=== PATIENT | male | born 1940 | race Caucasian/White ===

== ENCOUNTER 2020-08-17 20:36 | Inpatient (IN) | payer MEDICARE, SELFPAY ==
[2020-08-17] VITALS (13 sets, daily range): BP systolic 54–150; BP diastolic 45–107; PULSE 113–163; RESP 22–36; TEMP 35.7–36.9; O2SAT 98–100
--- NOTE | ~2020-08-17 | XR_ITS ---
EXAMINATION: XR chest 1V portable INDICATION: Shortness of breath TECHNIQUE: Portable AP chest at 2120 hours COMPARISON: 12/12/2014 FINDINGS: There are patchy opacities of the mid and lower lung zones. There is no pleural effusion or pneumothorax. The cardiomediastinal silhouette is normal. Linear subpleural opacities are seen in th e lower lung zones. IMPRESSION: 1. Patchy opacities of the mid and lower lung zones, consistent with pulmonary edema, pneumonia, or a telectasis. Reviewed, dictated and finalized at location A. DDED SOFTWARE DEVELOPER IMPRESSION: 1. Patchy opacities of the mid and lower lung zones, consistent with pulmonary edema, pneumonia, or atelectasis.
[2020-08-17] MEDS: LEVALBUTEROL NEB 1.25 MG/3 ML INHALATION ×2 (20:45→21:10)
--- NOTE | 2020-08-17 20:45 | ECG_ITS ---
Measurements Intervals [place] Rate: 160 P: [place]: 0 QRS: 251 QRSD: 125 T: 69 QT: 297 QTc: 484 Interpretive Statements ATRIAL FLUTTER/TACHYCARDIA WITH RAPID VENTRICULAR RESPONSE VENTRICULAR PREMATURE COMPLEXES RIGHT AXIS DEVIATION RIGHT BUNDLE BRANCH BLOCK ST ELEVATION IN INFERIOR LEADS- CONSIDER ACUTE INFARCT BASELINE ARTIFACT- I, II, III, AVR, AVL, AVF, V1-V3, V6 ABNORMAL ECG Electronically Signed On 08-18-2020 8:01:02 MIDDLE SCHOOL COACH by Otis Tejada D.O.
[2020-08-17] MEDS: SODIUM CHLORIDE 0.9% IV 1,000 ML 999 ML (21:01)
[2020-08-17] MEDS: dilTIAZem HCl INJ 25 MG/5 ML VIAL 20 MG IV PUSH (21:03)
[2020-08-17 21:08] LABS: Base Excess ABG -4.7 mmol/L (0-2); Oxygen Content ABG 20.7 %vol (16.0-22.0); Oxygen Saturation ABG 98.6 % (95-97); Oxyhemoglobin 98.1 % (94-100); PO2 ABG 160.9 mmHg (75-85); Total Hemoglobin 14.8 g/dL; pH ABG 7.08 (7.35-7.45)
[2020-08-17 21:13] LABS: Hematocrit 48.5 % (37.0-46.0); Hemoglobin 14.7 g/dL (12.4-15.3); Mean Corpuscular HGB Conc 30.3 g/dL (32.0-36.0); Mean Corpuscular Hemoglobin 30.6 pg (27.0-31.0); Mean Corpuscular Volume 100.8 fL (78.0-102.0); Mean Platelet Volume 11.6 fl (8.7-11.0); Platelet Count Result 262 K/mm3 (150-420); Red Blood Count 4.81 M/mm3 (4.70-6.10); Red Cell Distribution Width 12.6 % (11.6-14.4)
[2020-08-17 21:15] LABS: Device OTHER DEVICE; Modified Allen's Test Pass; Site Drawn RIGHT RADIAL
[2020-08-17] MEDS: MAGNESIUM SULF 2 GM/WATER 50ML 2 GM/50 ML BAG IVPB (21:17)
[2020-08-17] MEDS: IPRATROPIUM 0.5 MG/ALBUTEROL SULFATE 2.5 MG AMPUL.NEB 3 ML INHALATION (21:27)
[2020-08-17 21:28] LABS: Alanine Aminotransferase 107 U/L (16-63); Albumin Level 3.7 g/dL (3.4-5.0); Alkaline Phosphatase 128 U/L (46-116); Anion Gap 9 mmol/L (8-16); Aspartate Amino Transferase 96 U/L (15-37); Bilirubin,Total 0.4 mg/dL (0.00-1.00); Blood Urea Nitrogen 15 mg/dL (7-18); Carbon Dioxide 35 mmol/L (21-32); Chloride 103 mmol/L (98-108); Estimated Glomerular Filt Rate 53; Glucose 236 mg/dL (70-99); Magnesium 2.7 mg/dL (1.8-2.4); Osmolality Calculated 312 mOsm/kg (285-295); Potassium 4.1 mmol/L (3.5-5.1); Sodium 147 mmol/L (136-145); Total Protein 7.7 g/dL (6.4-8.2)
[2020-08-17 21:29] LABS: Prothrombin Time 10.9 Seconds (9.50-12.10)
[2020-08-17 21:31] LABS: White Blood Count 20.9 K/mm3 (4.8-10.8)
[2020-08-17 21:31] LABS: Lactic Acid Reflex 6.4 mmol/L (0.4-2.0)
[2020-08-17 21:34] LABS: Troponin I 77.5 ng/L (0.00-60.4)
[2020-08-17 21:41] LABS: SARS-CoV-2 Ag Negative (Negative)
[2020-08-17 21:49] LABS: BNP 130 pg/mL (0-100)
[2020-08-17 21:50] LABS: Band Neutrophils Percent 3 % (0-6); Basophils Percent Manual 1 % (0-1); Eosinophils Absolute Manual 1.25 K/mm3 (0.02-0.5); Eosinophils Percent Manual 6 % (1-6); Lymphocytes Absolute Manual 10.24 K/mm3 (1.1-4.5); Lymphocytes Percent Manual 49 % (18-44); Monocytes Absolute Manual 0.62 K/mm3 (0.1-0.90); Monocytes Percent Manual 3 % (3-9); Neutrophils Absolute Manual 8.56 K/mm3 (1.3-6.7); Neutrophils Percent Manual 38 % (46-73); Platelet Estimate Adequate (Adequate); Total Cells Counted 100
[2020-08-17 21:51] LABS: Atypical Lymphocytes Present; Platelet Clumps Present
[2020-08-17 21:53] LABS: D Dimer 0.64 mg/L (0.19-0.50)
--- NOTE | 2020-08-17 22:15 | ED.SOB ---
HPI - SOB/Dyspnea General Chief Complaint: Shortness of Breath/Dyspnea Stated Complaint: copd attack Source: patient, family and EMS Mode of arrival: EMS Limitations: no limitations and altered mental status History of Present Illness HPI Narrative: this is a 79-year-old male that presents via EMS with some shortness of breath has been going on for last 2 to 3 days was being treated for a pneumonia or bronchitis by his primary care physician and finished his course of antibiotics about a week ago, patient has been on home O2 at5L with some nebulizers and has used his albuterol nebulizer at home but was having difficulty breathing and called EMS. EN route EMS some put him on a non-rebreather and gave him a dose of Solu-Medrol. The patient was alert oriented and denied chest pain, with no fever or chills no chest pain was short of breath and was complaining of difficulty breathing with no nausea vomiting no abdominal pain no audible wheezing, the patient was not moving much air. Patient was alert and his is present discussed DNR status and the patient and his had discussed in the past that they did not want intubation are CPR performed. MD elicited complaint: shortness of breath Pertinent past history: COPD and pneumonia Onset (ago): day(s) Context: recent illness Timing: constant and progressively worsening Severity: severe Exacerbating factors: nothing Relieving factors: nothing Known history of: COPD Associated symptoms: cough Treatment prior to arrival: oxygen Related Data Home oxygen amount: other ( 5L) Home Medications Medication Instructions Recorded Confirmed Adults Multivitamin 1 tablet PO DAILY 08/17/20 08/17/20 albuterol sulfate 2.5 mg CONTINUOUS NEBULIZATION PRN 08/17/20 08/17/20 PRN albuterol sulfate [Ventolin HFA] 2 puff INHALATION BID 08/17/20 08/17/20 budesonide 0.5 mg INHALATION DAILY 08/17/20 08/17/20 budesonide-formoterol [Symbicort] 2 puff INHALATION BID 08/17/20 08/17/20 formoterol fumarate [Perforomist] 20 mcg INHALATION BID 08/17/20 08/17/20 lisinopril 10 mg PO DAILY 08/17/20 08/17/20 montelukast 10 mg PO DAILY 08/17/20 08/17/20 Allergies Allergy/AdvReac Type Severity Reaction Status Date / Time No Known Allergies Allergy Verified 08/17/20 21:04 Review of Systems Review of Systems: All systems reviewed & are unremarkable except as noted in HPI and below PMFSH Past Medical History Medical History COPD (chronic obstructive pulmonary disease) Exam Const: General: no acute distress and alert Orientation/consciousness: patient oriented x3 HENMT: Head: normal to inspection Eyes: Conjunctivae: conjunctivae normal Pupils: Equal, round and reactive pupils present EOM: EOMs intact bilaterally Direct Ophthalmoscopy: no photophobia Neck: Neck: normal visual inspection, no lymphadenopathy and no meningeal signs Chest: Chest palpation & inspection: normal inspection of the chest Resp: Effort & Inspection: labored, retractions, tachypneic and uses accessory muscles Auscultation: diminished lung sounds Cardio: Rate: tachycardic Rhythm: abnormal rhythm GI: GI Palp: Yes Soft to palpation Skin: General skin exam: normal color Rashes: no rashes Neuro: General: patient oriented x3, moves all extremities, no meningeal signs and no focal motor deficits Extrem: General: normal to inspection Psych: Mental Status: mental status grossly normal Affect: normal affect Thought content: Yes Normal thought content present Course Course Emergency Course: patient having difficulty moving air and after reassessment with some BiPAP the patient currently has altered mental status and currently on BiPAP had received Xopenex and albuterol along with some IV magnesium. The patient also had AFib which is not in his previous past medical history patient was started on Cardizem bolus and currently on a Cardizem drip. Patient currently is not res
[2020-08-17 22:43] LABS: Base Excess ABG -5.1 mmol/L (0-2); HCO3 ABG 25.7 mmol/L (23-29); Oxygen Content ABG 20.6 %vol (16.0-22.0); Oxygen Saturation ABG 99.5 % (95-97); Oxyhemoglobin 98.9 % (94-100); PCO2 ABG 76.9 mmHg (35-45); PO2 ABG 285.8 mmHg (75-85); Total Hemoglobin 14.3 g/dL; pH ABG 7.14 (7.35-7.45)
[2020-08-17 22:44] LABS: Device BIPAP; Modified Allen's Test Pass; Site Drawn RIGHT RADIAL
[2020-08-17 22:49] LABS: Expiratory Pressure 5 cmH2O; Inspiratory Pressure 12 cmH2O
--- NOTE | 2020-08-17 23:15 | PC.NURSE ---
Patient arrived to floor from ER at 2300. RT in room and assisted patient on Bipap at 14-05-70% Fi02. Color pale. Patient responding to commercial insurance underwriter via touch and name. Patient stating i cant breathe . Breathing techniques and relaxation techniques assisted with patient. Telemetry was added with continuous pulse ox. HR sinus tach 126 and Sp02 at 98% Bipap. BP at 54/45 checked x2. windows migration technician notified. aware. at bedside with patient.
--- NOTE | 2020-08-17 23:45 | PC.NURSE ---
New order received from MD to decrease Cardizem drip to 5mg/hr. Medication was titrated from 10mg to 5mg.
[2020-08-17] MEDS: APIXABAN 2.5 MG TABLET 5 MG PO (23:48)
[2020-08-17] MEDS: methylPREDNISolone SOD SUCC 125 MG VIAL 60 MG IV PUSH (23:48)
[2020-08-17] MEDS: LACTATED RINGERS 1,000 ML 100 ML IV CONT (23:48)
[2020-08-18] VITALS (24 sets, daily range): BP systolic 77–111; BP diastolic 56–69; PULSE 97–131; RESP 22–24; TEMP 36.5–37.3; O2SAT 97–100; BMI 20.9
[2020-08-18 00:10] LABS: Reflex Lactic Acid Yes or No Add Lactic
[2020-08-18] MEDS: IPRATROPIUM 0.5 MG/ALBUTEROL SULFATE 2.5 MG AMPUL.NEB 3 ML INHALATION ×4 (00:26→17:41)
[2020-08-18 00:29] LABS: Base Excess ABG -5.4 mmol/L (0-2); HCO3 ABG 23.7 mmol/L (23-29); Oxygen Content ABG 19.9 %vol (16.0-22.0); Oxygen Saturation ABG 98.6 % (95-97); Oxyhemoglobin 98.1 % (94-100); PCO2 ABG 62.5 mmHg (35-45); PO2 ABG 140.3 mmHg (75-85); Total Hemoglobin 14.3 g/dL
[2020-08-18 00:31] LABS: Device BIPAP; Modified Allen's Test Pass; Site Drawn RIGHT RADIAL
[2020-08-18 00:33] LABS: Expiratory Pressure 5 cmH2O; Inspiratory Pressure 14 cmH2O
--- NOTE | 2020-08-18 00:50 | PC.NURSE ---
new order received to NASIR coombs
[2020-08-18 00:51] LABS: Lactic Acid 2.9 mmol/L (0.4-2.0)
[2020-08-18] MEDS: SODIUM CHLORIDE 0.9% IV 500 ML IV CONT (01:01)
--- NOTE | 2020-08-18 01:11 | PC.NURSE ---
Doctor notified of lab results
--- NOTE | 2020-08-18 01:24 | PC.NURSE ---
Genetics Teacher rechecked BP at 0030 and was 77/61 HR 122. on phone with charge entry clerk and new orders stop cardizem drip and give 1x 500 NS bolus.
--- NOTE | 2020-08-18 01:25 | PC.NURSE ---
Cardizem drip was stopped at 0045.
--- NOTE | 2020-08-18 02:11 | PC.NURSE ---
Bolus completed at 0205, NS was stopped. Emblem Fuser Tender rechecked BP 90/63 HR 105. golf cart assembler notified.
[2020-08-18] MEDS: methylPREDNISolone SOD SUCC 125 MG VIAL 60 MG IV PUSH ×3 (05:45→17:41)
[2020-08-18 06:02] LABS: Base Excess ABG 1.7 mmol/L (0-2); HCO3 ABG 30.1 mmol/L (23-29); Oxygen Content ABG 19.5 %vol (16.0-22.0); Oxygen Saturation ABG 99.4 % (95-97); Oxyhemoglobin 98.7 % (94-100); PCO2 ABG 65.6 mmHg (35-45); PO2 ABG 277.5 mmHg (75-85); Total Hemoglobin 13.6 g/dL; pH ABG 7.28 (7.35-7.45)
[2020-08-18 06:07] LABS: Device BIPAP; Modified Allen's Test Pass; Site Drawn RIGHT RADIAL
[2020-08-18 06:08] LABS: Expiratory Pressure 5 cmH2O; Inspiratory Pressure 14 cmH2O
[2020-08-18 06:11] LABS: Basophils Absolute Auto 0.02 K/mm3 (0.00-0.10); Basophils Percent Auto 0.1 % (0.0-1.0); Eosinophils Absolute Auto 0.01 K/mm3 (0.02-0.50); Eosinophils Percent Auto 0.1 % (1.0-6.0); Hematocrit 42.3 % (37.0-46.0); Immature Granulocyte Absolute 0.07 K/mm3 (0.00-0.00); Immature Granulocyte Percent A 0.5 % (0.0-0.0); Lymphocytes Absolute Auto 0.49 K/mm3 (1.10-4.50); Lymphocytes Percent Auto 3.5 % (18.0-42.0); Mean Corpuscular HGB Conc 30.7 g/dL (32.0-36.0); Mean Corpuscular Hemoglobin 30.9 pg (27.0-31.0); Mean Corpuscular Volume 100.5 fL (78.0-102.0); Mean Platelet Volume 11.3 fl (8.7-11.0); Monocytes Absolute Auto 0.66 K/mm3 (0.10-0.90); Monocytes Percent Auto 4.7 % (2.0-11.0); Neutrophils Absolute Auto 12.8 K/mm3 (1.7-7.2); Neutrophils Percent Auto 91.1 % (50.0-70.0); Platelet Count Result 185 K/mm3 (150-420); Red Blood Count 4.21 M/mm3 (4.70-6.10); Red Cell Distribution Width 12.9 % (11.6-14.4); White Blood Count 14.1 K/mm3 (4.8-10.8)
[2020-08-18 06:36] LABS: Lactic Acid Reflex 3.5 mmol/L (0.4-2.0)
[2020-08-18 06:39] LABS: Alanine Aminotransferase 186 U/L (16-63); Alkaline Phosphatase 119 U/L (46-116); Anion Gap 5 mmol/L (8-16); Aspartate Amino Transferase 111 U/L (15-37); Bilirubin,Total 0.3 mg/dL (0.00-1.00); Blood Urea Nitrogen 23 mg/dL (7-18); Calcium 8.6 mg/dL (8.5-10.1); Carbon Dioxide 32 mmol/L (21-32); Chloride 107 mmol/L (98-108); Estimated CRCL calculation 28 ml/min; Estimated Glomerular Filt Rate 37; Glucose 150 mg/dL (70-99); Magnesium 2.9 mg/dL (1.8-2.4); Osmolality Calculated 304 mOsm/kg (285-295); Potassium 5.3 mmol/L (3.5-5.1); Sodium 144 mmol/L (136-145); Total Protein 6.5 g/dL (6.4-8.2)
--- NOTE | 2020-08-18 07:56 | PC.NURSE ---
CHRISTOPHER Trevizo decreased bipap fio2 from 70% to 50%
[2020-08-18 08:07] LABS: BNP 423 pg/mL (0-100)
--- NOTE | 2020-08-18 08:11 | PM.IMHP ---
H&P: HPI History of Present Illness Date/Time: 08/18/20 08:11 Chief Complaint: COPD Exacerbation Narrative: Camden Herrera is a 79 year old male who came to the ER last night with COPD exacerbation, respiratory failure. Pt was unresponsive. He started on BiPAP and began to show improvement with his ABGs, initial reading pH 7.08, pCO2 96, pO2 160.9, HCO3 28, and SpO2 98.6. At 1615 hours ABG results: 7.36, 56.5, 159.5, 31.2, 99.1 respectively. Pt had A fib and was started on a Cardizem drip and became hypotensive and then the Cardizem drip was discontinued and the BP increased to the 90s-100s systolic. Today Pt is in SR to ST. Pt was alert and oriented x 3 this AM. Pt has been making a good recovery today. Denies CP, N/V, Abdominal pain, numbness, tingling, fevers, chills. He is COVID Negative PMHx includes COPD, HTN, Allergies Review of Systems Constitutional: Constitutional: Reports no additional constitutional complaints, Denies body ache(s), Denies chills, Denies fever(s) and Denies headache(s) Cardiovascular: Cardiovascular: Reports no additional cardiovascular complaints, Denies chest pain and Denies chest pain at rest Respiratory: Respiratory: Reports no additional respiratory complaints, Denies chest congestion and Reports dyspnea (when off of the BiPAP with NC @ 6L/min eating) Gastrointestinal: Gastrointestinal: Reports no additional gastrointestinal complaints Genitourinary: Genitourinary: Reports no additional male genitourinary complaints Comments: nursing staffing coordinator informed me Pt has only had 40 mls of urine output. (Pt does have LR at 100 ml/h.) Musculoskeletal: Musculoskeletal: Reports no additional musculoskeletal complaints Neurologic: Reports system reviewed and no additional complaints, except as documented Comments: admits to improvement from when he was first taken to the ER which he admits he has no recollection Psychiatric: Psychiatric: Reports no additional psychiatric complaints [facility] Past Medical History Medical History (Updated 08/18/20 @ 17:39 by PAULY Chacon) COPD (chronic obstructive pulmonary disease) Hypertension Surgical History Surgical History (Updated 08/18/20 @ 16:45 by PAULY Chacon) History of cataract surgery Hx of surgical amputation of finger Family History Family History (Updated 08/18/20 @ 16:46 by PAULY Chacon) Mother Acute myocardial infarction Father Emphysema lung Sibling Myocardial infarct Sibling Myocardial infarct Sibling Myocardial infarct Social History Social History (Updated 08/18/20 @ 16:48 by PAULY Chacon) Social History: 30-35 years smoker of 2 PPD, Quit at age 50 Smoking status: Former smoker Tobacco type: cigarettes Alcohol intake: current Drinks per week: 1 Substance use: former Substance use type: does not use Gender identity (if verbalized by the patient): Male Spiritual care concerns: No Meds Home Medications and Allergies Home Medications Medication Instructions Recorded Confirmed Type Adults Multivitamin 1 tablet PO DAILY 08/17/20 08/17/20 History albuterol sulfate 2.5 mg CONTINUOUS NEBULIZATION PRN 08/17/20 08/17/20 History PRN albuterol sulfate [Ventolin HFA] 2 puff INHALATION BID 08/17/20 08/17/20 History budesonide 0.5 mg INHALATION DAILY 08/17/20 08/17/20 History budesonide-formoterol [Symbicort] 2 puff INHALATION BID 08/17/20 08/17/20 History formoterol fumarate [Perforomist] 20 mcg INHALATION BID 08/17/20 08/17/20 History lisinopril 10 mg PO DAILY 08/17/20 08/17/20 History montelukast 10 mg PO DAILY 08/17/20 08/17/20 History Allergies Allergy/AdvReac Type Severity Reaction Status Date / Time No Known Allergies Allergy Verified 08/17/20 21:04 Vital Signs Vital Signs - 24 hr 08/17/20 20:36 08/17/20 20:45 08/17/20 21:10 Temperature 98.4 F Pulse Rate 159 H 163 H 125 H Respiratory Rate 36 H 36 H 36 H Blood Pressure 150/107 H Pulse Oximetry 100 100 100
--- NOTE | 2020-08-18 08:30 | PC.NURSE ---
Bipap removed 3 liters o2 per nasal cannula applied for patient to eat breakfast. 0835 nasal cannula increased from 3 liters to 6 liters. 0845 Bipap reapplied. Patient could not tolerate nasal cannula
[2020-08-18] MEDS: APIXABAN 2.5 MG TABLET 5 MG PO ×2 (09:00→20:36)
[2020-08-18 10:46] LABS: Phosphorus 4.7 mg/dL (2.6-4.7)
--- NOTE | 2020-08-18 12:30 | PC.NURSE ---
CHRISTOPHER Trevizo decreased FIo2 to 40%
[2020-08-18] MEDS: LACTATED RINGERS 1,000 ML 100 ML IV CONT ×2 (13:33→18:21)
--- NOTE | 2020-08-18 13:33 | PC.NURSE ---
Patient has not urinated so far today. LR@100ml/hr restarted
[2020-08-18 15:14] LABS: Base Excess ABG 4.4 mmol/L (0-2); HCO3 ABG 31.2 mmol/L (23-29); Oxygen Content ABG 18.4 %vol (16.0-22.0); Oxygen Saturation ABG 99.1 % (95-97); Oxyhemoglobin 98.3 % (94-100); PCO2 ABG 56.5 mmHg (35-45); PO2 ABG 159.5 mmHg (75-85); Total Hemoglobin 13.1 g/dL; pH ABG 7.36 (7.35-7.45)
[2020-08-18 15:16] LABS: Device BIPAP; Modified Allen's Test Pass; Site Drawn RIGHT RADIAL
[2020-08-18 15:20] LABS: Expiratory Pressure 5 cmH2O; Inspiratory Pressure 14 cmH2O
--- NOTE | 2020-08-18 16:00 | PC.NURSE ---
Bipap decreased IPAP from14 to 12. FIO2 from 40% to 30%. ABG ordered for 1999
[2020-08-18] MEDS: guaiFENesin/DEXTROMETHORPHAN 5 ML UDC 10 ML PO (17:40)
[2020-08-18] MEDS: LACTATED RINGERS 500 ML 999 ML IV CONT (18:02)
[2020-08-18 20:22] LABS: Base Excess ABG 2.7 mmol/L (0-2); HCO3 ABG 28.5 mmol/L (23-29); Oxygen Content ABG 16.8 %vol (16.0-22.0); Oxygen Saturation ABG 97.1 % (95-97); Oxyhemoglobin 96.7 % (94-100); PCO2 ABG 48.9 mmHg (35-45); Total Hemoglobin 12.3 g/dL; pH ABG 7.38 (7.35-7.45)
[2020-08-18 20:23] LABS: Device BIPAP; Modified Allen's Test Pass; Site Drawn RIGHT RADIAL
[2020-08-18 20:24] LABS: Expiratory Pressure 5 cmH2O; Inspiratory Pressure 14 cmH2O
[2020-08-18] MEDS: TAMSULOSIN HCL 0.4 MG CAPSULE PO (20:36)
[2020-08-18 20:41] LABS: Lactic Acid Reflex 1.3 mmol/L (0.4-2.0)
--- NOTE | 2020-08-18 21:18 | PC.NURSE ---
Audograph Operator removed 18g LAC unable to flush. Catheter was bent and partially removed from patients arm. Audograph Operator removed rest of catheter, intact. Patient denies any c/o pain.
--- NOTE | 2020-08-18 22:11 | PC.NURSE ---
UA was obtained and sent to lab for testing. Awaiting for results.
[2020-08-18 22:25] LABS: Add Urine Microscopic? YES; Appearance Urine Clear (Clear); Bilirubin Urine Negative (Negative); Blood Urine Negative (Negative); Color Urine Yellow (Yellow); Glucose Urine UA Negative (Negative); Ketones Urine Negative (Negative); Leukocyte Esterase Ur Negative (Negative); Nitrate Urine Negative (Negative); Protein Urine Trace (Negative); Specific Grav Ur >= 1.030 (1.010-1.020); Urobilinogen Urine 0.2 mg/dL (0.2-1.0); pH Urine 5.5 (5.0-8.0)
[2020-08-18 22:31] LABS: Squamous Epithelial Cell Urine Rare /hpf (Few)
[2020-08-18 23:17] LABS: Troponin I 716.3 ng/L (0.00-60.4)
--- NOTE | 2020-08-18 23:18 | PC.NURSE ---
Addendum entered by Anahi Nagy RN 08/19/20 00:30: Correction: troponin level 716.3 Original Note: Pool Hall Inspector spoke with MD in regards to troponin level of 753. No new orders at this time. floor worker transfer bay notified.
[2020-08-19] VITALS (14 sets, daily range): BP systolic 104–157; BP diastolic 57–93; PULSE 93–127; RESP 20–24; TEMP 36.6–37.3; O2SAT 94–99
--- NOTE | 2020-08-19 00:18 | PC.NURSE ---
troponin level had to repeated. Doctor aware of results
[2020-08-19] MEDS: guaiFENesin/DEXTROMETHORPHAN 5 ML UDC 10 ML PO ×3 (00:33→12:25)
[2020-08-19] MEDS: IPRATROPIUM 0.5 MG/ALBUTEROL SULFATE 2.5 MG AMPUL.NEB 3 ML INHALATION ×3 (00:33→12:47)
[2020-08-19] MEDS: methylPREDNISolone SOD SUCC 125 MG VIAL 60 MG IV PUSH ×3 (00:33→12:25)
[2020-08-19 05:28] LABS: Base Excess ABG 4.8 mmol/L (0-2); Basophils Absolute Auto 0.02 K/mm3 (0.00-0.10); Basophils Percent Auto 0.1 % (0.0-1.0); Carboxyhemoglobin 0.3 % (0-1.5); HCO3 ABG 30.3 mmol/L (23-29); Hematocrit 35.2 % (37.0-46.0); Hemoglobin 10.8 g/dL (12.4-15.3); Immature Granulocyte Absolute 0.06 K/mm3 (0.00-0.00); Immature Granulocyte Percent A 0.4 % (0.0-0.0); Lymphocytes Absolute Auto 0.98 K/mm3 (1.10-4.50); Mean Corpuscular HGB Conc 30.7 g/dL (32.0-36.0); Mean Corpuscular Hemoglobin 30.1 pg (27.0-31.0); Mean Corpuscular Volume 98.1 fL (78.0-102.0); Mean Platelet Volume 11.1 fl (8.7-11.0); Methemoglobin ABG 0.3 % (0-1.5); Modified Allen's Test Pass; Monocytes Absolute Auto 0.74 K/mm3 (0.10-0.90); Monocytes Percent Auto 5.3 % (2.0-11.0); Neutrophils Absolute Auto 12.2 K/mm3 (1.7-7.2); Neutrophils Percent Auto 87.2 % (50.0-70.0); Oxygen Content ABG 15.6 %vol (16.0-22.0); Oxygen Saturation ABG 97.7 % (95-97); Oxyhemoglobin 97.1 % (94-100); PCO2 ABG 48.9 mmHg (35-45); PO2 ABG 109.4 mmHg (75-85); Platelet Count Result 161 K/mm3 (150-420); Red Blood Count 3.59 M/mm3 (4.70-6.10); Red Cell Distribution Width 13.1 % (11.6-14.4); Reduced Hemoglobin 2.3 % (0-1.5); Site Drawn RIGHT RADIAL; Total Hemoglobin 11.3 g/dL; pH ABG 7.41 (7.35-7.45)
[2020-08-19 05:29] LABS: Device BIPAP; Expiratory Pressure 5 cmH2O; Inspiratory Pressure 14 cmH2O
[2020-08-19] MEDS: LACTATED RINGERS 1,000 ML 100 ML IV CONT (05:38)
[2020-08-19 05:48] LABS: Alanine Aminotransferase 116 U/L (16-63); Albumin Level 2.8 g/dL (3.4-5.0); Alkaline Phosphatase 86 U/L (46-116); Anion Gap 3 mmol/L (8-16); Aspartate Amino Transferase 53 U/L (15-37); Bilirubin,Total 0.3 mg/dL (0.00-1.00); Blood Urea Nitrogen 30 mg/dL (7-18); Calcium 8.7 mg/dL (8.5-10.1); Carbon Dioxide 34 mmol/L (21-32); Chloride 104 mmol/L (98-108); Estimated CRCL calculation 40 ml/min; Estimated Glomerular Filt Rate 55; Glucose 133 mg/dL (70-99); Osmolality Calculated 300 mOsm/kg (285-295); Potassium 4.4 mmol/L (3.5-5.1); Sodium 141 mmol/L (136-145); Total Protein 5.9 g/dL (6.4-8.2)
[2020-08-19 05:49] LABS: Lactic Acid Reflex 1.7 mmol/L (0.4-2.0)
--- NOTE | 2020-08-19 08:21 | ECG_ITS ---
Measurements Intervals [place] Rate: 112 P: 90 [place]: 120 QRS: 113 QRSD: 133 T: -60 QT: 313 QTc: 428 Interpretive Statements SINUS TACHYCARDIA RIGHT BUNDLE BRANCH BLOCK LEFT POSTERIOR FASCICULAR BLOCK BASELINE ARTIFACT- I, III, AVL, AVF ABNORMAL ECG Electronically Signed On 08-19-2020 8:37:06 CO FOUNDER AND CHIEF STRATEGY OFFICER by Otis Tejada D.O.
[2020-08-19 09:17] LABS: Magnesium 2.5 mg/dL (1.8-2.4)
[2020-08-19] MEDS: APIXABAN 2.5 MG TABLET 5 MG PO (09:28)
[2020-08-19] MEDS: ALBUTEROL SULFATE NEB 2.5 MG/3 ML INH INHALATION (11:00)
[2020-08-19] MEDS: SALINE 0.65% NAS SOLN 44 ML BTL 1 SPRAY NASAL (11:35)
[2020-08-19 12:55] LABS: Troponin I 530.7 ng/L (0.00-60.4)
--- NOTE | 2020-08-19 13:27 | PM.DS ---
DS: Admitting Diagnosis Admitting Diagnosis Admitting Diagnosis: Pneumonia, COPD Exacerbation, Sepsis, new onset A fib DS: Discharge Diagnosis Discharge Diagnosis (1) Sepsis: Qualifiers: Acute respiratory failure type: with hypercapnia Sepsis acute organ dysfunction status: with acute organ dysfunction Severe sepsis acute organ dysfunction type: acute respiratory failure Code(s): A41.9 - Sepsis, unspecified organism Status: Acute Assessment and Plan: 08/18/2020 WBC 20.9 upon arrival now 14.1, LA 6.4 then 2.9 now 3.5, Hypotensive, Respiratory failure, Pneumonia, RR 24, Blood Cx Pending, Monitor VS, Cardiac Monitoring 08/19/2020 Improved, WBC 14, LA 1.7, Improved BP average 102/60 last 5 readings, RR 24, ST 100s-110, afebrile, Blood Cx still pending (2) Community acquired pneumonia: Qualifiers: Laterality: unspecified laterality Qualified Code(s): J18.9 - Pneumonia, unspecified organism Code(s): J18.9 - Pneumonia, unspecified organism Status: Acute Assessment and Plan: 08/18/2020 Started on Rocephin and Azithromycin, on BiPAP for respiratory failure d/t COPD Exacerbation and Pneumonia, Monitor VS, SpO2, respiratory status 08/19/2020 Continue with Ab as noted above, no on NC 3L/min, SpO2 92%, ST, no CP, given IS and Flutter Valve to assist with opening lungs and helping with coughing, Pt has off and on sweats which has been ongoing per the for months (3) COPD (chronic obstructive pulmonary disease): Qualifiers: COPD type: COPD with acute exacerbation Qualified Code(s): J44.1 - Chronic obstructive pulmonary disease with (acute) exacerbation Code(s): J44.9 - Chronic obstructive pulmonary disease, unspecified Status: Acute Assessment and Plan: 08/18/2020 DuoNeb Q6H, Methylprednisolone 60 mg Q6H, Robitussin DM 10 ml Q6H, BiPAP, VS, Residential Real Estate Agent 08/19/2020 Continue as noted above, adding IS and Flutter Valve, Pt was anxious about transfer to another facility and 0.5mg Ativan given SL. ABG at 0520 hours pH 7.41, CO2 48.9, O2109.4, HCO3 30.3, SpO2 97.7% nicely improved since initial results, Lung sound slightly improved since yesterday (4) Atrial fibrillation: Qualifiers: Atrial fibrillation type: unspecified Qualified Code(s): I48.91 - Unspecified atrial fibrillation Code(s): I48.91 - Unspecified atrial fibrillation Status: Acute Assessment and Plan: 08/18/2020 Cardizem started then stopped d/t Hypotension, Eliquis started, Currently SR to ST without chest pain, Troponin was 77.5 then 819, Pt denies CP, likely elevated d/t hypoxia, A fib likely d/t COPD exacerbation -> Hypoxia/Hypercapnia, Pt was unresponsive for some time in ER and as noted above A&O X 3 now, currently not on cardiac mediation, BNP 130 then 423 likely d/t cardiac strain r/t hypoxemia, will continue to monitor and will address any issues if and when they present 08/19/2020 Continue Eliquis, SR-ST 90s-120s, Troponin 716.3 and 530.7 (based on newer lab testing criteria), No CP, transferring Pt to [facility] for further evaluation, Dr. Laureen solitario, spoke with Practitioner [facility]ist (5) Hypotension: Code(s): I95.9 - Hypotension, unspecified Status: Acute Assessment and Plan: 08/18/2020 NS bolus given last night, LR now at 100 ml/hr, Pt has not made but about 40 mls of urine and BP remains soft in the 90-100s systolic, gave another 500 ml bolus, continue to monitor 08/19/2020 Pt currently a little soft at 102/60 (average BP over last 5 readings), gave Ativan for Pt's anxiety r/t transfer, nurse just informed me last BP reading 157/93 at 1350 hours DS: Summary Hospital Course Hospital Course: Pt has improved remarkable with respect to his COPD from being on BiPAP to now NC, A fib has resolved for the most part, Troponin has been on downward trend, Pneumonia being treated, Pt will benefit from being transferred to a higher level of care for Cardiolo
[2020-08-19] MEDS: LORazepam (*CRX) 0.5 MG TABLET PO (13:47)
--- NOTE | 2020-08-19 14:00 | PC.NURSE ---
Report called to [facility].
--- NOTE | 2020-08-19 15:05 | PC.NURSE ---
Ambulance here to transfer patient to IMU at [facility]. All belongings sent with . Patient aware of discharge. Able to pivot transfer from bed to stretcher with 1 ast. Pt. very SOB. Recovered in 3-5 minutes. All discharge and transfer paperwork given to EMS, report given to EMS. Patient left floor via stretcher accompanied
== END 2020-08-19 15:05 | disposition short-term general hospital (02) | DRG 871 ==
LOC: CHSED 20:51 → CHS2ND 22:23
PROVIDERS: Emergency Medicine; Nurse Practitioner Family; Admitting Provider Emergency Medicine; Emergency Provider Emergency Medicine; PCP Family Medicine; Visit Provider Emergency Medicine
DX: A41.9 Sepsis, unspecified organism (principal); J18.9 Pneumonia, unspecified organism; J96.02 Acute respiratory failure with hypercapnia; J44.0 Chronic obstructive pulmonary disease with (acute) lower respiratory infection; Z20.822 Contact with and (suspected) exposure to COVID-19; Z99.81 Dependence on supplemental oxygen; Z87.01 Personal history of pneumonia (recurrent); I48.91 Unspecified atrial fibrillation; R65.20 Severe sepsis without septic shock; I10 Essential (primary) hypertension; I95.9 Hypotension, unspecified; Z87.891 Personal history of nicotine dependence
CPT/HCPCS: 36415; 36600; 71045; 80053; 81001; 82375; 82805; 83050; 83605; 83735; 83880; 84100; 84484; 85025; 85380; 85610; 85730; 87040; 87426; 93005; 94003; 94640; 94660; 94667; 96365; 96367; 96375; 99285; A9270; C9803; J0456; J0696; J2930; J3475; J7030; J7040; J7120

== ENCOUNTER 2020-08-19 17:07 | Inpatient (IN) | payer MEDICARE, SELFPAY ==
[2020-08-19] VITALS (10 sets, daily range): BP systolic 115–125; BP diastolic 60–65; PULSE 70–121; RESP 18–26; TEMP 36.2; O2SAT 94–99; BMI 22.6
--- NOTE | ~2020-08-19 | XR_ITS ---
EXAMINATION: XR chest 2V EXAM DATE: 08/22/2020 13:21 INDICATION: Edema, weakness. TECHNIQUE: Frontal and lateral projections of the chest obtained and reviewed. Comparison is made to prior examination from 08/17/2020. FINDINGS: Moderate chronic hyperinflation. Cardiomediastinal silhouette is normal. There is no pneumo thorax suspected. Diffuse basilar prominent reticulonodular opacities again noted. Could be edema, in fection and/or chronic interstitial lung disease. No sizable pleural effusion. No pneumothorax. No co nfluent consolidation. There are mild bony degenerative changes. IMPRESSION: 1. Basilar reticulonodular pattern, could be persistent edema, infection and/or chronic interstitial lung disease. 2. Hyperinflation. Reviewed, dictated and finalized at location B. CTURAL METAL WORKER IMPRESSION: 1. Basilar reticulonodular pattern, could be persistent edema, infection and/o r chronic interstitial lung disease. 2. Hyperinflation.
--- NOTE | ~2020-08-19 | US_ITS ---
EXAMINATION: US abdomen limited EXAM DATE: 08/21/2020 09:17 INDICATION: Elevated liver function tests. TECHNIQUE: Multiple grayscale and Doppler images of the abdomen right upper quadrant were obtained (jose y a technologist who performed the scan) and subsequently reviewed. There is no prior study for bekah gould. FINDINGS: The pancreatic head and body are normal in appearance. The pancreatic tail is not visualized. The l iver has normal echogenicity and contour. There are no focal liver lesions identified. There is no evidence of intrahepatic biliary duct dilation. Portal venous flow was seen in the hepatopedal, nor mal direction and has normal Doppler waveform. No right-sided hydronephrosis. Common bile duct measures 4 mm, which is normal. The gallbladder wall is normal in thickness, with ex pected amount of distention. No sonographic evidence of pericholecystic fluid. There is no cholelit hiases. Technologist performing exam reports patient did not demonstrate sonographic Arciniega's sign. Please note that this sign is less reliable in patients who have received pain medication. IMPRESSION: 1. Unremarkable abdominal ultrasound exam. Reviewed, dictated and finalized at location B. WELTER
--- NOTE | 2020-08-19 16:45 | PM.IMHP ---
H&P: HPI History of Present Illness Date/Time: 08/19/20 16:45 Chief Complaint: Elevated troponin, reported new onset atrial fibrillation. Narrative: This is a very pleasant 79-year-old male, a former heavy smoker, with COPD and chronic respiratory failure on home oxygen who is being directly admitted to the IMU from the medical floor at the [facility] for further evaluation of elevated troponins and reported new onset of atrial fibrillation. The patient has pretty significant COPD and over the last couple of months it is to the point where he can barely walk 10 feet without getting short of breath although tells me he was walking up to half a mile a day just last summer. He has been treated with several rounds of antibiotics and steroids which tend to help for a period of time however his symptoms worsen shortly after finishing those prescriptions. More recently he notes an increase in cough and sputum production, describing thick yellow phlegm, as well as dyspnea on lesser and lesser exertion. He feels a bit better for maybe 2 hours after his nebulizers before becoming extremely short of breath again. He presented to the emergency department in [place] on the evening of 08/17/2020 in what sounds like respiratory extremis. At that time he was given a nebulizer, magnesium, and was started on IV steroids. While in the emergency department he became less and less responsive and a subsequent ABG demonstrated pH of 7.08, pCO2 of 96, PO2 of 160.9, and bicarb of 28.0. He was placed on a BiPAP and admitted to the floor with a working diagnosis of pneumonia and COPD exacerbation. There he reportedly developed atrial fibrillation/flutter with rapid ventricular response and his rate did improve somewhat with Cardizem drip however that was discontinued due to hypotension. He has had no chest discomfort but troponins were drawn and were markedly elevated, prompting transfer to this facility for cardiology evaluation. At the time my evaluation he is sitting up in bed in his much more comfortable than he has been the past couple of days. He reports that his breathing seems to be at baseline. The patient has no history of coronary disease and has not had exertional chest pain, however he is not able to exert himself due to his shortness of breath. He has been tachycardic and is only mildly aware of such. No pleuritic pain or palpitations. He denies lower extremity edema, calf pain and tenderness. He has frequent hot flashes and sweats with increased work of breathing, but has not had an overt fever. No nausea or vomiting. He has no history of sleep apnea or concerns for such. He has frequent sinus issues in postnasal drip which are unchanged. No exposure to those positive for COVID-19 in fact he had a negative rapid COVID test at the outside facility. Review of Systems Review of Systems: Narrative: Twelve systems were reviewed with pertinent positives and negatives as per HPI. He has lost about 40 pounds unintentionally over the years and tells me that he just does not have a good appetite and that food does not taste good. It sounds like he may get short of breath with eating as well. He has chronic sinus issues and postnasal drip which is unchanged. No sore throat. He denies dysphagia and concerns for aspiration. He sleeps poorly due to shortness of breath and cough and has had mild orthopnea. No PND. Neither the patient nor his have notice any apneic episodes or heavy snoring. Occasional slow stream when starting to urinate. He denies urinary retention. No dysuria. No lower extremity edema. He denies history of venous thromboembolism. Except as documented, all other systems were reviewed and are negative. [facility] Past Medical History Medical History (Updated 08/19/20 @ 19:25 by Carmita Jenkins PA-C) Chronic obstructive pulmonary disease Chronic respiratory failure with hypoxia, on home oxygen therapy On 3.5 liters nasal cannula.
[2020-08-19 17:39] LABS: Hemoglobin A1C 5.1 % (<5.7)
[2020-08-19 17:49] LABS: Anion Gap 2 mmol/L (8-16); Blood Urea Nitrogen 32 mg/dL (9-20); Calcium 8.9 mg/dL (8.4-10.2); Carbon Dioxide 34 mmol/L (22-30); Chloride 104 mmol/L (98-107); Estimated Glomerular Filt Rate > 60; Glucose 117 mg/dL (75-110); Magnesium 2.4 mg/dL (1.6-2.3); Potassium 5.1 mmol/L (3.4-5.0); Sodium 140 mmol/L (137-145)
[2020-08-19 18:08] LABS: NT Pro B Type Natriuretic Pept 8540 PG/ML (5-100); Troponin I 0.781 ng/mL (0.000-0.034)
[2020-08-19] MEDS: FUROSEMIDE INJ 40 MG/4 ML VIAL 20 MG IV PUSH (19:45)
[2020-08-19 19:55] LABS: Alveolar/Arterial O2 Gradient 87.1 mmHg; Base Excess ABG 3.2 mEq/l (+/-2.0); Carboxyhemoglobin 0.3 % THb (0-2.0); Device NASAL CANNULA; Fractional Inspired Oxygen 32 %; HCO3 ABG 30.2 mEq/l (22.0-26.0); Methemoglobin ABG 0.4 %THb (0-1.5); Modified Allen's Test Pass; Oxygen Content ABG 16.3 %vol (16.0-22.0); Oxygen Saturation ABG 93.9 % (95.0-100.0); Oxyhemoglobin 92.7 % THb (90.0-100.0); PCO2 ABG 56.8 mmHg (35.0-45.0); PO2 ABG 74.6 mmHg (80.0-100.0); PO2 FiO2 Ratio Arterial Blood 2.33 %; Reduced Hemoglobin 6.6 %THb (0-5.0); Site Drawn RIGHT RADIAL; Total Hemoglobin 12.5 g/dL (12.0-18.0); pH ABG 7.343 (7.350-7.450)
[2020-08-19] MEDS: DORNASE ALFA INH SOLN 1 MG/ML 2.5 ML AMP 2.5 MG INHALATION (20:06)
[2020-08-19] MEDS: LEVALBUTEROL NEB 1.25 MG/3 ML 0.63 MG INHALATION (20:06)
[2020-08-19] MEDS: IPRATROPIUM BR 0.02% INH SOLN 0.5 MG/2.5 ML VIAL INHALATION (20:06)
[2020-08-19] MEDS: guaiFENesin 12 HR 600 MG TABCR PO (20:59)
[2020-08-19] MEDS: methylPREDNISolone SOD SUCC 40 MG VIAL IV PUSH (20:59)
[2020-08-20] VITALS (25 sets, daily range): BP systolic 117–153; BP diastolic 59–90; PULSE 83–143; RESP 16–30; TEMP 36.1–36.7; O2SAT 94–100
--- NOTE | 2020-08-20 | ECHO_ITS ---
Patient Info Name: Camden Herrera Age: 79 years : 1940 Gender: Male Ht: 70 in Wt: 153 lbs BSA: 1.85 m2 HR: 89 bpm BP: 122 / 62 mmHg Heart Rhythm: Sinus Rhythm Technical Quality: Good Exam Date: 08/20/2020 11:01 AM Exam Location: [facility] Patient Status: Inpatient Admit Date: 08/19/2020 Staff Ordering Physician: Carmita Jenkins PA-C Powerhouse Engineer: Padma Bansal RDCS Attending Provider: Willie Kidd MD Referring Physician: Gregory GRAVES; Exam Type: CA echo doppler color flow Study Info Indications - ELEVATED TROPONIN Complete two-dimensional, color flow and Doppler transthoracic echocardiogram is performed. Summary 1. Complete two-dimensional, color flow and Doppler transthoracic echocardiogram is performed. 2. Left ventricular chamber dimension is mildly enlarged. 3. Left ventricular systolic function is moderately reduced, estimated at 40-45%. 4. There is no increased left ventricular wall thickness. 5. The left ventricular diastolic function is grade II diastolic dysfunction. 6. The apical septum is akinetic. 7. The anterior wall, apical lateral wall, apical cap, basal inferoseptal, mid inferoseptal, mid anteroseptal, and mid inferolateral wall are hypokinetic. 8. Left atrial chamber dimension is mildly enlarged. 9. There is mild mitral valve regurgitation. 10. There is mild tricuspid valve regurgitation. 11. Moderate pulmonary hypertension, estimated pulmonary arterial systolic pressure is 54 mmHg. Left Ventricle Left ventricular chamber dimension is mildly enlarged. Left ventricular systolic function is moderately reduced, estimated at 40-45%. There is no increased left ventricular wall thickness. The left ventricular diastolic function is grade II diastolic dysfunction. The apical septum is akinetic. The anterior wall, apical lateral wall, apical cap, basal inferoseptal, mid inferoseptal, mid anteroseptal, and mid inferolateral wall are hypokinetic. All other elizondo appear normal. Right Ventricle Right ventricular chamber dimension is normal. Right ventricular systolic function is normal. Left Atria Left atrial chamber dimension is mildly enlarged. Right Atria Right atrial chamber dimension is normal. Atrial Septum Intact interatrial septum visualized by color flow imaging. Aortic Valve The aortic valve is trileaflet. There is mild aortic valve sclerosis. There is no aortic valve stenosis. There is trace aortic valve regurgitation. Pulmonic Valve The pulmonic valve is normal. There is no pulmonic valve stenosis. There is trace pulmonic regurgitation. Mitral Valve The mitral valve has normal leaflets. There is no mitral valve stenosis. There is mild mitral valve regurgitation. Tricuspid Valve The tricuspid valve leaflets are normal. There is no significant tricuspid valve stenosis. There is mild tricuspid valve regurgitation. Moderate pulmonary hypertension, estimated pulmonary arterial systolic pressure is 54 mmHg. Pericardium/Pleural The pericardium appears normal. There is trivial pericardial effusion. Inferior Vena Cava Dilated inferior vena cava with <50% collapse upon inspiration consistent with elevated right atrial pressure, 15 mmHg. Aorta The aortic root size at the sinus of Valsalva is normal. Left Ventricular Outflow Tract Name Value Normal ---
[2020-08-20 01:59] LABS: Alveolar/Arterial O2 Gradient 68.1 mmHg; Base Excess ABG 6.3 mEq/l (+/-2.0); Carboxyhemoglobin 0.3 % THb (0-2.0); Device NON-INVASIVE VENT; Fractional Inspired Oxygen 35 %; HCO3 ABG 33.7 mEq/l (22.0-26.0); Methemoglobin ABG 0.3 %THb (0-1.5); Modified Allen's Test Pass; Oxygen Saturation ABG 97.7 % (95.0-100.0); Oxyhemoglobin 96.8 % THb (90.0-100.0); PCO2 ABG 61.9 mmHg (35.0-45.0); PO2 ABG 109.5 mmHg (80.0-100.0); PO2 FiO2 Ratio Arterial Blood 3.13 %; Reduced Hemoglobin 2.6 %THb (0-5.0); Site Drawn RIGHT RADIAL; Total Hemoglobin 13.1 g/dL (12.0-18.0); pH ABG 7.354 (7.350-7.450)
[2020-08-20 02:00] LABS: Non-Invasive Expiratory Pressure 5 CMH2O; Non-Invasive Inspiratory Pressure 12 CMH2O; Non-Invasive Vent Rate 4 /MIN
[2020-08-20 02:38] LABS: Troponin I 0.898 ng/mL (0.000-0.034)
[2020-08-20 04:56] LABS: Hematocrit 37.6 % (42.0-52.0); Hemoglobin 11.9 g/dL (14.0-18.0); Mean Corpuscular HGB Conc 31.6 g/dl (32-36); Mean Corpuscular Hemoglobin 30.7 pg (26-34); Mean Corpuscular Volume 97.2 fl (80-100); Platelet Count Result 182 k/mm3 (150-375); Red Blood Count 3.87 M/mm3 (4.6-6.20); Red Cell Distribution Width 13.6 % (11.5-14.5)
[2020-08-20 05:13] LABS: Alanine Aminotransferase 158 U/L (4-50); Albumin Level 3.3 g/dL (3.5-5.1); Alkaline Phosphatase 77 U/L (38-126); Anion Gap 0 mmol/L (8-16); Aspartate Amino Transferase 107 U/L (17-59); Bilirubin,Total 0.3 mg/dL (0.2-1.3); Blood Urea Nitrogen 31 mg/dL (9-20); Calcium 8.7 mg/dL (8.4-10.2); Carbon Dioxide 38 mmol/L (22-30); Chloride 103 mmol/L (98-107); Estimated CRCL calculation 64 ml/min; Estimated Glomerular Filt Rate > 60; Glucose 117 mg/dL (75-110); Magnesium 2.2 mg/dL (1.6-2.3); Sodium 141 mmol/L (137-145)
[2020-08-20] MEDS: methylPREDNISolone SOD SUCC 40 MG VIAL IV PUSH ×3 (06:06→20:38)
[2020-08-20] MEDS: guaiFENesin 12 HR 600 MG TABCR PO ×2 (08:39→20:38)
--- NOTE | 2020-08-20 08:47 | ECG_ITS ---
Measurements Intervals [place] Rate: 141 P: 95 CO: 119 QRS: 211 QRSD: 131 T: 67 QT: 285 QTc: 437 Interpretive Statements SINUS TACHYCARDIA WITH SHORT CO INTERVAL, POSSIBLE ATRIAL FLUTTER RIGHT BUNDLE BRANCH BLOCK LEFT POSTERIOR FASCICULAR BLOCK BASELINE WANDER- I, II, III, AVL, V4-V5 ABNORMAL ECG Electronically Signed On 08-20-2020 8:54:27 [employer] by Otis Tejada D.O.
--- NOTE | 2020-08-20 08:58 | ECG_ITS ---
Measurements Intervals [place] Rate: 124 P: NE: 0 QRS: 171 QRSD: 132 T: 62 QT: 318 QTc: 458 Interpretive Statements SINUS OR ECTOPIC ATRIAL TACHYCARDIA RIGHT BUNDLE BRANCH BLOCK LEFT POSTERIOR FASCICULAR BLOCK BASELINE WANDER- I, II, III, AVR, AVL, AVF, V4-V6 ABNORMAL ECG Electronically Signed On 08-20-2020 9:09:25 [employer] by Otis Tejada D.O.
[2020-08-20] MEDS: METOPROLOL TARTRATE INJ 5 MG/5 ML VIAL IV PUSH ×2 (09:00→20:38)
[2020-08-20] MEDS: LEVALBUTEROL NEB 1.25 MG/3 ML 0.63 MG INHALATION ×4 (09:30→20:08)
[2020-08-20] MEDS: DORNASE ALFA INH SOLN 1 MG/ML 2.5 ML AMP 2.5 MG INHALATION ×2 (09:30→20:08)
[2020-08-20] MEDS: IPRATROPIUM BR 0.02% INH SOLN 0.5 MG/2.5 ML VIAL INHALATION ×4 (09:30→20:08)
[2020-08-20] MEDS: dilTIAZem HCL 30 MG TABLET PO ×2 (10:13→16:45)
--- NOTE | 2020-08-20 12:32 | PM.CNCAR ---
Assessment and Plan Assessment and plan (1) Elevated troponin: Code(s): R77.8 - Other specified abnormalities of plasma proteins Status: Acute Assessment and Plan: It is concerning that he had acute onset of shortness of breath. It is possible that he had a non ST elevation myocardial infarction from acute plaque rupture causing his acute decompensation although I cannot exclude this being a type 2 infarction either secondary to severe underlying lung disease. A 2D echocardiogram Doppler will be ordered and reviewed and he may need a CT scan of chest to rule out PE. Will initiate aspirin 81 mg p.o. daily. Check a lipid panel and will start atorvastatin 20 mg daily. (2) Tachycardia: Code(s): R00.0 - Tachycardia, unspecified Status: Acute Assessment and Plan: Generally what is seen is sinus tachycardia. I agree with low-dose diltiazem 30 mg p.o. Q [address] scan chest. Echocardiogram pending. Would DC full dose Eliquis at this point. Recommend DVT prophylaxis. He very well may have a cardiomyopathy also. Echocardiogram will help determine this. (3) Chronic respiratory failure with hypoxia, on home oxygen therapy: Code(s): J96.11 - Chronic respiratory failure with hypoxia; Z99.81 - Dependence on supplemental oxygen Status: Acute Assessment and Plan: Pulmonology consultation (4) Community acquired pneumonia: Qualifiers: Laterality: unspecified laterality Qualified Code(s): J18.9 - Pneumonia, unspecified organism Code(s): J18.9 - Pneumonia, unspecified organism Status: Acute Assessment and Plan: On antibiotics (5) Hypertension: Qualifiers: Hypertension type: unspecified Qualified Code(s): I10 - Essential (primary) hypertension Code(s): I10 - Essential (primary) hypertension Status: Acute Assessment and Plan: Generally above goal History of Present Illness History of Present Illness Consult date/time: 08/20/20 12:32 Requesting physician: Carmita Jenkins PA-C Consult reason: atrial fibrillation Reason For Visit: Elevated troponin/new onset Afib Narrative: Date of service 08/20/2020 History patient is a 79-year-old male who was transferred for [place] because of elevated troponins and atrial flutter. Patient has underlying severe COPD. Is a former heavy smoker and is on chronic oxygen 3.5 L at home. He has been progressively more short of breath over the past several months. He can barely walk 5 ft without having dyspnea. On Wednesday which was 3 days ago he developed severe shortness of breath. He does have some shortness of breath like this at other times but usually his symptoms will improve with inhalers and nebulizers. However on Wednesday his symptoms did not improve and he was more lethargic. He went to the ER further workup and evaluation after his called EMS. He also has been diagnosed with pneumonia. While in [place] he was given nebulizers, magnesium as well as IV steroids. His CO2 level is 96 and he was placed on BiPAP. He was admitted to the floor up in [place] with a diagnosis of pneumonia and COPD exacerbation. Yesterday it was felt like the patient went into atrial flutter fibrillation and he was later transferred to this facility for further workup and evaluation. He was started on diltiazem drip. Troponins were drawn which were elevated. He denies any chest pain. Denies any paroxysmal nocturnal dyspnea, orthopnea, edema or palpitations. He has had intermittent episodes of tachycardia since admission to this hospital which all show sinus tachycardia with PACs. Review of Systems Review of Systems: All systems reviewed & are unremarkable except as noted in HPI and below Constitutional: Constitutional: Reports fatigue and Reports weakness Eyes: Eyes: Denies blurry vision ENT: Reports Normal hearing present Cardiovascular: Cardiovascular: Denies chest pa
--- NOTE | 2020-08-20 13:14 | PM.IMPN ---
Progress Note: A&P Assessment and Plan (1) Tachycardia: Code(s): R00.0 - Tachycardia, unspecified Status: Acute Assessment and Plan: Patient has abrupt onset of increased heart rate. Patient was evaluated bedside. He was tachypneic and anxious with concerns for worsening respiratory failure. He was given a dose of metoprolol 5 mg IV once. His heart rate improved. Started on low-dose oral Cardizem. Discussed with Cardiology felt that there was no evidence of atrial flutter. Patient probably has MAT. no indication for therapeutic anticoagulation at this time. Appreciate cardiology input. Echo result noted. On review, pateint still having episodes of tachycarida. Will continue the cardizem and monitor. 42 minutes spent on critical care time. (2) Acute and chronic respiratory failure: Code(s): J96.20 - Acute and chronic respiratory failure, unspecified whether with hypoxia or hypercapnia Status: Acute Assessment and Plan: Patient with chronic respiratory failure on 3.5 L of oxygen. ABG earlier this morning shows normal pH pCO2 that is worsened to 62. His BiPAP settings had been decrease probably explains this. Re-adjust BiPAP. If does well, then will give trial off and transtion to sleep time use. He was taken off the BiPAP by nursing but back on this now with new settings. ABG showing 7.36/62/74. pH almost normal. Will continue BiPAP and recheck ABG in the morning. (3) LV dysfunction: Code(s): I51.9 - Heart disease, unspecified Status: Acute Assessment and Plan: Echo showing EF 40-45%, diastolic dysfunction II, multiple elizondo are hypokinetic and moderate pulmonary HTN. Started on Diltiazen but consider changing to metoprolol if his respiratory status can tolerate. Resume lisinopril when able. May need ischemic evaluation at some time. (4) Elevated troponin: Code(s): R77.8 - Other specified abnormalities of plasma proteins Status: Acute Assessment and Plan: Troponins elevated at the outside hospital. Probably related to the respiratory failure and the tachycardia than from acute plaque rupture. Echo showing akinetic apical septum and multiple areas of hypokinesis. Cardiology has been consulted. Continue aspirin. Check lipid panel. Lipitor has been added - monitor LFTs closely. (5) COPD exacerbation: Code(s): J44.1 - Chronic obstructive pulmonary disease with (acute) exacerbation Status: Acute Assessment and Plan: No wheezing currently. Continue Solu-Medrol. Continue nebulizer treatments. He is also on Pulmozyme. (6) Community acquired pneumonia: Qualifiers: Laterality: unspecified laterality Qualified Code(s): J18.9 - Pneumonia, unspecified organism Code(s): J18.9 - Pneumonia, unspecified organism Status: Acute Assessment and Plan: CXR 08/17/20 reviewed and showing patchy opacities of the mid and lower lung zones. White count was 21K on admission. With IV antibiotics, white count has trended downward. White count worse today but possibly related to the steroids. Blood cultures are no growth. Continue Rocephin and azithromycin for now. (7) Hypertension: Qualifiers: Hypertension type: unspecified Qualified Code(s): I10 - Essential (primary) hypertension Code(s): I10 - Essential (primary) hypertension Status: Acute Assessment and Plan: Patient's blood pressure was reviewed on 08/20 Blood pressure very low to 54/45 in the evening of 08/17. On lisinopril at home but started here. Will start Diltiazem and monitor BP closely. (8) Elevated LFTs: Code(s): R79.89 - Other specified abnormal findings of blood chemistry Status: Acute Assessment and Plan: AST/ALT have been elevated off and on since admission. Could be hepatic congestion from the intermittent tachycardia or from the HoTN. Will proceed with workup.
[2020-08-20 13:40] LABS: Cholesterol 165 mg/dL (0-200); HDL Direct 60 mg/dL; Triglycerides 87 mg/dL (<150)
[2020-08-20 13:51] LABS: LDL Cholesterol Direct 80 mg/dL
[2020-08-20] MEDS: ENOXAPARIN 40 MG/0.4 ML SYRINGE SUB-Q (16:12)
[2020-08-20 16:26] LABS: Alveolar/Arterial O2 Gradient 103.6 mmHg; Base Excess ABG 6.8 mEq/l (+/-2.0); Carboxyhemoglobin 0.3 % THb (0-2.0); Fractional Inspired Oxygen 35 %; HCO3 ABG 34.3 mEq/l (22.0-26.0); Methemoglobin ABG 0.5 %THb (0-1.5); Oxygen Content ABG 18.9 %vol (16.0-22.0); Oxyhemoglobin 93.2 % THb (90.0-100.0); PO2 ABG 74.2 mmHg (80.0-100.0); PO2 FiO2 Ratio Arterial Blood 2.12 %; Total Hemoglobin 14.4 g/dL (12.0-18.0); pH ABG 7.363 (7.350-7.450)
[2020-08-20 16:27] LABS: Device NON-INVASIVE VENT; PCO2 ABG 61.7 mmHg (35.0-45.0); Site Drawn RIGHT BRACHIAL
[2020-08-20 16:28] LABS: Non-Invasive Expiratory Pressure 5 CMH2O; Non-Invasive Inspiratory Pressure 14 CMH2O; Non-Invasive Vent Rate 4 /MIN
[2020-08-20] MEDS: BUDESONIDE RESPULE NEB 0.5 MG/2 ML AMP INHALATION (20:08)
--- NOTE | 2020-08-20 23:28 | PC.NURSE ---
When I gave midnight medication patient chocked on medication and could not tolerate sips
[2020-08-21] VITALS (26 sets, daily range): BP systolic 110–133; BP diastolic 58–92; PULSE 80–103; RESP 13–30; TEMP 35.8–36.4; O2SAT 24–100
[2020-08-21] MEDS: LEVALBUTEROL NEB 1.25 MG/3 ML 0.63 MG INHALATION ×4 (01:45→20:40)
[2020-08-21] MEDS: IPRATROPIUM BR 0.02% INH SOLN 0.5 MG/2.5 ML VIAL INHALATION ×4 (01:45→20:33)
[2020-08-21 04:41] LABS: Basophils Percent Auto 0.1 % (0.2-1.2); Hematocrit 42.3 % (42.0-52.0); Hemoglobin 12.8 g/dL (14.0-18.0); Immature Granulocyte Absolute 0.07 K/mm3 (0.00-0.031); Immature Granulocyte Percent A 0.4 % (0-0.5); Lymphocytes Absolute Auto 0.96 K/mm3 (0.9-3.2); Mean Corpuscular HGB Conc 30.3 g/dl (32-36); Mean Corpuscular Hemoglobin 30.3 pg (26-34); Mean Platelet Volume 11.3 fl (7.4-10.4); Monocytes Absolute Auto 1.6 K/mm3 (0.1-0.6); Neutrophils Absolute Auto 13.4 K/mm3 (1.3-6.7); Neutrophils Percent Auto 83.5 % (45.5-73.1); Platelet Count Result 189 k/mm3 (150-375); Red Blood Count 4.23 M/mm3 (4.6-6.20); Red Cell Distribution Width 13.4 % (11.5-14.5); White Blood Count 16.1 K/mm3 (4.5-10.0)
[2020-08-21 05:00] LABS: Alveolar/Arterial O2 Gradient 114.1 mmHg; Base Excess ABG 6.4 mEq/l (+/-2.0); Fractional Inspired Oxygen 40 %; HCO3 ABG 34.6 mEq/l (22.0-26.0); Oxygen Content ABG 18.3 %vol (16.0-22.0); Oxygen Saturation ABG 96.5 % (95.0-100.0); Oxyhemoglobin 95.7 % THb (90.0-100.0); PO2 ABG 94.1 mmHg (80.0-100.0); PO2 FiO2 Ratio Arterial Blood 2.35 %; Total Hemoglobin 13.5 g/dL (12.0-18.0); pH ABG 7.331 (7.350-7.450)
[2020-08-21 05:04] LABS: Device NON-INVASIVE VENT; Modified Allen's Test Pass; Site Drawn RIGHT RADIAL
[2020-08-21 05:05] LABS: Non-Invasive Expiratory Pressure 5 CMH2O; Non-Invasive Inspiratory Pressure 14 CMH2O; Non-Invasive Vent Rate 4 /MIN
[2020-08-21 05:13] LABS: Alanine Aminotransferase 243 U/L (4-50); Albumin Level 3.6 g/dL (3.5-5.1); Alkaline Phosphatase 90 U/L (38-126); Aspartate Amino Transferase 133 U/L (17-59); Bilirubin,Total 0.6 mg/dL (0.2-1.3); Blood Urea Nitrogen 39 mg/dL (9-20); Calcium 9.2 mg/dL (8.4-10.2); Carbon Dioxide > 40 mmol/L (22-30); Chloride 101 mmol/L (98-107); Estimated CRCL calculation 52 ml/min; Estimated Glomerular Filt Rate > 60; Glucose 102 mg/dL (75-110); Magnesium 2.4 mg/dL (1.6-2.3); Potassium 5.7 mmol/L (3.4-5.0); Sodium 143 mmol/L (137-145)
[2020-08-21 05:38] LABS: Hepatitis B Surface Antigen Negative (Negative)
[2020-08-21 05:44] LABS: HAV RESULT Negative (Negative); Hepatitis B Core IgM Result Negative (Negative)
[2020-08-21] MEDS: methylPREDNISolone SOD SUCC 40 MG VIAL IV PUSH ×3 (05:51→20:23)
[2020-08-21 05:55] LABS: Hepatitis C Virus Antibody Negative (Negative)
[2020-08-21 06:07] LABS: Folic Acid 12.5 ng/mL (2.76->20)
[2020-08-21 06:10] LABS: Iron 60 ug/dL (49-181)
[2020-08-21 06:20] LABS: Percent Iron Saturation 25 % (20-50)
[2020-08-21] MEDS: DORNASE ALFA INH SOLN 1 MG/ML 2.5 ML AMP 2.5 MG INHALATION ×2 (08:57→20:34)
--- NOTE | 2020-08-21 11:24 | PM.PNCARD ---
Progress Note: A&P Assessment and Plan (1) Elevated troponin: Code(s): R77.8 - Other specified abnormalities of plasma proteins Status: Acute Assessment and Plan: It is concerning that he had acute onset of shortness of breath. It is possible that he had a non ST elevation myocardial infarction from acute plaque rupture causing his acute decompensation although I cannot exclude this being a type 2 infarction either secondary to severe underlying lung disease or even a stress-induced cardiomyopathy.. Echo with wall motion abnormalities or concerning for underlying ischemic disease. Offered cardiac catheterization versus stress testing versus medical management. At this point will pursue medical management. He wishes to think it over. Continue aspirin, statin (2) Tachycardia: Code(s): R00.0 - Tachycardia, unspecified Status: Acute Assessment and Plan: Generally what is seen is sinus tachycardia. DC diltiazem. Start him on metoprolol tartrate 25 mg p.o. q.12 hours (3) Chronic respiratory failure with hypoxia, on home oxygen therapy: Code(s): J96.11 - Chronic respiratory failure with hypoxia; Z99.81 - Dependence on supplemental oxygen Status: Acute Assessment and Plan: Pulmonology consultation (4) Community acquired pneumonia: Qualifiers: Laterality: unspecified laterality Qualified Code(s): J18.9 - Pneumonia, unspecified organism Code(s): J18.9 - Pneumonia, unspecified organism Status: Acute Assessment and Plan: On antibiotics (5) Hypertension: Qualifiers: Hypertension type: unspecified Qualified Code(s): I10 - Essential (primary) hypertension Code(s): I10 - Essential (primary) hypertension Status: Acute Assessment and Plan: Generally above goal (6) Cardiomyopathy: Code(s): I42.9 - Cardiomyopathy, unspecified Status: Acute Assessment and Plan: Will initiate metoprolol therapy 25 mg p.o. b.i.d. Was on lisinopril as an outpatient but he is hyperkalemic at this point. Will hold off on lisinopril for now (7) Pulmonary hypertension: Code(s): I27.20 - Pulmonary hypertension, unspecified Status: Acute Assessment and Plan: Moderate likely secondary to underlying lung disease Subjective Date/time seen: 08/21/20 11:24 Interval history: 79yo male with chronic respiratory failure and COPD here for acute respiratory failure and tachycardia. Date of service 08/21/2020: He feels much better today than he did yesterday. Less short of breath. No chest pain. Review of Systems Review of Systems: All systems reviewed & are unremarkable except as noted in HPI and below Constitutional: Constitutional: Reports fatigue, Denies headache(s) and Reports weakness Eyes: Eyes: Denies blurry vision ENT: Reports Normal hearing present, Denies headache(s), Denies lip swelling and Denies neck pain Cardiovascular: Cardiovascular: Denies chest pain, Denies leg edema and Reports dyspnea Respiratory: Respiratory: Reports cough and Reports dyspnea Gastrointestinal: Gastrointestinal: Denies abdominal pain Genitourinary: Genitourinary: Denies dysuria Musculoskeletal: Musculoskeletal: Denies back pain, Denies neck pain and Denies numbness Integumentary/Breasts: Skin/Breast: Denies dry skin and Denies unusual bruising Neurologic: Reports Normal hearing present, Reports confusion, Denies headache(s), Denies numbness and Reports weakness Psychiatric: Psychiatric: Reports confusion Endocrine: Endocrine: Reports fatigue Hematologic/Lymphatic: Hematologic/Lymphatic: Denies easy bleeding Allergic/Immunologic: Allergic/Immunologic: Denies GI upset with certain foods and Denies lip swelling Exam Narrative: Exam Narrative: Alert. Appears to be in mild distress Const: General: in distress, confusion and uncomfortable HENMT: General nose exam: Normal nares present Eyes:
[2020-08-21] MEDS: METOPROLOL TARTRATE 25 MG TABLET PO ×2 (12:12→20:24)
[2020-08-21] MEDS: MONTELUKAST SODIUM 10 MG TABLET PO (12:13)
[2020-08-21] MEDS: ASPIRIN 81 MG ENTERIC TABLET PO (12:14)
[2020-08-21] MEDS: LORATADINE 10 MG TABLET PO (12:17)
[2020-08-21] MEDS: ATORVASTATIN 20 MG TABLET PO (12:18)
--- NOTE | 2020-08-21 14:53 | PCSTNOTE ---
Please refer to the Bedside Swallow Evaluation in the EMR. Please note, silent aspiration cannot be ruled out at bedside.
--- NOTE | 2020-08-21 16:08 | PM.IMPN ---
Progress Note: A&P Assessment and Plan (1) Tachycardia: Code(s): R00.0 - Tachycardia, unspecified Status: Acute Assessment and Plan: Patient has abrupt onset of increased heart rate 08/20.. metoprolol 5 mg iv given with control of his tachycarida. carddiolgy following. (2) Acute and chronic respiratory failure: Code(s): J96.20 - Acute and chronic respiratory failure, unspecified whether with hypoxia or hypercapnia Status: Acute Assessment and Plan: Patient with chronic respiratory failure on 3.5 L of oxygen. ABG with hypercapnia, remained on BIPAP. contineu at night and prn during daytime. (3) LV dysfunction: Code(s): I51.9 - Heart disease, unspecified Status: Acute Assessment and Plan: Echo showing EF 40-45%, diastolic dysfunction II, multiple elziondo are hypokinetic and moderate pulmonary HTN. Started on Diltiazen but consider changing to metoprolol if his respiratory status can tolerate. Resume lisinopril when able. May need ischemic evaluation at some time. planned for medical management. (4) Elevated troponin: Code(s): R77.8 - Other specified abnormalities of plasma proteins Status: Acute Assessment and Plan: Troponins elevated at the outside hospital. Probably related to the respiratory failure and the tachycardia than from acute plaque rupture. Echo showing akinetic apical septum and multiple areas of hypokinesis. Cardiology has been consulted. Continue aspirin. Check lipid panel. Lipitor has been added - monitor LFTs closely. (5) COPD exacerbation: Code(s): J44.1 - Chronic obstructive pulmonary disease with (acute) exacerbation Status: Acute Assessment and Plan: No wheezing currently. Continue Solu-Medrol. Continue nebulizer treatments. He is also on Pulmozyme. pulmonary consulted and await his evaluation. (6) Community acquired pneumonia: Qualifiers: Laterality: unspecified laterality Qualified Code(s): J18.9 - Pneumonia, unspecified organism Code(s): J18.9 - Pneumonia, unspecified organism Status: Acute Assessment and Plan: CXR 08/17/20 reviewed and showing patchy opacities of the mid and lower lung zones. White count was 21K on admission. With IV antibiotics, white count has trended downward. White count worsened but possibly related to the steroids. Blood cultures are no growth. Continue Rocephin and azithromycin for now. wbc stable today. (7) Hypertension: Qualifiers: Hypertension type: unspecified Qualified Code(s): I10 - Essential (primary) hypertension Code(s): I10 - Essential (primary) hypertension Status: Acute Assessment and Plan: montior. stable. (8) Elevated LFTs: Code(s): R79.89 - Other specified abnormal findings of blood chemistry Status: Acute Assessment and Plan: AST/ALT have been elevated off and on since admission. Could be hepatic congestion from the intermittent tachycardia or from the HoTN. Will proceed with workup. LFTs remains elevated. abdomen us unremarkable. (9) DVT prophylaxis: Code(s): Z29.9 - Encounter for prophylactic measures, unspecified Status: Acute Assessment and Plan: Lovenox Additional Plan mild hyperkalemia: will give a dose of kayelxate to keep it down. Subjective Date/time seen: 08/21/20 16:08 Interval history: 79yo male with chronic respiratory failure and COPD here for acute respiratory failure and tachycardia. he is off bipap this am, feels better today. he denies any chest pain. remained on bipap whole day yesterday. he uses oxygen 3-4l at home all the time. for his underlying COPD. Review of Systems Constitutional: Constitutional: Reports fatigue and Reports weakness Eyes: Eyes: Denies blurry vision and Denies photophobia ENT: Denies epistaxis and Denies nasal discharge Cardiovascular: Cardiovascular: Denies chest p
[2020-08-21] MEDS: SODIUM POLYSTYRENE SULFONONATE 15 GM/60 ML BTL PO (17:33)
[2020-08-21] MEDS: guaiFENesin 12 HR 600 MG TABCR PO (20:24)
[2020-08-22] VITALS (25 sets, daily range): BP systolic 116–151; BP diastolic 61–77; PULSE 70–110; RESP 18–26; TEMP 35.7–36.9; O2SAT 93–100
[2020-08-22] MEDS: IPRATROPIUM BR 0.02% INH SOLN 0.5 MG/2.5 ML VIAL INHALATION ×4 (02:45→21:01)
[2020-08-22] MEDS: LEVALBUTEROL NEB 1.25 MG/3 ML 0.63 MG INHALATION ×4 (02:47→21:00)
[2020-08-22 04:36] LABS: Hematocrit 37.3 % (42.0-52.0); Hemoglobin 11.7 g/dL (14.0-18.0); Immature Granulocyte Absolute 0.04 K/mm3 (0.00-0.031); Immature Granulocyte Percent A 0.4 % (0-0.5); Lymphocytes Absolute Auto 1.03 K/mm3 (0.9-3.2); Lymphocytes Percent Auto 9.6 % (18.3-44.2); Mean Corpuscular HGB Conc 31.4 g/dl (32-36); Mean Corpuscular Hemoglobin 30.7 pg (26-34); Mean Corpuscular Volume 97.9 fl (80-100); Mean Platelet Volume 11.2 fl (7.4-10.4); Monocytes Absolute Auto 1.1 K/mm3 (0.1-0.6); Monocytes Percent Auto 9.9 % (2.6-8.5); Neutrophils Absolute Auto 8.6 K/mm3 (1.3-6.7); Neutrophils Percent Auto 80.1 % (45.5-73.1); Platelet Count Result 155 k/mm3 (150-375); Red Blood Count 3.81 M/mm3 (4.6-6.20); Red Cell Distribution Width 13.1 % (11.5-14.5); White Blood Count 10.8 K/mm3 (4.5-10.0)
[2020-08-22 05:27] LABS: Alanine Aminotransferase 390 U/L (4-50); Albumin Level 3.2 g/dL (3.5-5.1); Alkaline Phosphatase 78 U/L (38-126); Aspartate Amino Transferase 177 U/L (17-59); Bilirubin,Total 0.7 mg/dL (0.2-1.3); Blood Urea Nitrogen 38 mg/dL (9-20); Calcium 8.4 mg/dL (8.4-10.2); Carbon Dioxide > 40 mmol/L (22-30); Chloride 98 mmol/L (98-107); Estimated CRCL calculation 57 ml/min; Estimated Glomerular Filt Rate > 60; Glucose 106 mg/dL (75-110); Potassium 4.5 mmol/L (3.4-5.0); Sodium 142 mmol/L (137-145)
[2020-08-22] MEDS: methylPREDNISolone SOD SUCC 40 MG VIAL IV PUSH ×3 (05:35→21:14)
[2020-08-22] MEDS: DORNASE ALFA INH SOLN 1 MG/ML 2.5 ML AMP 2.5 MG INHALATION ×2 (07:32→21:00)
[2020-08-22] MEDS: ASPIRIN 81 MG ENTERIC TABLET PO (09:02)
[2020-08-22] MEDS: METOPROLOL TARTRATE 25 MG TABLET PO ×2 (09:02→21:13)
[2020-08-22] MEDS: guaiFENesin 12 HR 600 MG TABCR PO ×2 (09:02→21:13)
[2020-08-22] MEDS: ATORVASTATIN 20 MG TABLET PO (09:03)
[2020-08-22] MEDS: LORATADINE 10 MG TABLET PO (09:03)
[2020-08-22] MEDS: MONTELUKAST SODIUM 10 MG TABLET PO (09:03)
--- NOTE | 2020-08-22 11:53 | PM.PNCARD ---
Progress Note: A&P Assessment and Plan (1) Elevated troponin: Code(s): R77.8 - Other specified abnormalities of plasma proteins Status: Acute Assessment and Plan: It is concerning that he had acute onset of shortness of breath. It is possible that he had a non ST elevation myocardial infarction from acute plaque rupture causing his acute decompensation although I cannot exclude this being a type 2 infarction either secondary to severe underlying lung disease or even a stress-induced cardiomyopathy.. Echo with wall motion abnormalities or concerning for underlying ischemic disease. He wishes to have a catheterization at this point. (2) Tachycardia: Code(s): R00.0 - Tachycardia, unspecified Status: Acute Assessment and Plan: Generally what is seen is sinus tachycardia. DC diltiazem. Will increase metoprolol to 37.5 mg p.o. b.i.d. with further up titration as able (3) Chronic respiratory failure with hypoxia, on home oxygen therapy: Code(s): J96.11 - Chronic respiratory failure with hypoxia; Z99.81 - Dependence on supplemental oxygen Status: Acute Assessment and Plan: Pulmonology consultation Will repeat a PA and lateral chest x-ray today (4) Community acquired pneumonia: Qualifiers: Laterality: unspecified laterality Qualified Code(s): J18.9 - Pneumonia, unspecified organism Code(s): J18.9 - Pneumonia, unspecified organism Status: Acute Assessment and Plan: On antibiotics (5) Hypertension: Qualifiers: Hypertension type: unspecified Qualified Code(s): I10 - Essential (primary) hypertension Code(s): I10 - Essential (primary) hypertension Status: Acute Assessment and Plan: Generally above goal (6) Cardiomyopathy: Code(s): I42.9 - Cardiomyopathy, unspecified Status: Acute Assessment and Plan: Continue metoprolol. Restart low-dose lisinopril at 5 mg daily (7) Pulmonary hypertension: Code(s): I27.20 - Pulmonary hypertension, unspecified Status: Acute Assessment and Plan: Moderate likely secondary to underlying lung disease Subjective Date/time seen: 08/22/20 11:53 Interval history: 79yo male with chronic respiratory failure and COPD here for acute respiratory failure and tachycardia. Date of service 08/22/2020: Continues to feel less short of breath than he did at admission. No chest pain. Review of Systems Review of Systems: All systems reviewed & are unremarkable except as noted in HPI and below Constitutional: Constitutional: Reports fatigue, Denies headache(s) and Reports weakness Eyes: Eyes: Denies blurry vision ENT: Reports Normal hearing present, Denies headache(s), Denies lip swelling and Denies neck pain Cardiovascular: Cardiovascular: Denies chest pain, Denies leg edema and Reports dyspnea Respiratory: Respiratory: Reports cough and Reports dyspnea Gastrointestinal: Gastrointestinal: Denies abdominal pain Genitourinary: Genitourinary: Denies dysuria Musculoskeletal: Musculoskeletal: Denies back pain, Denies neck pain and Denies numbness Integumentary/Breasts: Skin/Breast: Denies dry skin and Denies unusual bruising Neurologic: Reports Normal hearing present, Reports confusion, Denies headache(s), Denies numbness and Reports weakness Psychiatric: Psychiatric: Reports confusion Endocrine: Endocrine: Reports fatigue Hematologic/Lymphatic: Hematologic/Lymphatic: Denies easy bleeding Allergic/Immunologic: Allergic/Immunologic: Denies GI upset with certain foods and Denies lip swelling Exam Narrative: Exam Narrative: Alert. Appears to be in mild distress Const: General: in distress, confusion and uncomfortable Orientation/consciousness: confusion HENMT: General nose exam: Normal nares present Eyes: Sclera: sclerae normal Neck: Neck: supple and no JVD Chest: Other: No reproducible chest wall pain to palpation Resp: Ef
--- NOTE | 2020-08-22 13:48 | PM.IMPN ---
Progress Note: A&P Assessment and Plan (1) Tachycardia: Code(s): R00.0 - Tachycardia, unspecified Status: Acute Assessment and Plan: Patient has abrupt onset of increased heart rate 08/20.. metoprolol 5 mg iv given with control of his tachycarida. carddiolgy following. Heart rate stable at present. (2) Acute and chronic respiratory failure: Code(s): J96.20 - Acute and chronic respiratory failure, unspecified whether with hypoxia or hypercapnia Status: Acute Assessment and Plan: Patient with chronic respiratory failure on 3.5 L of oxygen. ABG with hypercapnia, remained on BIPAP. contineu at night and prn during daytime. Will continue current treatment and stays okay possible discharge in the morning. (3) LV dysfunction: Code(s): I51.9 - Heart disease, unspecified Status: Acute Assessment and Plan: Echo showing EF 40-45%, diastolic dysfunction II, multiple elizondo are hypokinetic and moderate pulmonary HTN. Started on Diltiazen but consider changing to metoprolol if his respiratory status can tolerate. Resume lisinopril when able. May need ischemic evaluation at some time. planned for medical management. (4) Elevated troponin: Code(s): R77.8 - Other specified abnormalities of plasma proteins Status: Acute Assessment and Plan: Troponins elevated at the outside hospital. Probably related to the respiratory failure and the tachycardia than from acute plaque rupture. Echo showing akinetic apical septum and multiple areas of hypokinesis. Cardiology has been consulted. Continue aspirin. Check lipid panel. Lipitor has been added - monitor LFTs closely. (5) COPD exacerbation: Code(s): J44.1 - Chronic obstructive pulmonary disease with (acute) exacerbation Status: Acute Assessment and Plan: No wheezing currently. Continue Solu-Medrol. Continue nebulizer treatments. He is also on Pulmozyme. pulmonary consulted and await his evaluation. (6) Community acquired pneumonia: Qualifiers: Laterality: unspecified laterality Qualified Code(s): J18.9 - Pneumonia, unspecified organism Code(s): J18.9 - Pneumonia, unspecified organism Status: Acute Assessment and Plan: CXR 08/17/20 reviewed and showing patchy opacities of the mid and lower lung zones. White count was 21K on admission. With IV antibiotics, white count has trended downward. White count worsened but possibly related to the steroids. Blood cultures are no growth. Continue Rocephin and azithromycin for now. wbc stable today. (7) Hypertension: Qualifiers: Hypertension type: unspecified Qualified Code(s): I10 - Essential (primary) hypertension Code(s): I10 - Essential (primary) hypertension Status: Acute Assessment and Plan: montior. stable. (8) Elevated LFTs: Code(s): R79.89 - Other specified abnormal findings of blood chemistry Status: Acute Assessment and Plan: AST/ALT have been elevated off and on since admission. Could be hepatic congestion from the intermittent tachycardia or from the HoTN. Will proceed with workup. LFTs remains elevated. abdomen us unremarkable. (9) DVT prophylaxis: Code(s): Z29.9 - Encounter for prophylactic measures, unspecified Status: Acute Assessment and Plan: Lovenox Additional Plan Will start physical therapy and continue to monitor oxygen. A patient stays okay possible discharge in the morning. Subjective Date/time seen: 08/22/20 13:48 Interval history: 79yo male with chronic respiratory failure and COPD here for acute respiratory failure and tachycardia. he is off bipap now,, feels better today, he uses oxygen 3-4l at home all the time. for his underlying COPD. Patient was seen during the morning the on today. Patient is requiring less BiPAP use. Patient denies any chest pain. Mild shortness of breath. Mood stable.
[2020-08-22] MEDS: polyethylene glycoL 3350 17 GM POWD.PACK PO (16:31)
[2020-08-22] MEDS: BUDESONIDE RESPULE NEB 0.5 MG/2 ML AMP INHALATION (21:00)
[2020-08-22] MEDS: METOPROLOL TARTRATE 12.5 MG TABLET PO (21:13)
[2020-08-23] VITALS (38 sets, daily range): BP systolic 105–153; BP diastolic 55–77; PULSE 61–105; RESP 12–24; TEMP 36–36.8; O2SAT 92–100
[2020-08-23] MEDS: LEVALBUTEROL NEB 1.25 MG/3 ML 0.63 MG INHALATION ×3 (02:44→19:55)
[2020-08-23] MEDS: IPRATROPIUM BR 0.02% INH SOLN 0.5 MG/2.5 ML VIAL INHALATION ×3 (02:44→19:54)
[2020-08-23] MEDS: BUDESONIDE RESPULE NEB 0.5 MG/2 ML AMP INHALATION ×2 (07:44→19:55)
[2020-08-23] MEDS: DORNASE ALFA INH SOLN 1 MG/ML 2.5 ML AMP 2.5 MG INHALATION ×2 (07:44→19:55)
[2020-08-23] MEDS: ASPIRIN 81 MG ENTERIC TABLET PO (08:14)
[2020-08-23] MEDS: METOPROLOL TARTRATE 12.5 MG TABLET PO ×2 (08:14→21:04)
[2020-08-23] MEDS: ATORVASTATIN 20 MG TABLET PO (08:14)
[2020-08-23] MEDS: METOPROLOL TARTRATE 25 MG TABLET PO ×2 (08:14→21:04)
[2020-08-23] MEDS: MONTELUKAST SODIUM 10 MG TABLET PO (08:15)
[2020-08-23] MEDS: methylPREDNISolone SOD SUCC 40 MG VIAL IV PUSH ×3 (08:15→21:05)
[2020-08-23] MEDS: LORATADINE 10 MG TABLET PO (08:15)
[2020-08-23] MEDS: lisinopriL 5 MG TABLET PO (08:15)
[2020-08-23] MEDS: guaiFENesin 12 HR 600 MG TABCR PO ×2 (08:15→21:05)
--- NOTE | 2020-08-23 11:02 | WPDMODSED ---
Moderate Sedation Note-Pt Data Patient Data Diagnosis: troponin elevation left ventricular segmental dysfunction COPD Present Complaint: this is a 79-year-old man presenting with the CC shortness of breath and has established diagnosis of significant chronic lung disease. His troponin level was elevated and echocardiogram apparently demonstrates segmental left ventricular dysfunction and in this setting a angiogram has been recommended. Procedure to be performed/Plan: Left heart catheterization Allergies Allergy/AdvReac Type Severity Reaction Status Date / Time No Known Allergies Allergy Verified 08/19/20 18:23 Home Medications Medication Instructions Recorded Confirmed Type Perforomist 20 mcg INHALATION BID 08/17/20 08/19/20 History albuterol sulfate 2.5 mg CONTINUOUS NEBULIZATION PRN 08/17/20 08/19/20 History PRN albuterol sulfate [Ventolin HFA] 2 puff INHALATION BID 08/17/20 08/19/20 History budesonide 0.5 mg INHALATION DAILY 08/17/20 08/19/20 History lisinopril 10 mg PO DAILY 08/17/20 08/19/20 History montelukast 10 mg PO DAILY 08/17/20 08/19/20 History dextromethorphan-guaifenesin 10 ml PO Q6H PRN #10 ml 08/19/20 08/19/20 Rx [Robafen DM Cough] loratadine 10 mg PO DAILY 08/19/20 08/19/20 History Current Medications: Active Medications Acetaminophen (Acetaminophen 325 Mg Tablet) 650 mg PO Q4H PRN PRN Reason: Mild Pain (1-3) or Fever Aspirin (Aspirin 81 Mg Enteric Tablet) 81 mg PO QAM [facility] Last Admin: 08/23/20 08:14 Dose: 81 mg Documented by: Atorvastatin Calcium (Atorvastatin 20 Mg Tablet) 20 mg PO DAILY [facility] Last Admin: 08/23/20 08:14 Dose: 20 mg Documented by: Budesonide (Budesonide Respule Neb 0.5 Mg/2 Ml Amp) 0.5 mg INHALATION Q12HRT [facility] Last Admin: 08/23/20 07:44 Dose: 0.5 mg Documented by: Dornase Elver (Dornase Elver Inh Soln 1 Mg/Ml 2.5 Ml Amp) 2.5 mg INHALATION Q12HRT [facility] Last Admin: 08/23/20 07:44 Dose: 2.5 mg Documented by: Guaifenesin (Guaifenesin 12 Hr 600 Mg Tabcr) 600 mg PO Q12HR [facility] Last Admin: 08/23/20 08:15 Dose: 600 mg Documented by: Guaifenesin/Dextromethorphan (Guaifenesin/Dextromethorphan 10 Ml Udc) 10 ml PO Q6H PRN PRN Reason: Cough Ceftriaxone Sodium/Dextrose (Rocephin 1 Gm/D5w 50 Ml) 1 gm in 50 mls @ 100 mls/hr IVPB Q24H [facility] Last Infusion: 08/22/20 20:27 Dose: Infused Documented by: Azithromycin (Zithromax) 500 mg in 250 mls @ 250 mls/hr IVPB Q24H [facility] Last Infusion: 08/22/20 19:21 Dose: Infused Documented by: Ipratropium [place] (Ipratropium Br 0.02% Inh Soln 0.5 Mg/2.5 Ml Vial) 0.5 mg INHALATION Q6HRT [facility] Last Admin: 08/23/20 07:44 Dose: 0.5 mg Documented by: Levalbuterol HCl (Levalbuterol Neb 1.25 Mg/3 Ml) 0.63 mg INHALATION Q6HRT [facility] Last Admin: 08/23/20 07:45 Dose: 0.63 mg Documented by: Lisinopril (Lisinopril 5 Mg Tablet) 5 mg PO QAM [facility] Last Admin: 08/23/20 08:15 Dose: 5 mg Documented by: Loratadine (Loratadine 10 Mg Tablet) 10 mg PO DAILY [facility] Last Admin: 08/23/20 08:15 Dose: 10 mg Documented by: Methylprednisolone Sodium Succinate (Methylprednisolone Sod Succ 40 Mg Vial) 40 mg IV PUSH Q8HR [facility] Last Admin: 08/23/20 08:15 Dose: 40 mg Documented by: Metoprolol Tartrate (Metoprolol Tartrate Inj 5 Mg/5 Ml Vial) 5 mg IV PUSH Q4H PRN PRN Reason: Heart Rate- High Last Admin: 08/20/20 20:38 Dose: 5 mg Documented by: Metoprolol Tartrate (Metoprolol Tartrate 12.5 Mg Tablet) 12.5 mg PO Q12HR [facility] Last Admin: 08/23/20 08:14 Dose: 12.5 mg Documented by: Metoprolol Tartrate (Metoprolol Tartrate 25 Mg Tablet) 25 mg PO Q12HR [facility] Last Admin: 08/23/20 08:14 Dose: 25 mg Documented by: Montelukast Sodium (Montelukast Sodium 10 Mg Tablet) 10 mg PO DAILY [facility] Last Admin: 08/23/20 08:15 Dose: 10 mg Documented by: Polyethylene Glycol (Polyethylene Glycol 3350 17 Gm Powd.Pack) 17 gm PO QAM [facility] Last Admin: 08/22/20 16:31 Dose: 17 gm Documented by: Sedation/Anesthesia: No previous sedation/anesthesia problems (includi
--- NOTE | 2020-08-23 11:25 | PC.NURSE ---
Patient to [facility] via stretcher. Report given to REGINA Beverly.
--- NOTE | 2020-08-23 11:42 | PM.IMPN ---
Progress Note: A&P Assessment and Plan (1) Tachycardia: Code(s): R00.0 - Tachycardia, unspecified Status: Acute Assessment and Plan: Patient has abrupt onset of increased heart rate 08/20.. metoprolol 5 mg iv given with control of his tachycarida. carddiolgy following. Heart rate stable at present. (2) Acute and chronic respiratory failure: Code(s): J96.20 - Acute and chronic respiratory failure, unspecified whether with hypoxia or hypercapnia Status: Acute Assessment and Plan: Patient with chronic respiratory failure on 3.5 L of oxygen. ABG with hypercapnia, remained on BIPAP. contineu at night and prn during daytime. Will continue current treatment and stays okay possible discharge in the morning. (3) LV dysfunction: Code(s): I51.9 - Heart disease, unspecified Status: Acute Assessment and Plan: Echo showing EF 40-45%, diastolic dysfunction II, multiple elizondo are hypokinetic and moderate pulmonary HTN. Started on Diltiazen but consider changing to metoprolol if his respiratory status can tolerate. Resume lisinopril when able. May need ischemic evaluation at some time. planned for medical management. (4) Elevated troponin: Code(s): R77.8 - Other specified abnormalities of plasma proteins Status: Acute Assessment and Plan: Troponins elevated at the outside hospital. Probably related to the respiratory failure and the tachycardia than from acute plaque rupture. Echo showing akinetic apical septum and multiple areas of hypokinesis. Cardiology has been consulted. Continue aspirin. Check lipid panel. Lipitor has been added - monitor LFTs closely. (5) COPD exacerbation: Code(s): J44.1 - Chronic obstructive pulmonary disease with (acute) exacerbation Status: Acute Assessment and Plan: No wheezing currently. Continue Solu-Medrol. Continue nebulizer treatments. He is also on Pulmozyme. pulmonary consulted and await his evaluation. (6) Community acquired pneumonia: Qualifiers: Laterality: unspecified laterality Qualified Code(s): J18.9 - Pneumonia, unspecified organism Code(s): J18.9 - Pneumonia, unspecified organism Status: Acute Assessment and Plan: CXR 08/17/20 reviewed and showing patchy opacities of the mid and lower lung zones. White count was 21K on admission. With IV antibiotics, white count has trended downward. White count worsened but possibly related to the steroids. Blood cultures are no growth. Continue Rocephin and azithromycin for now. wbc stable today. (7) Hypertension: Qualifiers: Hypertension type: unspecified Qualified Code(s): I10 - Essential (primary) hypertension Code(s): I10 - Essential (primary) hypertension Status: Acute Assessment and Plan: montior. stable. (8) Elevated LFTs: Code(s): R79.89 - Other specified abnormal findings of blood chemistry Status: Acute Assessment and Plan: AST/ALT have been elevated off and on since admission. Could be hepatic congestion from the intermittent tachycardia or from the HoTN. Will proceed with workup. LFTs remains elevated. abdomen us unremarkable. (9) DVT prophylaxis: Code(s): Z29.9 - Encounter for prophylactic measures, unspecified Status: Acute Assessment and Plan: Lovenox Additional Plan Will start physical therapy and continue to monitor oxygen. Patient is scheduled for cardiac catheterization today, cardiac consult noted. Subjective Date/time seen: 08/23/20 11:42 Interval history: 79yo male with chronic respiratory failure and COPD here for acute respiratory failure and tachycardia. he is off bipap now,, feels better today, he uses oxygen 3-4l at home all the time. for his underlying COPD. Patient was seen during the morning the on today. Patient is requiring less BiPAP use. Patient denies any chest pain. Mild shortness of
--- NOTE | 2020-08-23 11:57 | P.PCNCC_ITS ---
Cardiac Cath Procedure Note Date of procedure:: 08/23/20 Performing physician:: Simon Barrios MD Indication:: left ventricular systolic dysfunction, troponin elevation, significant chronic lung disease Brief clinical history:: this is a 79-year-old patient who presented to another hospital several days ago with respiratory distress was very tachycardic and in that setting had a moderate troponin rise. Echocardiogram was felt to show regional wall motion abnormalities and as such an angiogram was recommended. Procedure Procedure performed:: Left ventriculography coronary angiography Sedation/Medication given:: Versed 2 mg case start time 11:40 a.m. case end time 11:53 a.m. sedation provided by Pinky Modi RN, trained observer Access site:: right femoral artery Estimated blood loss:: 15-20 cc Procedure note:: patient was brought to the cardiac catheterization lab postabsorptive state the right femoral triangle was prepared and draped in the usual fashion. Anesthesia was provided with 1% lidocaine infiltrated locally. Using the modified Seldinger technique 5 Iranian sheath was placed into the femoral artery. After this I used a 5 Iranian angled pigtail catheter to demonstrate left-sided hemodynamics and to injected LV g in the are AO projection. After this the pigtail catheter was withdrawn. A 5 Iranian FL4 catheter was used to engage and inject the left coronary artery multiple projections and a 5 Iranian JR4 catheter was used to engage inject the right coronary artery. The cine angiograms were then reviewed and the case was terminated. I was going to consider a Angio-Seal device but the patient following sedation was not entirely coherent and contaminated the puncture site by violating sterile field and touching the sheath area with his right hand. For this reason an Angio-Seal device would be improved. He will be taken to the holding area for manual sheath Removal. Findings:: Hemodynamics: Central aortic pressure is 112/50 left ventricle 112 over to end-diastolic pressure of 10 there is no systolic gradient across the aortic valve. Left ventricle: The LV is slightly dilated there is moderate global systolic hypocontractility with an ejection fraction I would visually estimate to be 35%. I did not see any regional wall motion abnormalities. The left main coronary artery is fairly small but widely patent the left anterior descending is a small to medium caliber vessel extending down to around the apex the LAD has very mild 20% stenosis in the midportion of the vessel there is otherwise no significant lesion identified again it is relatively small the circumflex is a small caliber vessel giving rise to the marginal branch is it is smooth and angiographically normal right coronary artery is a medium caliber vessel dominant to the posterior circulation and is smooth and angiographically non disease. Conclusion:: 1. Angiographically modest non occlusive coronary disease with minimal plaquing in the mid LAD otherwise small caliber but non diseased sharifa nary arteries with right coronary dominant circulation 2. mild LV enlargement with moderate global systolic hypokinesia. Simon Barrios [facility]
--- NOTE | 2020-08-23 13:01 | PCRCNOTE ---
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
--- NOTE | 2020-08-23 13:07 | PCOTNOTE ---
Attempted OT treatment, but unable to complete. RN reported that patient is currently in a cardiac cath and will be on bed rest until 16:30. Will attempt again tomorrow.
--- NOTE | 2020-08-23 13:46 | PC.NURSE ---
Patient returned to room following cardiac cath. Report received from RGEINA Perez.
[2020-08-23] MEDS: polyethylene glycoL 3350 17 GM POWD.PACK PO (14:18)
[2020-08-23] MEDS: SODIUM CHLORIDE 0.9% IV 1,000 ML 125 ML IV CONT (14:18)
[2020-08-23] MEDS: guaiFENesin/DEXTROMETHORPHAN 10 ML UDC PO (21:07)
[2020-08-24] VITALS (24 sets, daily range): BP systolic 128–143; BP diastolic 56–62; PULSE 67–102; RESP 12–20; TEMP 36.1–36.5; O2SAT 93–100
[2020-08-24] MEDS: IPRATROPIUM BR 0.02% INH SOLN 0.5 MG/2.5 ML VIAL INHALATION ×4 (02:13→20:29)
[2020-08-24] MEDS: LEVALBUTEROL NEB 1.25 MG/3 ML 0.63 MG INHALATION ×4 (02:13→20:29)
[2020-08-24] MEDS: BUDESONIDE RESPULE NEB 0.5 MG/2 ML AMP INHALATION ×2 (08:03→20:33)
[2020-08-24] MEDS: methylPREDNISolone SOD SUCC 40 MG VIAL IV PUSH (09:28)
[2020-08-24] MEDS: LORATADINE 10 MG TABLET PO (09:29)
[2020-08-24] MEDS: guaiFENesin/DEXTROMETHORPHAN 10 ML UDC PO ×2 (09:29→21:00)
[2020-08-24] MEDS: ATORVASTATIN 20 MG TABLET PO (09:29)
[2020-08-24] MEDS: METOPROLOL TARTRATE 12.5 MG TABLET PO ×2 (09:30→21:00)
[2020-08-24] MEDS: METOPROLOL TARTRATE 25 MG TABLET PO (09:30)
[2020-08-24] MEDS: lisinopriL 5 MG TABLET PO (09:31)
[2020-08-24] MEDS: MONTELUKAST SODIUM 10 MG TABLET PO (09:31)
[2020-08-24] MEDS: guaiFENesin 12 HR 600 MG TABCR PO ×2 (09:31→21:01)
[2020-08-24] MEDS: ASPIRIN 81 MG ENTERIC TABLET PO (09:31)
--- NOTE | 2020-08-24 10:09 | PM.IMPN ---
Progress Note: A&P Assessment and Plan (1) Tachycardia: Code(s): R00.0 - Tachycardia, unspecified Status: Acute Assessment and Plan: Patient has abrupt onset of increased heart rate 08/20.. metoprolol 5 mg iv given with control of his tachycarida. carddiolgy following. Heart rate stable at present. (2) Acute and chronic respiratory failure: Code(s): J96.20 - Acute and chronic respiratory failure, unspecified whether with hypoxia or hypercapnia Status: Acute Assessment and Plan: Patient with chronic respiratory failure on 3.5 L of oxygen. ABG with hypercapnia, remained on BIPAP. contineu at night and prn during daytime. Will continue current treatment. Increase activity as tolerated. (3) LV dysfunction: Code(s): I51.9 - Heart disease, unspecified Status: Acute Assessment and Plan: Echo showing EF 40-45%, diastolic dysfunction II, multiple elizondo are hypokinetic and moderate pulmonary HTN. Started on Diltiazen but consider changing to metoprolol if his respiratory status can tolerate. Resume lisinopril when able. May need ischemic evaluation at some time. planned for medical management. (4) Elevated troponin: Code(s): R77.8 - Other specified abnormalities of plasma proteins Status: Acute Assessment and Plan: Troponins elevated at the outside hospital. Probably related to the respiratory failure and the tachycardia than from acute plaque rupture. Echo showing akinetic apical septum and multiple areas of hypokinesis. Cardiology has been consulted. Continue aspirin. Check lipid panel. Lipitor has been added - monitor LFTs closely. (5) COPD exacerbation: Code(s): J44.1 - Chronic obstructive pulmonary disease with (acute) exacerbation Status: Acute Assessment and Plan: No wheezing currently. Continue Solu-Medrol. Continue nebulizer treatments. He is also on Pulmozyme. pulmonary consulted and await his evaluation. (6) Community acquired pneumonia: Qualifiers: Laterality: unspecified laterality Qualified Code(s): J18.9 - Pneumonia, unspecified organism Code(s): J18.9 - Pneumonia, unspecified organism Status: Acute Assessment and Plan: CXR 08/17/20 reviewed and showing patchy opacities of the mid and lower lung zones. White count was 21K on admission. With IV antibiotics, white count has trended downward. White count worsened but possibly related to the steroids. Blood cultures are no growth. Continue Rocephin and azithromycin for now. wbc stable today. (7) Hypertension: Qualifiers: Hypertension type: unspecified Qualified Code(s): I10 - Essential (primary) hypertension Code(s): I10 - Essential (primary) hypertension Status: Acute Assessment and Plan: montior. stable. (8) Elevated LFTs: Code(s): R79.89 - Other specified abnormal findings of blood chemistry Status: Acute Assessment and Plan: AST/ALT have been elevated off and on since admission. Could be hepatic congestion from the intermittent tachycardia or from the HoTN. Will proceed with workup. LFTs remains elevated. abdomen us unremarkable. (9) DVT prophylaxis: Code(s): Z29.9 - Encounter for prophylactic measures, unspecified Status: Acute Assessment and Plan: Lovenox Additional Plan Will start physical therapy and continue to monitor oxygen. Will discuss with Cardiology about the discharge plan. Subjective Date/time seen: 08/24/20 10:09 Interval history: 79yo male with chronic respiratory failure and COPD here for acute respiratory failure and tachycardia. he is off bipap now,, feels better today, he uses oxygen 3-4l at home all the time. for his underlying COPD. Had cardiac catheterization yesterday. Patient was seen during the morning the on today. Patient is requiring less BiPAP use. Patient denies any chest pain. Mild shortness o
--- NOTE | 2020-08-24 13:37 | PM.CNPUL ---
Assessment and Plan Assessment and plan (1) Acute and chronic respiratory failure: Code(s): J96.20 - Acute and chronic respiratory failure, unspecified whether with hypoxia or hypercapnia Status: Acute Assessment and Plan: This is what happened; increased respiratory distress -> rapid atrial fib-> increased shortness of breath. Bad lungs pushed his heart over the edge. 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 pO2 was 160, so using O2 at 3-4 L/min at home was part of his problem. I spoke with him and his about goals of O2 therapy including using O2 to keep saturation 89-94% while on supplemental O2. Higher amounts can worsen CO2 retention. He says that he bought his own portable O2 concentrator a month or two ago, as he needed O2 in the day, but was not able to leave the house to be tested as his O2 level dropped. He decided to buy a concentrator so he could go get his COVID vaccines. His 2nd one is scheduled for this Aug 28. Over the last 6 days, serum CO2 is higher, today on chemistry it is > 40, so a small amt of acetazolamide may be helpful. PLAN: *O2 testing prior to discharge, with use of the lowest amount of O2 that gets his saturation to 88% or above. *This will be what he uses until he gets retested when he is closer to his baseline. * PFTs in 6-8 weeks f he has never had these. * cardiopulmonary rehab to increase quality of life; cannot walk any distance at all now. * I am not convinced that he had pneumonia. He had increased WBC 20.9, but no change in sputum. His CXR could have been pulmonary edema. He has had 6 days of ceftriaxone and azithromycin; this is enough for pneumonia, if he had pneumonia. He was on antibiotics at [facility] before admission here, and 2 rounds in Jun/Jul; ok to stop these IV and go to oral. * He has enlarged LV w LV hypokinesis, EF 40-45%, RVSP 54 mm Hg, TR, No obstructing lesions. On management for low EF per cardiology. * ApneaLink tonight on 3 L/min to assure that this is sufficient. * change from IV solumedrol 40 mg Q 8 hours to oral prednisone tomorrow 50 mg at 8:00 am with food * review his home COPD meds; may need some adjustments prior to discharge, and often these decisions are based on how much the patient pays for the prescriptions. Daliresp 250 mcg a day may be helpful, increasing to 500 mcg/day in a month. This has to have prior authorization from his insurance company prior to starting. He is a candidate with recent admission, multiple episodes of exacerbations in the last few months. * continue Acapella valve; I lowered the setting to the lowest from the middle setting, as he could not exhale a full breath without turning red in the face and straining. (2) COPD exacerbation: Code(s): J44.1 - Chronic obstructive pulmonary disease with (acute) exacerbation Status: Acute Assessment and Plan: probably had COPD exacerbation; may be a good candidate for Daliresp (roflumilast) for COPD (3) Pulmonary hypertension: Code(s): I27.20 - Pulmonary hypertension, unspecified Status: Acute Assessment and Plan: Moderate pulmonary hypertension, RVSP 54 mm Hg; has COPD, hypoxemia, may have component of sleep issues and will need to have ApneaLink while here to make sure that his current 3 L/min with sleep is sufficient. He says that he does not snore, keeps same hours as he did while h
--- NOTE | 2020-08-24 15:39 | PM.PNCARD ---
Progress Note: A&P Assessment and Plan (1) Elevated troponin: Code(s): R77.8 - Other specified abnormalities of plasma proteins Status: Acute Assessment and Plan: Nonobstructive CAD., nonischemic cardiomyopathy on left heart catheterization yesterday. No complications post procedure. Post catheterization precautions. -ASA 81mg daily, statin for CAD. (2) Tachycardia: Code(s): R00.0 - Tachycardia, unspecified Status: Acute Assessment and Plan: Stable, resolved. (3) Chronic respiratory failure with hypoxia, on home oxygen therapy: Code(s): J96.11 - Chronic respiratory failure with hypoxia; Z99.81 - Dependence on supplemental oxygen Status: Acute Assessment and Plan: Pulmonology consultation appreciated (4) Community acquired pneumonia: Qualifiers: Laterality: unspecified laterality Qualified Code(s): J18.9 - Pneumonia, unspecified organism Code(s): J18.9 - Pneumonia, unspecified organism Status: Acute Assessment and Plan: On antibiotics (5) Hypertension: Qualifiers: Hypertension type: unspecified Qualified Code(s): I10 - Essential (primary) hypertension Code(s): I10 - Essential (primary) hypertension Status: Acute Assessment and Plan: Generally above goal (6) Cardiomyopathy: Code(s): I42.9 - Cardiomyopathy, unspecified Status: Acute Assessment and Plan: Continue metoprolol. Continue lisinopril 5 mg daily, EF 35%. Change metoprolol tartrate to Toprol XL 50 mg in a.m.. Not in decompensated heart failure. (7) Pulmonary hypertension: Code(s): I27.20 - Pulmonary hypertension, unspecified Status: Acute Assessment and Plan: Moderate likely secondary to underlying lung disease appreciate pulmonology involvement. Subjective Date/time seen: Date of service: 08/24/20 15:39 Interval history: 79yo male with chronic respiratory failure and COPD here for acute respiratory failure and tachycardia nonischemic cardiomyopathy, nonobstructive CAD and left heart catheterization.. Left heart catheterization yesterday with nonobstructive CAD, EF 35%. Feels fairly well today. Shortness of breath has improved. No chest pain. No new issues overnight. Brief SVT episodes asymptomatic early this morning. No edema. Review of Systems Review of Systems: All systems reviewed & are unremarkable except as noted in HPI and below Constitutional: Constitutional: Reports fatigue, Denies headache(s) and Reports weakness Eyes: Eyes: Denies blurry vision ENT: Reports Normal hearing present, Denies headache(s), Denies lip swelling and Denies neck pain Cardiovascular: Cardiovascular: Denies chest pain, Denies leg edema and Reports dyspnea Respiratory: Respiratory: Reports cough and Reports dyspnea Gastrointestinal: Gastrointestinal: Denies abdominal pain Genitourinary: Genitourinary: Denies dysuria Musculoskeletal: Musculoskeletal: Denies back pain, Denies neck pain and Denies numbness Integumentary/Breasts: Skin/Breast: Denies dry skin and Denies unusual bruising Neurologic: Reports Normal hearing present, Reports confusion, Denies headache(s), Denies numbness and Reports weakness Psychiatric: Psychiatric: Reports confusion Endocrine: Endocrine: Reports fatigue Hematologic/Lymphatic: Hematologic/Lymphatic: Denies easy bleeding Allergic/Immunologic: Allergic/Immunologic: Denies GI upset with certain foods and Denies lip swelling Exam Narrative: Exam Narrative: Alert. Const: General: cooperative, comfortable, well developed, in distress, confusion and uncomfortable Orientation/consciousness: confusion HENMT: General nose exam: Normal nares present Eyes: Sclera: sclerae normal Neck: Neck: supple and no JVD Chest: Other: No reproducible chest wall pain to palpation Resp: Effort & Inspection: normal respiratory effort Auscultation: diminished lung sounds Car
[2020-08-24] MEDS: acetaZOLAMIDE SODIUM FOR INJ 500 MG VIAL IV PUSH (19:03)
[2020-08-24] MEDS: DORNASE ALFA INH SOLN 1 MG/ML 2.5 ML AMP 2.5 MG INHALATION (20:30)
[2020-08-25] VITALS (22 sets, daily range): BP systolic 110–143; BP diastolic 54–73; PULSE 67–100; RESP 16–24; TEMP 35.9–36.6; O2SAT 89–100
--- NOTE | 2020-08-25 03:11 | PC.NURSE ---
Daylight Savings Time For Daylight Savings Time Ending in the Fall - Clocks are moved back. For Daylight Savings Time Beginning in the Spring - Clocks are moved ahead. For [facility], the time of change occurs at 0200 hrs. Time is taken from the seismograph observer. This entry on the patient's chart recognizes the change in time reflected during documentation. Example: 2 entries for vital signs may be charted for 0200 hrs.
[2020-08-25 06:51] LABS: Alanine Aminotransferase 196 U/L (4-50); Albumin Level 3.1 g/dL (3.5-5.1); Alkaline Phosphatase 83 U/L (38-126); Anion Gap -4 mmol/L (8-16); Aspartate Amino Transferase 48 U/L (17-59); Bilirubin,Total 0.5 mg/dL (0.2-1.3); Blood Urea Nitrogen 28 mg/dL (9-20); Calcium 8.3 mg/dL (8.4-10.2); Carbon Dioxide 38 mmol/L (22-30); Chloride 104 mmol/L (98-107); Estimated CRCL calculation 58 ml/min; Estimated Glomerular Filt Rate > 60; Glucose 88 mg/dL (75-110); Potassium 4.4 mmol/L (3.4-5.0); Sodium 138 mmol/L (137-145)
[2020-08-25 06:52] LABS: Hematocrit 42.1 % (42.0-52.0); Hemoglobin 13.1 g/dL (14.0-18.0); Mean Corpuscular HGB Conc 31.1 g/dl (32-36); Mean Corpuscular Hemoglobin 30.8 pg (26-34); Mean Corpuscular Volume 98.8 fl (80-100); Mean Platelet Volume 11.6 fl (7.4-10.4); Platelet Count Result 180 k/mm3 (150-375); Red Blood Count 4.26 M/mm3 (4.6-6.20); Red Cell Distribution Width 12.7 % (11.5-14.5); White Blood Count 14.8 K/mm3 (4.5-10.0)
[2020-08-25] MEDS: predniSONE 40 MG, predniSONE 10 MG 50 MG PO (08:34)
[2020-08-25] MEDS: ATORVASTATIN 20 MG TABLET PO (08:35)
[2020-08-25] MEDS: ASPIRIN 81 MG ENTERIC TABLET PO (08:35)
[2020-08-25] MEDS: METOPROLOL SUCCINATE EXT REL 50 MG TABCR PO (08:36)
[2020-08-25] MEDS: LORATADINE 10 MG TABLET PO (08:36)
[2020-08-25] MEDS: guaiFENesin 12 HR 600 MG TABCR PO ×2 (08:36→20:17)
[2020-08-25] MEDS: lisinopriL 5 MG TABLET PO (08:36)
[2020-08-25] MEDS: MONTELUKAST SODIUM 10 MG TABLET PO (08:37)
[2020-08-25] MEDS: acetaZOLAMIDE SODIUM FOR INJ 500 MG VIAL IV PUSH (08:38)
[2020-08-25] MEDS: WATER, STERILE FOR INJECTION 10 ML VIAL XX (08:50)
[2020-08-25] MEDS: LEVALBUTEROL NEB 1.25 MG/3 ML 0.63 MG INHALATION ×3 (09:03→20:27)
[2020-08-25] MEDS: IPRATROPIUM BR 0.02% INH SOLN 0.5 MG/2.5 ML VIAL INHALATION ×3 (09:04→20:27)
[2020-08-25] MEDS: BUDESONIDE RESPULE NEB 0.5 MG/2 ML AMP INHALATION ×2 (09:04→20:28)
[2020-08-25] MEDS: DORNASE ALFA INH SOLN 1 MG/ML 2.5 ML AMP 2.5 MG INHALATION ×2 (09:07→20:28)
--- NOTE | 2020-08-25 10:45 | PM.IMPN ---
Progress Note: A&P Assessment and Plan (1) Tachycardia: Code(s): R00.0 - Tachycardia, unspecified Status: Acute Assessment and Plan: Patient has abrupt onset of increased heart rate 08/20.. metoprolol 5 mg iv given with control of his tachycarida. carddiolgy following. Heart rate stable at present. (2) Acute and chronic respiratory failure: Code(s): J96.20 - Acute and chronic respiratory failure, unspecified whether with hypoxia or hypercapnia Status: Acute Assessment and Plan: Patient with chronic respiratory failure on 3.5 L of oxygen. ABG with hypercapnia, remained on BIPAP. contineu at night and prn during daytime. Will continue current treatment. Increase activity as tolerated. (3) LV dysfunction: Code(s): I51.9 - Heart disease, unspecified Status: Acute Assessment and Plan: Echo showing EF 40-45%, diastolic dysfunction II, multiple elizondo are hypokinetic and moderate pulmonary HTN. Started on Diltiazen but consider changing to metoprolol if his respiratory status can tolerate. Resume lisinopril when able. May need ischemic evaluation at some time. planned for medical management. (4) Elevated troponin: Code(s): R77.8 - Other specified abnormalities of plasma proteins Status: Acute Assessment and Plan: Troponins elevated at the outside hospital. Probably related to the respiratory failure and the tachycardia than from acute plaque rupture. Echo showing akinetic apical septum and multiple areas of hypokinesis. Cardiology has been consulted. Continue aspirin. Check lipid panel. Lipitor has been added - monitor LFTs closely. (5) COPD exacerbation: Code(s): J44.1 - Chronic obstructive pulmonary disease with (acute) exacerbation Status: Acute Assessment and Plan: No wheezing currently. Continue Solu-Medrol. Continue nebulizer treatments. He is also on Pulmozyme. pulmonary consulted and await his evaluation. (6) Community acquired pneumonia: Qualifiers: Laterality: unspecified laterality Qualified Code(s): J18.9 - Pneumonia, unspecified organism Code(s): J18.9 - Pneumonia, unspecified organism Status: Acute Assessment and Plan: CXR 08/17/20 reviewed and showing patchy opacities of the mid and lower lung zones. White count was 21K on admission. With IV antibiotics, white count has trended downward. White count worsened but possibly related to the steroids. Blood cultures are no growth. Continue Rocephin and azithromycin for now. wbc stable today. (7) Hypertension: Qualifiers: Hypertension type: unspecified Qualified Code(s): I10 - Essential (primary) hypertension Code(s): I10 - Essential (primary) hypertension Status: Acute Assessment and Plan: montior. stable. (8) Elevated LFTs: Code(s): R79.89 - Other specified abnormal findings of blood chemistry Status: Acute Assessment and Plan: AST/ALT have been elevated off and on since admission. Could be hepatic congestion from the intermittent tachycardia or from the HoTN. Will proceed with workup. LFTs remains elevated. abdomen us unremarkable. (9) DVT prophylaxis: Code(s): Z29.9 - Encounter for prophylactic measures, unspecified Status: Acute Assessment and Plan: Lovenox Additional Plan Will start physical therapy and continue to monitor oxygen. Will discuss with Cardiology about the discharge plan. black ash worker evaluation for placement. Subjective Date/time seen: 08/25/20 10:45 Interval history: 79yo male with chronic respiratory failure and COPD here for acute respiratory failure and tachycardia. Had cardiac catheterization 2 days ago. 08/25/2020 Patient was seen during the morning the on today. Patient is doing slightly better today. Patient is requiring less BiPAP use. Patient denies any chest pain. Still has mild shortness of br
--- NOTE | 2020-08-25 18:24 | PM.PNPUL ---
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 His saturation is 95% on 3 L/min. I decreased this to 2 L/min with saturation maintained at 95%, so I discontinued O2. I waited at the bedside for 20 minutes, and O2 saturation is 90-91% at rest. The patient is worried, anxious, is not sure that he can breathe off O2. He says that he was told to go to the ER if his saturation is 94% or below. I am not sure if this is what his doctor said, or if he may not remember what he was told. His saturation needs to be maintained between 90-94% while using supplemental O2. He needs a Home O2 evaluation the day of discharge. For now, he can be on room air at rest, 2 L/min with exertion, and 2 L/min with sleep. His ApneaLink last night showed lowest saturation 97% on 3.5 L/min. Pror to admission, he had 2 courses of antibiotics in the 2 months prior to this admission; he presented with altered mental status, ABG pH 7.08/ pCO2 96/ pO2 160.9/ HCO3 28/ SpO2 98.6 which is acute hypercapnic and chronic hypoxemic respiratory failure; pCO2 95 with normal HCO3 28. pO2 was 160, so using O2 at 3-4 L/min at home was part of his problem. Higher amounts can worsen CO2 retention. He bought his own portable O2 concentrator a month or two ago, as he needed O2 in the day, but was not able to leave the house to be tested as his O2 level dropped. He decided to buy a concentrator so he could go get his COVID vaccines. His 2nd one is scheduled for this Aug 28. Over the first 6 days after admission, serum CO2 increased, on chemistry it was > 40, acetazolamide 500 mg IV given Aug 24 evening, and August 25, serum CO2 is 38, better. PLAN: * Decrease O2 to Room Air in , and 2 L/min with exertion and sleep. His ApneaLink 08/24 overnight = lowest saturation 97% on 3.5 L/min, so this is too high with sleep. *O2 testing prior to discharge, with use of the lowest amount of O2 that gets his saturation to 89% or above. * PFTs in 6-8 weeks f he has never had these. * cardiopulmonary rehab to increase quality of life; cannot walk any distance at all now. * I am not convinced that he had pneumonia. He had increased WBC 20.9, but no change in sputum. His CXR is consistent with pulmonary edema. He completed 6 days of ceftriaxone and azithromycin, stopped August 24yeer. He was on antibiotics at [facility] before admission here, and 2 rounds in Jun/Jul; ok to stop these IV and go to oral. * He has enlarged LV w LV hypokinesis, EF 40-45%, RVSP 54 mm Hg, TR, no obstructing lesions. On management for low EF per cardiology. * continue oral prednisone 50 mg at 8:00 am with food * review his home COPD meds; He was on Perforomist daily, budesonide daily, and both of these are twice a day meds; ipratropium and albuterol 3 times a day in his nebulizer. He says that ipratropium is the medication that helps the most. He was not using Perforomist and budesonide twice a day, so he is undertreated. The Perforomist is expensive. *Daliresp 250 mcg a day may be helpful, increasing to 500 mcg/day in a month. This has to have prior authorization from his insurance company prior to starting. He is a candidate with recent admission, multiple episodes of exacerbations in the last few months and increased daily sputum production. * continue Acapella valve; he is using this at the lowest setting which is more comfortable for him. (2) COPD exacerbation: Code(s): J44.1 - Chronic obstructive pulmonary disease with (acute) exacerbat
[2020-08-26] VITALS (17 sets, daily range): BP systolic 114–137; BP diastolic 52–70; PULSE 68–98; RESP 16–24; TEMP 36.1–36.3; O2SAT 86–98
[2020-08-26] MEDS: IPRATROPIUM BR 0.02% INH SOLN 0.5 MG/2.5 ML VIAL INHALATION ×3 (02:19→14:41)
[2020-08-26] MEDS: LEVALBUTEROL NEB 1.25 MG/3 ML 0.63 MG INHALATION ×3 (02:20→14:41)
[2020-08-26 06:02] LABS: Hematocrit 37.8 % (42.0-52.0); Hemoglobin 12.2 g/dL (14.0-18.0); Mean Corpuscular HGB Conc 32.3 g/dl (32-36); Mean Corpuscular Volume 95.9 fl (80-100); Mean Platelet Volume 11.5 fl (7.4-10.4); Platelet Count Result 168 k/mm3 (150-375); Red Blood Count 3.94 M/mm3 (4.6-6.20); Red Cell Distribution Width 12.5 % (11.5-14.5); White Blood Count 12.6 K/mm3 (4.5-10.0)
--- NOTE | 2020-08-26 07:56 | PC.NURSE ---
Dr. Hilliard notified of duplicate order of Diamox, one ordered as IVP and one ordered as a tablet. New order to d/c IVP Diamox
[2020-08-26] MEDS: BUDESONIDE RESPULE NEB 0.5 MG/2 ML AMP INHALATION (08:23)
[2020-08-26] MEDS: DORNASE ALFA INH SOLN 1 MG/ML 2.5 ML AMP 2.5 MG INHALATION (08:23)
[2020-08-26] MEDS: guaiFENesin 12 HR 600 MG TABCR PO (09:09)
[2020-08-26] MEDS: acetaZOLAMIDE TAB 250 MG TABLET PO (09:09)
[2020-08-26] MEDS: AMOXICILLIN/CLAVULANATE K 500-125 MG TAB 1 TABLET PO ×3 (09:09→16:18)
[2020-08-26] MEDS: lisinopriL 5 MG TABLET PO (09:09)
[2020-08-26] MEDS: ASPIRIN 81 MG ENTERIC TABLET PO (09:09)
[2020-08-26] MEDS: ATORVASTATIN 20 MG TABLET PO (09:10)
[2020-08-26] MEDS: LORATADINE 10 MG TABLET PO (09:11)
[2020-08-26] MEDS: predniSONE 40 MG, predniSONE 10 MG 50 MG PO (09:11)
[2020-08-26] MEDS: MONTELUKAST SODIUM 10 MG TABLET PO (09:11)
[2020-08-26] MEDS: polyethylene glycoL 3350 17 GM POWD.PACK PO (09:11)
[2020-08-26] MEDS: METOPROLOL SUCCINATE EXT REL 50 MG TABCR PO (09:11)
--- NOTE | 2020-08-26 10:42 | PCNWS ---
Weekly nutritional screen. Patient is tolerating current diet with adequate intake. He is taking Ensure Enlive providing him with an additional 350 calories and 20 grams of protein. No weight loss reported. No nutritional needs at this time.
--- NOTE | 2020-08-26 10:44 | HOMEO2EVAL ---
Home Oxygen Evaluation RC: Home Oxygen (O2) Evaluation Start: 08/25/20 19:30 Freq: ONCE Status: Active Protocol: RPE Activity Type Activity Date Activity User E-Sign Co-Sign Detail Recorded Client Recorded Date Recorded By Document 08/26/20 10:02 KRM [email or web address] 08/26/20 10:44 KRM Document 08/26/20 10:04 KRM [email or web address] 08/26/20 10:44 KRM Document 08/26/20 10:06 KRM [email or web address] 08/26/20 10:44 KRM Document 08/26/20 10:06 KRM [email or web address] 08/26/20 10:44 KRM 08/26/20 08/26/20 08/26/20 10:02 10:04 10:06 Home O2 Evaluation Test Phase Resting Exercise Exercise Oxygen Delivery Room Air Room Air Nasal Cannula Oxygen Flow Rate (L/min) 1 Pulse Oximetry (90-100 %) 92 86 L 89 L Pulse Rate (60-100 beats/min) 90 89 90 Activity Tolerance Fair Fair Ambulation Distance (feet) Home Oxygen Evaluation Comments Treatment Charges O2 Evaluation - Inpatient 08/26/20 10:06 Home O2 Evaluation Test Phase Exercise Oxygen Delivery Nasal Cannula Oxygen Flow Rate (L/min) 2 Pulse Oximetry (90-100 %) 90 Pulse Rate (60-100 beats/min) 95 Activity Tolerance Fair Ambulation Distance (feet) 40 Home Oxygen Evaluation Comments 2lpm with activity. Treatment Charges
--- NOTE | 2020-08-26 10:58 | PCRCNOTE ---
HOME O2 EVALUATION COMPLETE. PT. ALREADY HAS HOME O2 AT HOME. NEEDS WILL NOT CHANGE PER DR. JOHN RECOMMENDATION. ROOM AIR AT REST AND 2LPM WITH ACTIVITY.
--- NOTE | 2020-08-26 11:40 | PCNSR ---
On 08/26/20, the student, Vickie Maddox, provided care and completed [facility] documentation on this patient. I have reviewed the student's documentation and agree with the findings.
--- NOTE | 2020-08-26 14:16 | PM.DS ---
DS: Admitting Diagnosis Admitting Diagnosis Admitting Diagnosis: Chief Complaint: Elevated troponin, reported new onset atrial fibrillation. DS: Discharge Diagnosis Discharge Diagnosis (1) Hypertension: Qualifiers: Hypertension type: unspecified Qualified Code(s): I10 - Essential (primary) hypertension Code(s): I10 - Essential (primary) hypertension Status: Acute (2) COPD exacerbation: Code(s): J44.1 - Chronic obstructive pulmonary disease with (acute) exacerbation Status: Acute (3) Tachycardia: Code(s): R00.0 - Tachycardia, unspecified Status: Acute DS: Summary Hospital Course Reason for hospitalization: Chief Complaint: Elevated troponin, reported new onset atrial fibrillation. Narrative: This is a very pleasant 79-year-old male, a former heavy smoker, with COPD and chronic respiratory failure on home oxygen who is being directly admitted to the IMU from the medical floor at the [facility] for further evaluation of elevated troponins and reported new onset of atrial fibrillation. The patient has pretty significant COPD and over the last couple of months it is to the point where he can barely walk 10 feet without getting short of breath although tells me he was walking up to half a mile a day just last summer. He has been treated with several rounds of antibiotics and steroids which tend to help for a period of time however his symptoms worsen shortly after finishing those prescriptions. More recently he notes an increase in cough and sputum production, describing thick yellow phlegm, as well as dyspnea on lesser and lesser exertion. He feels a bit better for maybe 2 hours after his nebulizers before becoming extremely short of breath again. He presented to the emergency department in [place] on the evening of 08/17/2020 in what sounds like respiratory extremis. At that time he was given a nebulizer, magnesium, and was started on IV steroids. While in the emergency department he became less and less responsive and a subsequent ABG demonstrated pH of 7.08, pCO2 of 96, PO2 of 160.9, and bicarb of 28.0. He was placed on a BiPAP and admitted to the floor with a working diagnosis of pneumonia and COPD exacerbation. There he reportedly developed atrial fibrillation/flutter with rapid ventricular response and his rate did improve somewhat with Cardizem drip however that was discontinued due to hypotension. He has had no chest discomfort but troponins were drawn and were markedly elevated, prompting transfer to this facility for cardiology evaluation. At the time my evaluation he is sitting up in bed in his much more comfortable than he has been the past couple of days. He reports that his breathing seems to be at baseline. The patient has no history of coronary disease and has not had exertional chest pain, however he is not able to exert himself due to his shortness of breath. He has been tachycardic and is only mildly aware of such. No pleuritic pain or palpitations. He denies lower extremity edema, calf pain and tenderness. He has frequent hot flashes and sweats with increased work of breathing, but has not had an overt fever. No nausea or vomiting. He has no history of sleep apnea or concerns for such. He has frequent sinus issues in postnasal drip which are unchanged. No exposure to those positive for COVID-19 in fact he had a negative rapid COVID test at the outside facility. Hospital Course: Patient is 80 y/o with long hx of smoking and now with COPD, chronic respiratory failure on home oxygen, seen by Dr. Hilliard and adjusted his medications, and he is clinically stable, also patient nonischemic cardiomyopathy with EF of 35 and seen by accounts payable clerk started on metoprolol and chage to Toprol XL as patient does not decompensated heart, he is clinically stable will discharge home today. Status at Discharge Functional status at discharge: uses cane/walker Overall status at discharge
== END 2020-08-26 17:15 | disposition home health service (06) | DRG 190 ==
PROVIDERS: Internal Medicine; Internal Medicine Cardiovascular Disease; Physician Assistant; Specialist; Admitting Provider Internal Medicine; PCP Family Medicine; Visit Provider Internal Medicine
PROC: 4A023N7 Measurement of Cardiac Sampling and Pressure, Left Heart, Percutaneous Approach (ICD-10-PCS; CPT 93452; principal; 2020-08-23 11:00)
DX: J44.1 Chronic obstructive pulmonary disease with (acute) exacerbation (principal); J18.9 Pneumonia, unspecified organism; J96.20 Acute and chronic respiratory failure, unspecified whether with hypoxia or hypercapnia; E87.4 Mixed disorder of acid-base balance; I10 Essential (primary) hypertension; Z87.891 Personal history of nicotine dependence; Z99.81 Dependence on supplemental oxygen; I27.20 Pulmonary hypertension, unspecified; I25.10 Atherosclerotic heart disease of native coronary artery without angina pectoris; R00.0 Tachycardia, unspecified
CPT/HCPCS: 36415; 36600; 71046; 76705; 80048; 80053; 80061; 80074; 82375; 82607; 82728; 82746; 82805; 83036; 83050; 83540; 83550; 83735; 83880; 84100; 84443; 84484; 85025; 85027; 92610; 93005; 93306; 93458; 94002; 94003; 94618; 94640; 94660; 94668; 94762; 97110; 97116; 97161; 97165; 97530; 97535; A9270; C1887; C1894; J0456; J0696; J1120; J1644; J1650; J1940; J2250; J2920; J3010; J7030; J7040; J7512

== ENCOUNTER 2020-10-08 21:58 | Emergency (ER) | payer MEDICARE, SELFPAY ==
--- NOTE | ~2020-10-08 | XR_ITS ---
EXAMINATION: XR chest 1V portable DATE: 10/08/2020 22:22 INDICATION: COPD presenting with dyspnea. TECHNIQUE: frontal view of the chest was obtained. COMPARISON: Chest radiograph dated 08/22/2020 FINDINGS: Hyperexpansion of lungs with increased lucency and architectural distortion in the upper lung zones c onsistent with given history of COPD. Again seen is an increased interstitial pattern and peripheral Anali B-lines in the bilateral mid and lower lung zones consistent with mild pulmonary edema. No ple ural effusion or pneumothorax. The cardiomediastinal silhouette is normal. Mild thoracic spondylosis. IMPRESSION: 1. Bilateral increased interstitial pattern most likely mild pulmonary edema with differential includ ing less likely pneumonia or chronic interstitial lung disease. 2. Emphysema. Reviewed, dictated and finalized at location A. IMPRESSION: 1. Bilateral increased interstitial pattern most likely mild pulmonary edema wi th differential including less likely pneumonia or chronic interstitial lung di sease. 2. Emphysema.
[2020-10-08 21:58] VITALS: BP 148/88; PULSE 137; RESP 36; TEMP 35.6; O2SAT 98
--- NOTE | 2020-10-08 22:03 | ED.SOB ---
HPI - SOB/Dyspnea General Chief Complaint: Shortness of Breath/Dyspnea Stated Complaint: AMB Time Seen by Provider: 10/08/20 22:02 Source: patient and RN notes reviewed Mode of arrival: EMS Limitations: no limitations History of Present Illness MD elicited complaint: shortness of breath Pertinent past history: COPD Onset (ago): hour(s) (12) Context: other (Hot in the house ) Timing: constant Severity: similar to previous episodes Exacerbating factors: lying flat, movement and warm air Relieving factors: nothing Known history of: COPD Associated symptoms: denies other symptoms Treatment prior to arrival: bronchodilator (Albuterol neb by EMS) and other (Solumedrol 125mg by EMS) Related Data Home oxygen amount: 2 liters Home Medications Medication Instructions Recorded Confirmed guaifenesin 600 mg tablet, 600 mg PO BID 08/16/20 10/09/20 extended release 12 hr montelukast 10 mg PO DAILY PRN 08/17/20 10/09/20 tiotropium bromide [Spiriva 1 inh INHALATION DAILY 10/09/20 10/09/20 Respimat] Allergies Allergy/AdvReac Type Severity Reaction Status Date / Time No Known Allergies Allergy Mild Verified 09/18/20 11:58 Review of Systems Review of Systems: All systems reviewed & are unremarkable except as noted in HPI and below Constitutional: Constitutional: Denies chills and Denies fever(s) Cardiovascular: Cardiovascular: Denies chest pain, Denies rapid heart rate and Denies radiating jaw, neck or arm pain Gastrointestinal: Gastrointestinal: Denies diarrhea, Denies nausea and Denies vomiting PMF Past Medical History Medical History (Updated 10/09/20 @ 04:49 by aTnia Samaniego NP) Allergic rhinitis Bronchitis CHF (congestive heart failure), NYHA class I EF of 35% Chronic obstructive pulmonary disease Chronic respiratory failure with hypoxia, on home oxygen therapy On 2 liters nasal cannula. 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 Hyperlipidemia Hypertension Prediabetes Pulmonary hypertension Surgical History Surgical History (Updated 10/09/20 @ 04:49 by Tania Samaniego NP) Amputation of right little finger H/O cardiac catheterization August of this year History of bilateral cataract extraction Family History Family History Father Emphysema of lung Mother Heart disease Sibling COPD (chronic obstructive pulmonary disease) Mother Acute myocardial infarction Father Emphysema of lung Sibling Myocardial infarct Sibling Myocardial infarct Sibling Myocardial infarct Social History Social History (Updated 10/09/20 @ 04:50 by Tania Samaniego NP) Social History: The patient is a former smoker he quit at the age of 50. He lives with his who is a durable power transactional attorney for healthcare. Patient is a DNR. He has 2 children. No alcohol or illicit drugs. 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 Smoking packs per day: 2 Smoking cigarettes per day: 40.0 Years smoked: 40 Smoking pack-years: 80.00 Smoking status: Former smoker Tobacco type: cigarettes Second hand tobacco smoke exposure: No Additional smoking assessment comments: Patient quit smoking at age 50. Alcohol intake: never Drinks per week: 1 Substance use: never Substance use type: does not use Additional living arrangements comments: The patient lives in [place] with his . 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 Gender identity (if verbalized by the patient): Male Spiritual care concerns: No Exam Const: General: alert, acute distress moderate and respiratory and ill appearing acutely Nutritional Appearance: thin Orientation/consciousness: patient oriented x3 Limitations: no limitations HENMT: Head: normal to inspection Ears: external ears normal Face and sin
[2020-10-08 22:10] VITALS: PULSE 143; RESP 26; O2SAT 89
[2020-10-08] MEDS: IPRATROPIUM 0.5 MG/ALBUTEROL SULFATE 2.5 MG AMPUL.NEB 3 ML INHALATION (22:10)
[2020-10-08 22:17] VITALS: PULSE 141; RESP 26; O2SAT 100
--- NOTE | 2020-10-08 22:19 | ECG_ITS ---
Measurements Intervals [place] Rate: 137 P: 81 MI: 104 QRS: 256 QRSD: 145 T: 78 QT: 314 QTc: 476 Interpretive Statements SINUS OR ECTOPIC ATRIAL TACHYCARDIA RIGHT AXIS DEVIATION RIGHT BUNDLE BRANCH BLOCK ST ELEVATION IN INFERIOR LEADS- CONSIDER ACUTE INFARCT BASELINE ARTIFACT- I, II, III, AVL, AVF, V1-V3 ABNORMAL ECG Electronically Signed On 10-09-2020 7:20:53 CDT by Otis Tejada D.O.
[2020-10-08 22:23] LABS: Hematocrit 47.4 % (37.0-46.0); Hemoglobin 14.8 g/dL (12.4-15.3); Mean Corpuscular HGB Conc 31.2 g/dL (32.0-36.0); Mean Corpuscular Hemoglobin 30.6 pg (27.0-31.0); Mean Corpuscular Volume 97.9 fL (78.0-102.0); Platelet Count Result 237 K/mm3 (150-420); Red Blood Count 4.84 M/mm3 (4.70-6.10); Red Cell Distribution Width 12.8 % (11.6-14.4)
[2020-10-08 22:34] LABS: White Blood Count 24.9 K/mm3 (4.8-10.8)
[2020-10-08 22:35] VITALS: PULSE 136
[2020-10-08 22:44] LABS: Alanine Aminotransferase 80 U/L (16-63); Albumin Level 3.6 g/dL (3.4-5.0); Alkaline Phosphatase 130 U/L (46-116); Anion Gap 6 mmol/L (8-16); Aspartate Amino Transferase 71 U/L (15-37); Bilirubin,Total 0.4 mg/dL (0.00-1.00); Blood Urea Nitrogen 18 mg/dL (7-18); Calcium 9.4 mg/dL (8.5-10.1); Carbon Dioxide 31 mmol/L (21-32); Chloride 105 mmol/L (98-108); Estimated Glomerular Filt Rate 57; Glucose 287 mg/dL (70-99); Magnesium 2.6 mg/dL (1.8-2.4); NT Pro B Type Natriuretic Pept 366 pg/mL (0-450); Osmolality Calculated 305 mOsm/kg (285-295); Potassium 4.5 mmol/L (3.5-5.1); Sodium 142 mmol/L (136-145); Total Protein 7.1 g/dL (6.4-8.2)
[2020-10-08 22:47] LABS: HCO3 ABG 29.2 mmol/L (23-29); Oxygen Content ABG 19.4 %vol (16.0-22.0); Oxygen Saturation ABG 88.2 % (95-97); Oxyhemoglobin 87.5 % (94-100); PCO2 ABG 81.8 mmHg (35-45); PO2 ABG 66.3 mmHg (75-85); Total Hemoglobin 15.8 g/dL; pH ABG 7.17 (7.35-7.45)
--- NOTE | 2020-10-08 22:47 | PC.NURSE ---
2240 PT CONTINUES GASPING FOR AIR, PT STATES PLEASE HELP ME . ERP NOTIFIED OF ELEVATED WBC AND BREATHING STATUS. ORDER FOR BIPAP PLACED. RESP TECHELA, HERE AND AWARE. 2245 PT ON BIPAP ORDERED.
[2020-10-08 22:49] VITALS: BP 126/72; PULSE 127; RESP 24; RESP 27; TEMP 35.6; O2SAT 100
[2020-10-08 22:49] LABS: Device NASAL CANNULA; Modified Allen's Test Pass; Site Drawn LEFT RADIAL
[2020-10-08 22:51] LABS: Lactic Acid Reflex 3.6 mmol/L (0.4-2.0)
[2020-10-08] MEDS: LACTATED RINGERS 1,000 ML 999 ML IV CONT (22:59)
--- NOTE | 2020-10-08 23:16 | PC.NURSE ---
CALL TO [facility] FOR TRANSFER PER PT AND REQUEST. DR SAUNDERS , [employer] PERSON IS THERE. AWAITING CALL BACK
[2020-10-08 23:29] LABS: Neutrophils Percent Manual 41 % (46-73); Total Cells Counted 100
[2020-10-08 23:30] LABS: Atypical Lymphocytes Present; Band Neutrophils Percent 0 % (0-6); Basophils Percent Manual 0 % (0-1); Eosinophils Absolute Manual 2.73 K/mm3 (0.02-0.5); Eosinophils Percent Manual 11 % (1-6); Lymphocytes Percent Manual 43 % (18-44); Monocytes Absolute Manual 1.24 K/mm3 (0.1-0.90); Monocytes Percent Manual 5 % (3-9); Platelet Estimate Adequate (Adequate)
[2020-10-09 00:27] VITALS: BP 112/78; PULSE 109; RESP 20; TEMP 36.6; O2SAT 100
--- NOTE | 2020-10-09 00:48 | PC.NURSE ---
REPORT TO [facility] STAFF. PT SWITCHED TO CPAP FOR TRANSPORT PER DR OWENS. PT LOADED TO COT. ALERT AND STABLE, TALKING.
--- NOTE | 2020-10-09 00:51 | PC.NURSE ---
MONIKA RN AT RAPHINE NOTIFIED OF PT BRANNONTE.
[2020-10-09 02:27] LABS: Reflex Lactic Acid Yes or No Add Lactic
== END 2020-10-09 00:52 | disposition short-term general hospital (02) ==
PROVIDERS: Emergency Provider Emergency Medicine
DX: R06.03 Acute respiratory distress (principal); J44.1 Chronic obstructive pulmonary disease with (acute) exacerbation; R00.0 Tachycardia, unspecified; I50.9 Heart failure, unspecified; I10 Essential (primary) hypertension; E78.5 Hyperlipidemia, unspecified; Z87.891 Personal history of nicotine dependence
CPT/HCPCS: 36415; 36600; 71045; 80053; 82805; 83605; 83735; 83880; 85025; 87040; 93005; 94640; 96361; 96365; 99285; J0696; J7120

== ENCOUNTER 2020-10-09 00:21 | Inpatient (IN) | payer MEDICARE, SELFPAY ==
[2020-10-09] VITALS (28 sets, daily range): BP systolic 91–112; BP diastolic 52–62; PULSE 84–124; RESP 14–38; TEMP 35.7–36.4; O2SAT 92–99; BMI 20.4; BMI 19.5
--- NOTE | ~2020-10-09 | CT_ITS ---
EXAMINATION:CT diagnostic chest wo con DATE: 10/10/2020 14:23 INDICATION: Cough. Shortness of breath. TECHNIQUE: Computed tomography (CT) of the chest was performed without intravenous contrast. Automate d exposure control and iterative reconstruction technique were employed. The dose-length product (DLP ) was 154.02 mGy-cm. COMPARISON: chest two views 08/22/20 FINDINGS: There is severe emphysema. There is a 9 mm nodule at right major fissure. There is a 7 mm n odule in left lower lobe. There are a few other scattered nodules measuring up to 6 mm. No pleural ef fusion. The heart size is normal. There are coronary artery calcifications. No pericardial effusion. There is mild thoracic spondylosis. There are mild chronic compression fractures at multiple levels. IMPRESSION: 1. Severe emphysema. 2. Pulmonary nodules measuring up to 9 mm, probably benign. Consider noncontrast, low-dose chest CT i n 6 months. Reviewed, dictated and finalized at location A. IMPRESSION: 1. Severe emphysema. 2. Pulmonary nodules measuring up to 9 mm, probably benign. Consider noncontras t, low-dose chest CT in 6 months.
--- NOTE | ~2020-10-09 | XR_ITS ---
EXAMINATION: XR chest 1V portable DATE: 10/10/2020 05:37 INDICATION: Chronic obstructive pulmonary disease. TECHNIQUE: A single frontal view of the chest was obtained on 2 radiographs. COMPARISON: Chest single view 10/08/2020 FINDINGS: There is mild scarring at right lung apex. No pleural effusion or pneumothorax. The heart s ize is normal. IMPRESSION: 1. Mild scarring at right lung apex. Reviewed, dictated and finalized at location A.
--- NOTE | 2020-10-09 04:32 | PC.NURSE ---
This patient to be transferred from [facility] to [facility] IMU room 213, this nurse to resume care.
--- NOTE | 2020-10-09 04:34 | PC.NURSE ---
Anton initiated call to this nurse at 1213 a.m., report was given by REGINA Cespedes. Patient to travel by EMS to this facility.
--- NOTE | 2020-10-09 04:36 | ADMGEN ---
This patient, Camden Herrera, was admitted to IMU Room 213-[address] [facility] via EMS transport. Patient/family oriented to hospital policies and general routines including ID bracelet, bed and alarms, visiting hours, pain management, procedures, bathroom and other care routines, personal items, smoking policy, room service/diet, and visiting hours. Information on how to activate the Rapid Response Team has been discussed. Patient/Family are encouraged to report perceived risks to care and to ask questions if they do not understand what they are told or what they should do.
--- NOTE | 2020-10-09 04:40 | PM.IMHP ---
H&P: HPI History of Present Illness Date/Time: 10/09/20 04:40 this is an 80-year-old male patient who has a history of COPD and is seen by Dr. Harden in his office. It looks like the patient was just recently stab least with that office. The patient desires to be a DNR and does not want to be intubated. The patient was just discharged from this hospital on on 08/26/2020 the patient had an elevated troponin at that time. He was seen by Cardiology. The patient was diagnosed with nonobstructive coronary artery disease nonischemic cardiomyopathy on left heart catheterization. He was started on aspirin and a statin. He also had tachycardia at that time which was resolved. He does have chronic respiratory failure and is on 2 L per nasal cannula at all times. The patient does not have any history of having obstructive sleep apnea. Patient was treated for pneumonia at that time. Patient's ejection fraction was 35%. The patient had a rapid negative COVID his last admission. The patient had been complaining of having shortness of breath and went to [facility]. The patient was a direct admission from Dr. Fuchs at [facility]. 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 The patient had been started on a BiPAP at [facility] with settings of 15/8 with a rate of 12 and FiO2 of 30%. The patient appeared to be tolerating this well. 7.17. CO2 was 81.8. PO2 66.3. Bicarb 29.2 O2 saturation 88.2% the patient was awake and talkative. The patient again reiterated that he is a DNR. He will allow the BiPAP but will not allow intubation. The patient was given nebulizer treatments and started on Solu-Medrol. Chest x-ray at [facility] was read as bilateral increased interstitial pattern most likely mild pulmonary edema with differential including least likely pneumonia or chronic interstitial lung disease and emphysema. The patient was empirically started on antibiotics because he had an elevated white count of 24.9. Blood cultures are pending. The patient is being admitted to inpatient services on the date of service of 10/09/2020. Chief Complaint: Dyspnea Review of Systems Review of Systems: All systems reviewed & are unremarkable except as noted in HPI and below Constitutional: Constitutional: Reports as per HPI and Reports no additional constitutional complaints Eyes: Eyes: Reports as per HPI and Reports no additional eye complaints ENT: Reports system reviewed and no additional complaints, except as documented and Reports Normal hearing present Cardiovascular: Cardiovascular: Reports no additional cardiovascular complaints Respiratory: Respiratory: Reports no additional respiratory complaints and Reports no additional respiratory complaints Gastrointestinal: Gastrointestinal: Reports as per HPI and Reports no additional gastrointestinal complaints Musculoskeletal: Musculoskeletal: Reports no additional musculoskeletal complaints Integumentary/Breasts: Skin/Breast: Reports system reviewed and no additional complaints, except as docu and Reports as per HPI Neurologic: Reports system reviewed and no additional complaints, except as documented, Reports as per HPI and Reports Normal hearing present Psychiatric: Psychiatric: Reports no additional psychiatric complaints and Reports as per HPI Endocrine: Endocrine: Reports no additional endocrine complaints Hematologic/Lymphatic: Hematologic/Lymphatic: Reports no additional hematologic/lymphatic complaints Allergic/Immunologic: Allergic/Immunologic: Reports no additional allergic/immunologic complaints [facility] Past Medical History Medical History (Updated 10/09/20 @ 04:49 by Tania Samaniego NP) Allergic rhinitis Bronchitis CHF (congestive heart failure), NYHA class I EF of 35% Chronic obstructive pulmonary disease Chronic respiratory failure with hypoxia, on home oxygen therapy On 2 liters nasal cannula. COPD (chronic obstructive pulmonary dis
[2020-10-09 05:06] LABS: Basophils Percent Auto 0.2 % (0.2-1.2); Eosinophils Percent Auto 0.3 % (0-4.4); Hematocrit 40.5 % (42.0-52.0); Hemoglobin 12.9 g/dL (14.0-18.0); Immature Granulocyte Absolute 0.06 K/mm3 (0.00-0.031); Immature Granulocyte Percent A 0.5 % (0-0.5); Lymphocytes Absolute Auto 0.61 K/mm3 (0.9-3.2); Lymphocytes Percent Auto 5.3 % (18.3-44.2); Mean Corpuscular HGB Conc 31.9 g/dl (32-36); Mean Corpuscular Hemoglobin 30.2 pg (26-34); Mean Corpuscular Volume 94.8 fl (80-100); Monocytes Absolute Auto 0.4 K/mm3 (0.1-0.6); Monocytes Percent Auto 3.7 % (2.6-8.5); Neutrophils Absolute Auto 10.4 K/mm3 (1.3-6.7); Platelet Count Result 164 k/mm3 (150-375); Red Blood Count 4.27 M/mm3 (4.6-6.20); Red Cell Distribution Width 13.1 % (11.5-14.5); White Blood Count 11.5 K/mm3 (4.5-10.0)
[2020-10-09 05:21] LABS: Alanine Aminotransferase 91 U/L (4-50); Albumin Level 3.5 g/dL (3.5-5.1); Alkaline Phosphatase 72 U/L (38-126); Anion Gap -1 mmol/L (8-16); Aspartate Amino Transferase 76 U/L (17-59); Bilirubin,Total 0.3 mg/dL (0.2-1.3); Blood Urea Nitrogen 21 mg/dL (9-20); Calcium 8.5 mg/dL (8.4-10.2); Carbon Dioxide 33 mmol/L (22-30); Chloride 104 mmol/L (98-107); Estimated Glomerular Filt Rate > 60; Glucose 210 mg/dL (75-110); Potassium 5.5 mmol/L (3.4-5.0); Sodium 136 mmol/L (137-145)
[2020-10-09 05:22] LABS: Lactic Acid Reflex 1.3 mmol/L (0.7-2.1)
[2020-10-09 05:31] LABS: Base Excess ABG 1.7 mEq/l (+/-2.0); HCO3 ABG 28.2 mEq/l (22.0-26.0); Oxygen Saturation ABG 98.2 % (95.0-100.0); PCO2 ABG 52.1 mmHg (35.0-45.0); PO2 ABG 120.6 mmHg (80.0-100.0); Total Hemoglobin 14.2 g/dL (12.0-18.0); pH ABG 7.352 (7.350-7.450)
[2020-10-09 05:32] LABS: Alveolar/Arterial O2 Gradient 32.1 mmHg; Carboxyhemoglobin 0.3 % THb (0-2.0); Device NON-INVASIVE VENT; Fractional Inspired Oxygen 30 %; Methemoglobin ABG 0.4 %THb (0-1.5); Oxygen Content ABG 19.5 %vol (16.0-22.0); Oxyhemoglobin 97.1 % THb (90.0-100.0); PO2 FiO2 Ratio Arterial Blood 4.02 %; Reduced Hemoglobin 2.2 %THb (0-5.0); Site Drawn RIGHT BRACHIAL
[2020-10-09 05:33] LABS: Non-Invasive Expiratory Pressure 8 CMH2O; Non-Invasive Inspiratory Pressure 15 CMH2O; Non-Invasive Vent Rate 12 /MIN
[2020-10-09] MEDS: methylPREDNISolone SOD SUCC 125 MG VIAL 60 MG IV PUSH (05:36)
[2020-10-09 07:48] LABS: Glucose Point of Care 141 (65-105)
[2020-10-09] MEDS: IPRATROPIUM BR 0.02% INH SOLN 0.5 MG/2.5 ML VIAL INHALATION ×3 (07:51→20:10)
[2020-10-09] MEDS: guaiFENesin 12 HR 600 MG TABCR PO ×2 (08:49→20:01)
[2020-10-09] MEDS: ATORVASTATIN 20 MG TABLET PO (08:49)
[2020-10-09] MEDS: ASPIRIN 81 MG ENTERIC TABLET PO (08:49)
--- NOTE | 2020-10-09 09:23 | PM.CNPUL ---
Assessment and Plan Assessment and plan (1) COPD exacerbation: Code(s): J44.1 - Chronic obstructive pulmonary disease with (acute) exacerbation Status: Acute Assessment and Plan: Patient carries a diagnosis of COPD and has hyperinflation on his chest x-ray. I have no PFTs at this time. Patient currently with a COPD exacerbation with increased shortness of breath worsening hypercarbia and hypoxemia. I will continue his Solu-Medrol and decrease the dose to 40 mg IV q.6 hours. I will continue ipratropium 0.5 mg nebulizers Q 6 hours and continue his leave albuterol at 0.63 mg q.6 hours nebulized. patient has chronic respiratory failure from his COPD with an elevated carbon dioxide level of 82 and an elevated serum bicarbonate level of 33. Patient was tried on BiPAP last night with improvement in his blood gas but he is unable to tolerate because the breath is uncomfortable for him. He would benefit from a noninvasive ventilator to prevent future decompensation from his severe COPD. I will initiate noninvasive ventilation tonight with an AVAPS mode of ventilation. (2) Acute respiratory failure with hypoxia and hypercarbia: Code(s): J96.01 - Acute respiratory failure with hypoxia; J96.02 - Acute respiratory failure with hypercapnia Status: Acute Assessment and Plan: patient had previously required 2 L nasal cannula oxygen at night and currently he is on room air with saturations 93-94%. Patient has hypercarbic respiratory failure with a blood gas of 7.17/82/66 that improved on BiPAP 15/8 to 7.35/52/120. I will initiate APAP mode of ventilation with a backup rate of 16, tidal volume 450, E Pap 5, minimal IPAP 6, maximal IPAP 25, 30% FIO2. Will check a blood gas in the morning to assess ventilation with the settings. I have discussed with the conference services coordinator regarding qualifications for home noninvasive ventilator. Will follow with you. History of Present Illness History of Present Illness Consult date: 10/09/20 Requesting physician: Tania Samaniego NP Reason for consult: COPD Chief complaint: COPD exacerbation, hypoxia, hypercapnea Narrative: This is a new pulmonary consult for COPD with hypercarbic respiratory failure. This is an 80-year-old man with a history of COPD on 2 l oxygen at night, nonischemic cardiomyopathy, atrial fibrillation with RVR, who is followed in our Pulmonary Clinic. I saw the patient once on 09/18/2020 and at that time he had continued symptoms with a CAT score of 17 and I changed him to nebulized long-acting beta agonist, I added Spiriva Respimat and continued his leave albuterol nebulizers p.r.n.. I ordered PFTs, resting ABG, overnight oximetry on 2 L, home O2 assessment and a CT to screen for lung cancer. None of that testing had been performed. Patient had called the office stating that He had worsening shortness of breath in a.m. tempted to increase the frequency of his leave albuterol. Patient continued to develop shortness of breath and presented to [facility] in respiratory distress with a blood gas of 7.17/82/66. patient had a chest x-ray that demonstrated increased bilateral interstitial infiltrates with mild congestion and hyperinflation. Patient was started on ceftriaxone, azithromycin, ipratropium nebulizers and leave albuterol nebulizers and transferred to [facility] on BiPAP. Of note patient states that he is do not resuscitate but that he is okay with BiPAP. 10/09 Patient wore the BiPAP overnight but said that it was uncomfortable in that it hurt his face and the air was not blowing in properly. Patient is currently off the BiPAP on room air with saturations 93-94%. Patient states that he is better today and he denies any phlegm production or hemoptysis. His white blood cell count has improved from 24.9-11.5. Review of Systems Review of Systems: All systems reviewed & are unremarkable except as noted in HPI and below Eyes: Eye
[2020-10-09 12:18] LABS: Glucose Point of Care 209 (65-105)
[2020-10-09] MEDS: INSULIN ASPART (*BKC) 100 UNITS/ML SUB-Q ×2 (12:30→17:31)
[2020-10-09] MEDS: methylPREDNISolone SOD SUCC 40 MG VIAL IV PUSH ×3 (12:30→23:53)
[2020-10-09] MEDS: LEVALBUTEROL NEB 1.25 MG/3 ML 0.63 MG INHALATION ×2 (14:21→20:09)
--- NOTE | 2020-10-09 14:45 | PM.IMPN ---
Progress Note: A&P Assessment and Plan (1) Acute respiratory distress: Code(s): R06.03 - Acute respiratory distress Status: Acute Assessment and Plan: 10/09/20 14:45 The patient is listed as a DNR and I verified with the patient. Patient was severely acidotic. And had an elevated lactic. Most likely due to the acidosis. The patient is on a BiPAP at this time with the settings as mentioned above. Repeat ABGs this morning. Patient was started on azithromycin and Rocephin. Pulmonary consultation has been placed. Patient is chronically on oxygen at 2 L at home. We have a 30% bleed in to the BiPAP. The patient has leukocytosis so we started him on the community-acquired pneumonia antibiotic stewardship. Continue with nebulizer treatments and Solu-Medrol. 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 (2) COPD (chronic obstructive pulmonary disease): Qualifiers: COPD type: COPD with acute exacerbation Qualified Code(s): J44.1 - Chronic obstructive pulmonary disease with (acute) exacerbation Code(s): J44.9 - Chronic obstructive pulmonary disease, unspecified Status: Acute Assessment and Plan: I did consult pulmonology. Continue with neb treatments, Solu-Medrol, antibiotics, and BiPAP. Continue with Singulair (3) Community acquired pneumonia: Qualifiers: Laterality: unspecified laterality Qualified Code(s): J18.9 - Pneumonia, unspecified organism Code(s): J18.9 - Pneumonia, unspecified organism Status: Acute Assessment and Plan: Patient was started on azithromycin and Rocephin per antibiotic stewardship. Blood cultures are pending. (4) Hypertension: Qualifiers: Hypertension type: unspecified Qualified Code(s): I10 - Essential (primary) hypertension Code(s): I10 - Essential (primary) hypertension Status: Acute Assessment and Plan: Metoprolol and lisinopril. (5) Tachycardia: Code(s): R00.0 - Tachycardia, unspecified Status: Acute Assessment and Plan: Could be related to Respiratory distress. The patient is on metoprolol (6) Cardiomyopathy: Code(s): I42.9 - Cardiomyopathy, unspecified Status: Acute Assessment and Plan: The patient is on an aspirin, atorvastatin, metoprolol and lisinopril Subjective Date/time seen: 10/09/20 14:45 The patient is listed as a DNR and I verified with the patient. Patient was severely acidotic. And had an elevated lactic. Most likely due to the acidosis. The patient is on a BiPAP at this time with the settings as mentioned above. Repeat ABGs this morning. Patient was started on azithromycin and Rocephin. Pulmonary consultation has been placed. Patient is chronically on oxygen at 2 L at home. We have a 30% bleed in to the BiPAP. The patient has leukocytosis so we started him on the community-acquired pneumonia antibiotic stewardship. Continue with nebulizer treatments and Solu-Medrol. 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
[2020-10-09 16:45] LABS: Glucose Point of Care 204 (65-105)
[2020-10-09 19:50] LABS: Glucose Point of Care 206 (65-105)
[2020-10-10] VITALS (25 sets, daily range): BP systolic 99–128; BP diastolic 42–89; PULSE 78–115; RESP 16–32; TEMP 36.2–36.3; O2SAT 92–98
[2020-10-10] MEDS: LEVALBUTEROL NEB 1.25 MG/3 ML 0.63 MG INHALATION ×5 (02:00→19:59)
[2020-10-10 05:09] LABS: Alveolar/Arterial O2 Gradient 45.2 mmHg; Base Excess ABG 2.9 mEq/l (+/-2.0); Fractional Inspired Oxygen 28 %; HCO3 ABG 27.6 mEq/l (22.0-26.0); Oxygen Content ABG 17.8 %vol (16.0-22.0); Oxygen Saturation ABG 97.9 % (95.0-100.0); Oxyhemoglobin 96.6 % THb (90.0-100.0); PCO2 ABG 42.8 mmHg (35.0-45.0); PO2 ABG 103.9 mmHg (80.0-100.0); PO2 FiO2 Ratio Arterial Blood 3.71 %; pH ABG 7.427 (7.350-7.450)
[2020-10-10 05:12] LABS: Modified Allen's Test Pass; Site Drawn RIGHT RADIAL
[2020-10-10 05:13] LABS: Device NON-INVASIVE VENT
[2020-10-10 05:14] LABS: Non-Invasive Vent Rate 16 /MIN
[2020-10-10] MEDS: methylPREDNISolone SOD SUCC 40 MG VIAL IV PUSH (05:21)
--- NOTE | 2020-10-10 07:11 | PCRCNOTE ---
Home Trilogy arrangements being made with [facility] (phone [phone]). Trilogy to be set-up in hospital today.
[2020-10-10 08:22] LABS: Glucose Point of Care 141 (65-105)
[2020-10-10] MEDS: IPRATROPIUM BR 0.02% INH SOLN 0.5 MG/2.5 ML VIAL INHALATION ×4 (08:32→19:59)
[2020-10-10] MEDS: MONTELUKAST SODIUM 10 MG TABLET PO (08:36)
[2020-10-10] MEDS: ASPIRIN 81 MG ENTERIC TABLET PO (08:36)
[2020-10-10] MEDS: METOPROLOL SUCCINATE EXT REL 50 MG TABCR PO (08:36)
[2020-10-10] MEDS: ATORVASTATIN 20 MG TABLET PO (08:36)
[2020-10-10] MEDS: lisinopriL 5 MG TABLET PO (08:36)
[2020-10-10] MEDS: guaiFENesin 12 HR 600 MG TABCR PO ×2 (08:36→20:28)
--- NOTE | 2020-10-10 10:15 | PCDIET ---
Nutrition Follow-Up Complete: Nutrition Diagnosis: Involuntary weight loss related to poor appetite as evidenced by reported and documented significant weight loss (7% x 1 month) without trying. Nutrition Goal: Patient to consume 75% of meals/supplements or greater. Goal met. Patient consuming 100% of meals on regular diet with Ensure Compact TID. Last recorded weight is 61.6 kg which is stable. Bowel Motility: No documented BM as of yet. Labs Reviewed: Glu (141) Meds Noted: Lipitor, Rocephin, Prinivil, Solu Medrol, Zithromax, Atrovent, Xopenex, Toprol XL Additional Notes: No skin breakdown documented. Will continue to monitor with same goal. Nutrition Monitoring and Evaluation: Follow up in 5 days.
--- NOTE | 2020-10-10 11:27 | PM.PNPUL ---
Progress Note: A&P Assessment and Plan (1) COPD exacerbation: Code(s): J44.1 - Chronic obstructive pulmonary disease with (acute) exacerbation Status: Acute Assessment and Plan: 10/09 Patient carries a diagnosis of COPD and has hyperinflation on his chest x-ray. I have no PFTs at this time. Patient currently with a COPD exacerbation with increased shortness of breath worsening hypercarbia and hypoxemia. I will continue his Solu-Medrol and decrease the dose to 40 mg IV q.6 hours. I will continue ipratropium 0.5 mg nebulizers Q 6 hours and continue his leave albuterol at 0.63 mg TID hours nebulized (H/O assymtpomatic SVT last hospitalization). patient has chronic respiratory failure from his COPD with an elevated carbon dioxide level of 82 and an elevated serum bicarbonate level of 33. Patient was tried on BiPAP last night with improvement in his blood gas but he is unable to tolerate because the breath is uncomfortable for him. He would benefit from a noninvasive ventilator to prevent future decompensation from his severe COPD. I will initiate noninvasive ventilation tonight with an AVAPS mode of ventilation. 10/10 Currently the patient states that he is slowly improving. Saturations are 99% on room air. Changed to prednisone 50 today. CXR without change. I will change to ipratropium 0.5 mg nebulizers Q 4 HR while awake and continue his levalbuterol at 0.63 mg Q 4 HR while awake nebulized. Ceftriaxone and azithro (both day 2) for possible pneumonia. I will check CT scan to assess for infiltrates and COPD changes. Possible DC home on 10/11. (2) Acute respiratory failure with hypoxia and hypercarbia: Code(s): J96.01 - Acute respiratory failure with hypoxia; J96.02 - Acute respiratory failure with hypercapnia Status: Acute Assessment and Plan: 10/09 patient had previously required 2 L nasal cannula oxygen at night and currently he is on room air with saturations 93-94%. Patient has hypercarbic respiratory failure with a blood gas of 7.17/82/66 that improved on BiPAP 15/8 to 7.35/52/120. I will initiate APAP mode of ventilation with a backup rate of 16, tidal volume 450, E Pap 5, minimal IPAP 6, maximal IPAP 25, 30% FIO2. Will check a blood gas in the morning to assess ventilation with the settings. I have discussed with the creative services coordinator regarding qualifications for home noninvasive ventilator. 10/10 Patient wore AVAPS Rate of 16, tidal volume 450, EPAP 5, minimal inspiratory pressure 6, maximal inspiratory pressure 25, 28% FiO2 with a fullface nasal mask. Patient states that he slept poorly but did get some sleep. Patient had a blood gas at the end of the night on the settings with a pH of 7.43/43/104. Currently the patient states that he is slowly improving. Saturations are 99% on room air. Changed to prednisone 50 today. CXR without change. Patient's [employer] company came to the hospital in set up his home AVAPS-AE machine with a respiratory rate of 16, tidal volume 450, minimal EPAP 5, maximal EPAP 12, minimal IPAP 6, maximal IPAP 25, maximal pressure 35, inspiratory time 1.2 seconds, and 2 L bleed in. I will order an ABG in the morning prior to removal of the noninvasive ventilator and an overnight oximetry to assess oxygenation. Will follow with you. Subjective Date/time seen: 10/10/20 11:27 Interval history: This is an 80-year-old man with a history of COPD on 2 L oxygen at night, nonischemic cardiomyopathy, atrial fibrillation with RVR, who is followed in our Pulmonary Clinic. I saw the patient once on 09/18/2020 and at that time he had continued symptoms with a CAT score of 17 and I changed him to nebulized long-acting beta agonist, I added Spiriva Respimat and continued his lev albuterol nebulizers p.r.n.. I ordered PFTs, resting ABG, overnight oximetry on 2 L, home O2 assessment and a CT to screen for lung cancer. None of that testing had been performed. Patient had called the of
[2020-10-10 12:12] LABS: Glucose Point of Care 138 (65-105)
[2020-10-10] MEDS: predniSONE 10 MG TABLET 50 MG PO (12:26)
--- NOTE | 2020-10-10 14:16 | PC.NURSE ---
Pt to CT via wheelchair. Pt to be transported to [facility] after scan. Report given to REGINA Perez @ [phone]
--- NOTE | 2020-10-10 14:46 | PM.IMPN ---
Progress Note: A&P Assessment and Plan (1) Acute respiratory distress: Code(s): R06.03 - Acute respiratory distress Status: Inactive Assessment and Plan: 10/10/20 14:46 The patient is listed as a DNR and I verified with the patient. Patient was severely acidotic. And had an elevated lactic. Most likely due to the acidosis. The patient is on a BiPAP at this time with the settings as mentioned above. Repeat ABGs this morning. Patient was started on azithromycin and Rocephin. Pulmonary consultation has been placed. Patient is chronically on oxygen at 2 L at home. We have a 30% bleed in to the BiPAP. The patient has leukocytosis so we started him on the community-acquired pneumonia antibiotic stewardship. Continue with nebulizer treatments and Solu-Medrol. 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 10/10 today patient states feeling better compared to yesterday denies any cough or shortness of breath, patient is seen by pulmonology recommended to continue Atrovent and Xopenex, patient is on azithromycin Rocephin for pneumonia, press operator [employer] print [employer] has ordered CT scan of the chest to further evaluate pneumonia and COPD, will follow-up and further recommendation to follow, his is present in the room. (2) COPD (chronic obstructive pulmonary disease): Qualifiers: COPD type: COPD with acute exacerbation Qualified Code(s): J44.1 - Chronic obstructive pulmonary disease with (acute) exacerbation Code(s): J44.9 - Chronic obstructive pulmonary disease, unspecified Status: Acute Assessment and Plan: I did consult pulmonology. Continue with neb treatments, Solu-Medrol, antibiotics, and BiPAP. Continue with Singulair (3) Community acquired pneumonia: Qualifiers: Laterality: unspecified laterality Qualified Code(s): J18.9 - Pneumonia, unspecified organism Code(s): J18.9 - Pneumonia, unspecified organism Status: Acute Assessment and Plan: Patient was started on azithromycin and Rocephin per antibiotic stewardship. Blood cultures are pending. (4) Hypertension: Qualifiers: Hypertension type: unspecified Qualified Code(s): I10 - Essential (primary) hypertension Code(s): I10 - Essential (primary) hypertension Status: Acute Assessment and Plan: Metoprolol and lisinopril. (5) Tachycardia: Code(s): R00.0 - Tachycardia, unspecified Status: Acute Assessment and Plan: Could be related to Respiratory distress. The patient is on metoprolol (6) Cardiomyopathy: Code(s): I42.9 - Cardiomyopathy, unspecified Status: Acute Assessment and Plan: The patient is on an aspirin, atorvastatin, metoprolol and lisinopril Subjective Date/time seen: 10/10/20 14:46 The patient is listed as a DNR and I verified with the patient. Patient was severely acidotic. And had an elevated lactic. Most likely due to the acidosis. The patient is on a BiPAP at this time with the settings as mentioned above. Repeat ABGs this morning. Patient was started on azithromycin and Rocephin. Pulmonary consultation has been placed. Patient is chronically on oxygen at 2 L at home. We have a 30% bleed in to the BiPAP. The patient has leukocytosis so we started him on the community-acquired pneumonia antibiotic stewardship. Continue with nebulizer treatments and Solu-Medrol. 10/09 patient is 80-year-old male with history of chronic respiratory failu
[2020-10-10 15:10] LABS: Anion Gap 5 mmol/L (8-16); Blood Urea Nitrogen 34 mg/dL (9-20); Calcium 9.5 mg/dL (8.4-10.2); Carbon Dioxide 34 mmol/L (22-30); Chloride 101 mmol/L (98-107); Estimated CRCL calculation 56 ml/min; Estimated Glomerular Filt Rate > 60; Glucose 134 mg/dL (75-110); Potassium 4.4 mmol/L (3.4-5.0); Sodium 140 mmol/L (137-145)
[2020-10-10 18:13] LABS: Glucose Point of Care 132 (65-105)
[2020-10-10 20:34] LABS: Glucose Point of Care 185 (65-105)
[2020-10-11] VITALS (20 sets, daily range): BP systolic 133–152; BP diastolic 62–77; PULSE 76–110; RESP 16–22; TEMP 36–36.2; O2SAT 87–98
[2020-10-11 04:45] LABS: Alveolar/Arterial O2 Gradient 57.5 mmHg; Base Excess ABG 5.8 mEq/l (+/-2.0); Fractional Inspired Oxygen 28 %; HCO3 ABG 31.4 mEq/l (22.0-26.0); Oxygen Content ABG 18.4 %vol (16.0-22.0); Oxygen Saturation ABG 96.3 % (95.0-100.0); Oxyhemoglobin 95.1 % THb (90.0-100.0); PCO2 ABG 49.8 mmHg (35.0-45.0); PO2 ABG 83.4 mmHg (80.0-100.0); PO2 FiO2 Ratio Arterial Blood 2.98 %; Total Hemoglobin 13.7 g/dL (12.0-18.0); pH ABG 7.418 (7.350-7.450)
[2020-10-11 04:47] LABS: Device OTHER DEVICE; Site Drawn RIGHT BRACHIAL
[2020-10-11 05:37] LABS: Hematocrit 40.9 % (42.0-52.0); Mean Corpuscular HGB Conc 31.8 g/dl (32-36); Mean Corpuscular Hemoglobin 30.6 pg (26-34); Mean Corpuscular Volume 96.2 fl (80-100); Mean Platelet Volume 10.6 fl (7.4-10.4); Platelet Count Result 165 k/mm3 (150-375); Red Blood Count 4.25 M/mm3 (4.6-6.20); Red Cell Distribution Width 13.5 % (11.5-14.5); White Blood Count 22.1 K/mm3 (4.5-10.0)
[2020-10-11 05:52] LABS: Anion Gap 1 mmol/L (8-16); Blood Urea Nitrogen 32 mg/dL (9-20); Carbon Dioxide 36 mmol/L (22-30); Chloride 103 mmol/L (98-107); Estimated CRCL calculation 73 ml/min; Estimated Glomerular Filt Rate > 60; Glucose 97 mg/dL (75-110); Potassium 4.9 mmol/L (3.4-5.0); Sodium 140 mmol/L (137-145)
[2020-10-11 06:17] LABS: Glucose Point of Care 99 (65-105)
--- NOTE | 2020-10-11 07:15 | PC.NURSE ---
Called to room by patient. Patient stating I can't breathe . Breathing extremely labored. Patient dyspneic and struggling. HOB elevated. Patient on room air. Placed patient on nasal cannula at 3 liters and instructed patient to try to slow down his breathing. Patient began calming down slowly and breathing became less labored. O2 sat obtained was 89% on 3 liters initially but began improving quickly with oxygen in place. O2 sat up to 98% within minutes. Decreased O2 to 2 liters (home setting) and O2 sat settled around 95%. Other vital signs: HR 101, BP 152/77, Temp 97.1, RR 22. Patient states the episode began with a hot flash followed by difficulty breathing and he was using his urinal when the episode began. Dr. Valdivia here and notified of episode.
[2020-10-11] MEDS: LEVALBUTEROL NEB 1.25 MG/3 ML 0.63 MG INHALATION (07:34)
[2020-10-11] MEDS: IPRATROPIUM BR 0.02% INH SOLN 0.5 MG/2.5 ML VIAL INHALATION ×3 (07:34→16:56)
[2020-10-11] MEDS: predniSONE 10 MG TABLET 50 MG PO (09:37)
[2020-10-11] MEDS: guaiFENesin 12 HR 600 MG TABCR PO ×2 (09:38→21:05)
[2020-10-11] MEDS: ASPIRIN 81 MG ENTERIC TABLET PO (09:38)
[2020-10-11] MEDS: ATORVASTATIN 20 MG TABLET PO (09:38)
[2020-10-11] MEDS: lisinopriL 5 MG TABLET PO (09:39)
[2020-10-11] MEDS: METOPROLOL SUCCINATE EXT REL 50 MG TABCR PO (09:39)
--- NOTE | 2020-10-11 10:13 | PM.IMPN ---
Progress Note: A&P Assessment and Plan (1) Acute respiratory distress: Code(s): R06.03 - Acute respiratory distress Status: Inactive Assessment and Plan: 10/11/20 10:13 The patient is listed as a DNR and I verified with the patient. Patient was severely acidotic. And had an elevated lactic. Most likely due to the acidosis. The patient is on a BiPAP at this time with the settings as mentioned above. Repeat ABGs this morning. Patient was started on azithromycin and Rocephin. Pulmonary consultation has been placed. Patient is chronically on oxygen at 2 L at home. We have a 30% bleed in to the BiPAP. The patient has leukocytosis so we started him on the community-acquired pneumonia antibiotic stewardship. Continue with nebulizer treatments and Solu-Medrol. 10/09 patient is 80-year-old male with history of chronic respiratory failure secondary to hypercapnia was initially seen the [place] emergency depart and patient was transferred to the hospital as his electoral officer is here, upon arrival patient had pCO2 80 and patient was placed on BiPAP and his CO2 has improved, patient is being treated Solu-Medrol, updraft, there is a concern for atypical pneumonia and patient is treated with a Rocephin azithromycin patient states is feeling much better compared to when he arrived, his is present. 10/10 today patient states feeling better compared to yesterday denies any cough or shortness of breath, patient is seen by pulmonology recommended to continue Atrovent and Xopenex, patient is on azithromycin Rocephin for pneumonia, electoral officer has ordered CT scan of the chest to further evaluate pneumonia and COPD, will follow-up and further recommendation to follow, his is present in the room. 10/11 Early this morning patient had an episode of hypoxia when he got up to use urinal at bedside and became short of breath, he was not wearing his oxygen, nurse put 2L of oxygen and after few patient returned to his baseline, seen by Dr. Harden suspect bronchospasm as patient has severe COPD. also patient wore his trilogy last night and felt better Dr. Harden is making some adjustments will monitor patient overnight, will continue updraft, zithromycine, Rocephin and methylprednisone is taper to prednisone orally 50 mg q.d. will taper as patient's symptoms improved, will give the patient flutter valve, will have PT OT evaluate the patient (2) COPD (chronic obstructive pulmonary disease): Qualifiers: COPD type: COPD with acute exacerbation Qualified Code(s): J44.1 - Chronic obstructive pulmonary disease with (acute) exacerbation Code(s): J44.9 - Chronic obstructive pulmonary disease, unspecified Status: Acute Assessment and Plan: I did consult pulmonology. Continue with neb treatments, Solu-Medrol, antibiotics, and BiPAP. Continue with Singulair (3) Community acquired pneumonia: Qualifiers: Laterality: unspecified laterality Qualified Code(s): J18.9 - Pneumonia, unspecified organism Code(s): J18.9 - Pneumonia, unspecified organism Status: Acute Assessment and Plan: Patient was started on azithromycin and Rocephin per antibiotic stewardship. Blood cultures are pending. (4) Hypertension: Qualifiers: Hypertension type: unspecified Qualified Code(s): I10 - Essential (primary) hypertension Code(s): I10 - Essential (primary) hypertension Status: Acute Assessment and Plan: Metoprolol and lisinopril. (5) Tachycardia: Code(s): R00.0 - Tachycardia, unspecified Status: Acute Assessment and Plan: Could be related to Respiratory distress. The patient is on metoprolol (6) Cardiomyopathy: Code(s): I42.9 - Cardiomyopathy, unspecified Status: Acute Assessment and Plan: The patient is on an aspirin, atorvastatin, metoprolol and lisinopril Subjective Date/time seen: 10/11/20 10:13 The patient is listed as a DNR an
--- NOTE | 2020-10-11 10:40 | HOMEO2EVAL ---
Evaluation was performed at [facility] Home Oxygen Evaluation RC: Home Oxygen (O2) Evaluation Start: 10/11/20 08:24 Freq: ONCE Status: Active Protocol: RPE Activity Type Activity Date Activity User E-Sign Co-Sign Detail Recorded Client Recorded Date Recorded By Document 10/11/20 10:19 KRM [email or web address] 10/11/20 10:37 KRM Document 10/11/20 10:20 KRM [email or web address] 10/11/20 10:38 KRM Document 10/11/20 10:20 KRM [email or web address] 10/11/20 10:37 KRM Document 10/11/20 10:21 KRM [email or web address] 10/11/20 10:40 KRM 10/11/20 10/11/20 10/11/20 10:19 10:20 10:20 Home O2 Evaluation Test Phase Resting Exercise Exercise Oxygen Delivery Room Air Room Air Nasal Cannula Oxygen Flow Rate (L/min) 1 Pulse Oximetry (90-100 %) 91 87 L 89 L Pulse Rate (60-100 beats/min) 102 H 109 H 110 H Activity Tolerance Fair Fair Treatment Charges O2 Evaluation - Inpatient 10/11/20 10:21 Home O2 Evaluation Test Phase Exercise Oxygen Delivery Nasal Cannula Oxygen Flow Rate (L/min) 2 Pulse Oximetry (90-100 %) 90 Pulse Rate (60-100 beats/min) 107 H Activity Tolerance Fair Treatment Charges
--- NOTE | 2020-10-11 11:54 | PM.PNPUL ---
Progress Note: A&P Assessment and Plan (1) COPD exacerbation: Code(s): J44.1 - Chronic obstructive pulmonary disease with (acute) exacerbation Status: Acute Assessment and Plan: 10/09 Patient carries a diagnosis of COPD and has hyperinflation on his chest x-ray. I have no PFTs at this time. Patient currently with a COPD exacerbation with increased shortness of breath worsening hypercarbia and hypoxemia. I will continue his Solu-Medrol and decrease the dose to 40 mg IV q.6 hours. I will continue ipratropium 0.5 mg nebulizers Q 6 hours and continue his leave albuterol at 0.63 mg TID hours nebulized (H/O assymtpomatic SVT last hospitalization). patient has chronic respiratory failure from his COPD with an elevated carbon dioxide level of 82 and an elevated serum bicarbonate level of 33. Patient was tried on BiPAP last night with improvement in his blood gas but he is unable to tolerate because the breath is uncomfortable for him. He would benefit from a noninvasive ventilator to prevent future decompensation from his severe COPD. I will initiate noninvasive ventilation tonight with an AVAPS mode of ventilation. 10/10 Currently the patient states that he is slowly improving. Saturations are 99% on room air. Changed to prednisone 50 today. CXR without change. I will change to ipratropium 0.5 mg nebulizers Q 4 HR while awake and continue his levalbuterol at 0.63 mg Q 4 HR while awake nebulized. Ceftriaxone and azithro (both day 2) for possible pneumonia. I will check CT scan to assess for infiltrates and COPD changes. Cornet valve. 10/11 This morning patient had an episode of shortness of breath that started after he was getting out of bed to urinate when he developed a little bit of shortness of breath then a hot flash and then shortness of breath requiring a stat bronchodilator and placing him back on oxygen. It feels like he cannot move air when this happens. Continue prednisone 50 mg PO Q day (day 3 steroids). Continue ipratropium 0.5 mg nebulizers Q 4 HR while awake and increase his levalbuterol from 0.63 mg to 1.25 mg Q 4 HR while awake nebulized. Ceftriaxone and azithro (both day 3) for possible pneumonia. Normal mikhail on sputum culture. Possible DC home on 10/12 on these pulmonary medications Prednisone 12 day taper with 40 mg PO Q day X 3days, Followed by 30 mg p.o. q.day x3 days, followed by 20 mg p.o. Q day x3 days, followed by 10 mg p.o. q.day x3 days and then off. Levaquin 750 mg p.o. last dose on 10/15 for a total of 7 days of antibiotics. Ipratropium 0.5 mg nebulizers QID at 07:00, 12:00, 17:00 and 22:00 (fits his schedule). Levalbuterol 1.25 mg nebulizer QID at 07:00, 12:00, 17:00 and 22:00 (fits his schedule). Budesonide 0.5 mg nebulizer BID at 07:00 and 17:00 Montelukast 10 mg PO Q day Daytime oxygen per formal home O2 assessment Home AVAPS-AE machine when sleeps with a respiratory rate of 20, tidal volume 500, minimal EPAP 5, maximal EPAP 12, minimal IPAP 6, maximal IPAP 25, maximal pressure 35, inspiratory time 1.2 seconds, and 2 L bleed in. Discussed with Dr. Valdivia. Follow up in pulmonary clinic in 3 weeks. (2) Acute respiratory failure with hypoxia and hypercarbia: Code(s): J96.01 - Acute respiratory failure with hypoxia; J96.02 - Acute respiratory failure with hypercapnia Status: Acute Assessment and Plan: 10/09 patient had previously required 2 L nasal cannula oxygen at night and currently he is on room air with saturations 93-94%. Patient has hypercarbic respiratory failure with a blood gas of 7.17/82/66 that improved on BiPAP 26/01 to 7.35/52/120. I will initiate APAP mode of ventilation with a backup rate of 16, tidal volume 450, E Pap 5, minimal IPAP 6, maximal IPAP 25, 30% FIO2. Will check a blood gas in the morning to assess ventilation with the settings. I have discussed with the respiratory care assistant regarding qualifications for home noninvasive ventilator. 10/10 Patient wore A
[2020-10-11 12:32] LABS: Glucose Point of Care 103 (65-105)
[2020-10-11 17:39] LABS: Glucose Point of Care 125 (65-105)
[2020-10-11] MEDS: polyethylene glycoL 3350 17 GM POWD.PACK PO (18:16)
[2020-10-11 21:19] LABS: Glucose Point of Care 147 (65-105)
--- NOTE | 2020-10-11 21:56 | PCRCNOTE ---
Window of time for administration has passed. See next scheduled administration.
[2020-10-12] VITALS (14 sets, daily range): BP systolic 125–134; BP diastolic 59–80; PULSE 69–103; RESP 16–21; TEMP 36.2–36.4; O2SAT 95–100
[2020-10-12 03:52] LABS: Alveolar/Arterial O2 Gradient 56.1 mmHg; Base Excess ABG 9.9 mEq/l (+/-2.0); Fractional Inspired Oxygen 28 %; HCO3 ABG 36.2 mEq/l (22.0-26.0); Oxygen Content ABG 19.1 %vol (16.0-22.0); Oxygen Saturation ABG 95.8 % (95.0-100.0); Oxyhemoglobin 94.3 % THb (90.0-100.0); PCO2 ABG 54.9 mmHg (35.0-45.0); PO2 ABG 78.8 mmHg (80.0-100.0); PO2 FiO2 Ratio Arterial Blood 2.81 %; Total Hemoglobin 14.4 g/dL (12.0-18.0)
[2020-10-12 03:54] LABS: Modified Allen's Test Pass; Site Drawn RIGHT RADIAL
[2020-10-12 03:55] LABS: Device NON-INVASIVE VENT
[2020-10-12 03:56] LABS: Non-Invasive Expiratory Pressure 5 CMH2O; Non-Invasive Inspiratory Pressure 25 CMH2O
[2020-10-12 03:57] LABS: pH ABG 7.437 (7.350-7.450)
[2020-10-12 05:43] LABS: Hemoglobin 13.8 g/dL (14.0-18.0); Mean Corpuscular HGB Conc 32.1 g/dl (32-36); Mean Corpuscular Hemoglobin 30.5 pg (26-34); Mean Corpuscular Volume 95.1 fl (80-100); Mean Platelet Volume 11.3 fl (7.4-10.4); Platelet Count Result 185 k/mm3 (150-375); Red Blood Count 4.52 M/mm3 (4.6-6.20); Red Cell Distribution Width 13.5 % (11.5-14.5); White Blood Count 18.9 K/mm3 (4.5-10.0)
[2020-10-12] MEDS: IPRATROPIUM BR 0.02% INH SOLN 0.5 MG/2.5 ML VIAL INHALATION ×4 (06:48→23:56)
[2020-10-12 07:29] LABS: Blood Urea Nitrogen 30 mg/dL (9-20); Carbon Dioxide > 40 mmol/L (22-30); Chloride 101 mmol/L (98-107); Estimated CRCL calculation 59 ml/min; Estimated Glomerular Filt Rate > 60; Glucose 115 mg/dL (75-110); Sodium 144 mmol/L (137-145)
[2020-10-12] MEDS: ATORVASTATIN 20 MG TABLET PO (08:09)
[2020-10-12] MEDS: lisinopriL 5 MG TABLET PO (08:09)
[2020-10-12] MEDS: MONTELUKAST SODIUM 10 MG TABLET PO (08:09)
[2020-10-12] MEDS: ASPIRIN 81 MG ENTERIC TABLET PO (08:09)
[2020-10-12] MEDS: predniSONE 10 MG TABLET 50 MG PO (08:10)
[2020-10-12] MEDS: guaiFENesin 12 HR 600 MG TABCR PO ×2 (08:10→20:14)
[2020-10-12] MEDS: METOPROLOL SUCCINATE EXT REL 50 MG TABCR PO (08:10)
--- NOTE | 2020-10-12 10:43 | PM.IMPN ---
Progress Note: A&P Assessment and Plan (1) Acute respiratory distress: Code(s): R06.03 - Acute respiratory distress Status: Inactive Assessment and Plan: 10/12/20 10:43 The patient is listed as a DNR and I verified with the patient. Patient was severely acidotic. And had an elevated lactic. Most likely due to the acidosis. The patient is on a BiPAP at this time with the settings as mentioned above. Repeat ABGs this morning. Patient was started on azithromycin and Rocephin. Pulmonary consultation has been placed. Patient is chronically on oxygen at 2 L at home. We have a 30% bleed in to the BiPAP. The patient has leukocytosis so we started him on the community-acquired pneumonia antibiotic stewardship. Continue with nebulizer treatments and Solu-Medrol. 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 10/10 today patient states feeling better compared to yesterday denies any cough or shortness of breath, patient is seen by pulmonology recommended to continue Atrovent and Xopenex, patient is on azithromycin Rocephin for pneumonia, bar welder has ordered CT scan of the chest to further evaluate pneumonia and COPD, will follow-up and further recommendation to follow, his is present in the room. 10/11 Early this morning patient had an episode of hypoxia when he got up to use urinal at bedside and became short of breath, he was not wearing his oxygen, nurse put 2L of oxygen and after few patient returned to his baseline, seen by Dr. Harden suspect bronchospasm as patient has severe COPD. also patient wore his trilogy last night and felt better Dr. Harden is making some adjustments will monitor patient overnight, will continue updraft, zithromycine, Rocephin and methylprednisone is taper to prednisone orally 50 mg q.d. will taper as patient's symptoms improved, will give the patient flutter valve, will have PT OT evaluate the patient. 10/12 again last night patient had an episode of hypoxia and sweating the bar welder suspect bronchospasm, this episodes happen when patient is off oxygen and does exertion, I have recommended patient continue wearing oxygen as he has end-stage COPD and will require low concentration of oxygen 1-2 L at rest and with minimal exertion, will continue azithromycin and Rocephin, patient is on prednisone 50 mg q.day, patient will be seen by pulmonology and further recommendation to follow. (2) COPD (chronic obstructive pulmonary disease): Qualifiers: COPD type: COPD with acute exacerbation Qualified Code(s): J44.1 - Chronic obstructive pulmonary disease with (acute) exacerbation Code(s): J44.9 - Chronic obstructive pulmonary disease, unspecified Status: Acute Assessment and Plan: I did consult pulmonology. Continue with neb treatments, Solu-Medrol, antibiotics, and BiPAP. Continue with Singulair (3) Community acquired pneumonia: Qualifiers: Laterality: unspecified laterality Qualified Code(s): J18.9 - Pneumonia, unspecified organism Code(s): J18.9 - Pneumonia, unspecified organism Status: Acute Assessment and Plan: Patient was started on azithromycin and Rocephin per antibiotic stewardship. Blood cultures are pending. (4) Hypertension: Qualifiers: Hypertension type: unspecified Qualified Code(s): I10 - Essential (primary) hypertension Code(s): I10 - Essential (primary) hypertension Status: Acute Assessment and Plan:
[2020-10-12] MEDS: IPRATROPIUM BR 0.02% INH SOLN 0.5 MG/2.5 ML VIAL (11:42)
[2020-10-12 12:01] LABS: Glucose Point of Care 87 (65-105)
[2020-10-12 16:35] LABS: Glucose Point of Care 150 (65-105)
[2020-10-12] MEDS: MELATONIN 3 MG TABLET PO (20:14)
[2020-10-12 20:55] LABS: Glucose Point of Care 172 (65-105)
--- NOTE | 2020-10-12 20:55 | PM.PNPUL ---
Progress Note: A&P Assessment and Plan (1) COPD exacerbation: Code(s): J44.1 - Chronic obstructive pulmonary disease with (acute) exacerbation Status: Acute Assessment and Plan: 10/09 Patient carries a diagnosis of COPD and has hyperinflation on his chest x-ray. No prior PFTs available. He is improving, had severe shortness of breath with worsening hypercarbia and hypoxemia, improved. I will continue his Solu-Medrol and decrease the dose to 40 mg IV q.6 hours. I will continue ipratropium 0.5 mg nebulizers Q 6 hours and continue his leave albuterol at 0.63 mg TID hours nebulized (H/O assymtpomatic SVT last hospitalization). He has chronic respiratory failure from his COPD with an elevated carbon dioxide level of 82 and an elevated serum bicarbonate level of 33. Patient was tried on BiPAP last night with improvement in his blood gas but he is unable to tolerate because the breath is uncomfortable for him. He would benefit from a noninvasive ventilator to prevent future decompensation from his severe COPD. I will initiate noninvasive ventilation tonight with an AVAPS mode of ventilation. 10/10 Currently the patient states that he is slowly improving. Saturations are 99% on room air. Changed to prednisone 50 today. CXR without change. I will change to ipratropium 0.5 mg nebulizers Q 4 HR while awake and continue his levalbuterol at 0.63 mg Q 4 HR while awake nebulized. Ceftriaxone and azithro (both day 2) for possible pneumonia. I will check CT scan to assess for infiltrates and COPD changes. Cornet valve. 10/11 This morning patient had an episode of shortness of breath that started after he was getting out of bed to urinate when he developed a little bit of shortness of breath then a hot flash and then shortness of breath requiring a stat bronchodilator and placing him back on oxygen. It feels like he cannot move air when this happens. Continue prednisone 50 mg PO Q day (day 3 steroids). Continue ipratropium 0.5 mg nebulizers Q 4 HR while awake and increase his levalbuterol from 0.63 mg to 1.25 mg Q 4 HR while awake nebulized. Ceftriaxone and azithro (both day 3) for possible pneumonia. Normal mikhail on sputum culture. Possible DC home soon on these pulmonary medications: Prednisone 12 day taper with 40 mg PO Q day X 3days, Followed by 30 mg p.o. q.day x3 days, followed by 20 mg p.o. Q day x3 days, followed by 10 mg p.o. q.day x3 days and then off. Levaquin 750 mg p.o. last dose on 10/15 for a total of 7 days of antibiotics. Ipratropium 0.5 mg nebulizers QID at 07:00, 12:00, 17:00 and 22:00 (fits his schedule). Levalbuterol 1.25 mg nebulizer QID at 07:00, 12:00, 17:00 and 22:00 (fits his schedule). Budesonide 0.5 mg nebulizer BID at 07:00 and 17:00 Montelukast 10 mg PO Q day Daytime oxygen per formal home O2 assessment Home AVAPS-AE machine when sleeps with a respiratory rate of 20, tidal volume 500, minimal EPAP 5, maximal EPAP 12, minimal IPAP 6, maximal IPAP 25, maximal pressure 35, inspiratory time 1.2 seconds, and 2 L bleed in. Follow up in pulmonary clinic in 3 weeks. (2) Acute respiratory failure with hypoxia and hypercarbia: Code(s): J96.01 - Acute respiratory failure with hypoxia; J96.02 - Acute respiratory failure with hypercapnia Status: Acute Assessment and Plan: 10/09 patient had previously required 2 L nasal cannula oxygen at night and currently he is on room air with saturations 93-94%. Patient has hypercarbic respiratory failure with a blood gas of 7.17/82/66 that improved on BiPAP 15/8 to 7.35/52/120. I will initiate APAP mode of ventilation with a backup rate of 16, tidal volume 450, E Pap 5, minimal IPAP 6, maximal IPAP 25, 30% FIO2. Will check a blood gas in the morning to assess ventilation with the settings. I have discussed with the revenue coordinator regarding qualifications for home noninvasive ventilator. 10/10 Patient wore AVAPS Rate of 16, tidal volume 450, EPAP 5, minimal inspira
[2020-10-13] VITALS (19 sets, daily range): BP systolic 108–133; BP diastolic 54–84; PULSE 63–94; RESP 16–20; TEMP 36–36.5; O2SAT 94–98
[2020-10-13] MEDS: IPRATROPIUM BR 0.02% INH SOLN 0.5 MG/2.5 ML VIAL INHALATION ×5 (03:56→20:10)
[2020-10-13 05:33] LABS: Hematocrit 40.6 % (42.0-52.0); Hemoglobin 12.8 g/dL (14.0-18.0); Mean Corpuscular HGB Conc 31.5 g/dl (32-36); Mean Corpuscular Hemoglobin 30.8 pg (26-34); Mean Corpuscular Volume 97.8 fl (80-100); Mean Platelet Volume 11.7 fl (7.4-10.4); Platelet Count Result 154 k/mm3 (150-375); Red Blood Count 4.15 M/mm3 (4.6-6.20); Red Cell Distribution Width 13.5 % (11.5-14.5); White Blood Count 14.5 K/mm3 (4.5-10.0)
[2020-10-13 05:53] LABS: Anion Gap -3 mmol/L (8-16); Blood Urea Nitrogen 29 mg/dL (9-20); Calcium 9.1 mg/dL (8.4-10.2); Carbon Dioxide 37 mmol/L (22-30); Chloride 104 mmol/L (98-107); Estimated CRCL calculation 77 ml/min; Estimated Glomerular Filt Rate > 60; Glucose 82 mg/dL (75-110); Potassium 4.2 mmol/L (3.4-5.0); Sodium 138 mmol/L (137-145)
[2020-10-13 07:22] LABS: Glucose Point of Care 75 (65-105)
[2020-10-13] MEDS: predniSONE 10 MG TABLET 50 MG PO (08:57)
[2020-10-13] MEDS: METOPROLOL SUCCINATE EXT REL 50 MG TABCR PO (08:57)
[2020-10-13] MEDS: lisinopriL 5 MG TABLET PO (08:57)
[2020-10-13] MEDS: ATORVASTATIN 20 MG TABLET PO (08:57)
[2020-10-13] MEDS: guaiFENesin 12 HR 600 MG TABCR PO ×2 (08:57→20:55)
[2020-10-13] MEDS: ASPIRIN 81 MG ENTERIC TABLET PO (08:57)
[2020-10-13 12:09] LABS: Glucose Point of Care 100 (65-105)
--- NOTE | 2020-10-13 13:48 | PM.PNPUL ---
Progress Note: A&P Assessment and Plan (1) COPD exacerbation: Code(s): J44.1 - Chronic obstructive pulmonary disease with (acute) exacerbation Status: Acute Assessment and Plan: PLAN: Add anxiolytic; start low dose buspar and stop oral ativan Hospice Consult Explain that Trilogy NPPV can help at night as well as in the day as needed for shortness of breath Physical Therapy O2 adjustment; he needs less than 2 L/at rest. Sati is 96% on 2 L/min at rest. Fan blowing is helpful as this decreases the sensation of breathlessness. 10/09 Patient carries a diagnosis of COPD and has hyperinflation on his chest x-ray. No prior PFTs available. He is improving, had severe shortness of breath with worsening hypercarbia and hypoxemia, improved. I will continue his Solu-Medrol and decrease the dose to 40 mg IV q.6 hours. I will continue ipratropium 0.5 mg nebulizers Q 6 hours and continue his leave albuterol at 0.63 mg TID hours nebulized (H/O assymtpomatic SVT last hospitalization). He has chronic respiratory failure from his COPD with an elevated carbon dioxide level of 82 and an elevated serum bicarbonate level of 33. Patient was tried on BiPAP last night with improvement in his blood gas but he is unable to tolerate because the breath is uncomfortable for him. He would benefit from a noninvasive ventilator to prevent future decompensation from his severe COPD. I will initiate noninvasive ventilation tonight with an AVAPS mode of ventilation. 10/10 Currently the patient states that he is slowly improving. Saturations are 99% on room air. Changed to prednisone 50 today. CXR without change. I will change to ipratropium 0.5 mg nebulizers Q 4 HR while awake and continue his levalbuterol at 0.63 mg Q 4 HR while awake nebulized. Ceftriaxone and azithro (both day 2) for possible pneumonia. I will check CT scan to assess for infiltrates and COPD changes. Cornet valve. 10/11 This morning patient had an episode of shortness of breath that started after he was getting out of bed to urinate when he developed a little bit of shortness of breath then a hot flash and then shortness of breath requiring a stat bronchodilator and placing him back on oxygen. It feels like he cannot move air when this happens. Continue prednisone 50 mg PO Q day (day 3 steroids). Continue ipratropium 0.5 mg nebulizers Q 4 HR while awake and increase his levalbuterol from 0.63 mg to 1.25 mg Q 4 HR while awake nebulized. Ceftriaxone and azithro (both day 3) for possible pneumonia. Normal mikhail on sputum culture. Possible DC home soon on these pulmonary medications: Prednisone 12 day taper with 40 mg PO Q day X 3days, Followed by 30 mg p.o. q.day x3 days, followed by 20 mg p.o. Q day x3 days, followed by 10 mg p.o. q.day x3 days and then off. Levaquin 750 mg p.o. last dose on 10/15 for a total of 7 days of antibiotics. Ipratropium 0.5 mg nebulizers QID at 07:00, 12:00, 17:00 and 22:00 (fits his schedule). Levalbuterol 1.25 mg nebulizer QID at 07:00, 12:00, 17:00 and 22:00 (fits his schedule). Budesonide 0.5 mg nebulizer BID at 07:00 and 17:00 Montelukast 10 mg PO Q day Daytime oxygen per formal home O2 assessment Home AVAPS-AE machine when sleeps with a respiratory rate of 20, tidal volume 500, minimal EPAP 5, maximal EPAP 12, minimal IPAP 6, maximal IPAP 25, maximal pressure 35, inspiratory time 1.2 seconds, and 2 L bleed in. Follow up in pulmonary clinic in 3 weeks. (2) Acute respiratory failure with hypoxia and hypercarbia: Code(s): J96.01 - Acute respiratory failure with hypoxia; J96.02 - Acute respiratory failure with hypercapnia Status: Acute Assessment and Plan: 10/09 patient had previously required 2 L nasal cannula oxygen at night and currently he is on room air with saturations 93-94%. Patient has hypercarbic respiratory failure with a blood gas of 7.17/82/66 that improved on BiPAP 15/8 to 7.35/52/120. I will initiate
--- NOTE | 2020-10-13 16:18 | PM.IMPN ---
Progress Note: A&P Assessment and Plan (1) Acute respiratory distress: Code(s): R06.03 - Acute respiratory distress Status: Inactive Assessment and Plan: 10/13/20 16:18 The patient is listed as a DNR and I verified with the patient. Patient was severely acidotic. And had an elevated lactic. Most likely due to the acidosis. The patient is on a BiPAP at this time with the settings as mentioned above. Repeat ABGs this morning. Patient was started on azithromycin and Rocephin. Pulmonary consultation has been placed. Patient is chronically on oxygen at 2 L at home. We have a 30% bleed in to the BiPAP. The patient has leukocytosis so we started him on the community-acquired pneumonia antibiotic stewardship. Continue with nebulizer treatments and Solu-Medrol. 10/09 patient is 80-year-old male with history of chronic respiratory failure secondary to hypercapnia was initially seen the [place] emergency depart and patient was transferred to the hospital as his quality improvement manager is here, upon arrival patient had pCO2 80 and patient was placed on BiPAP and his CO2 has improved, patient is being treated Solu-Medrol, updraft, there is a concern for atypical pneumonia and patient is treated with a Rocephin azithromycin patient states is feeling much better compared to when he arrived, his is present. 10/10 today patient states feeling better compared to yesterday denies any cough or shortness of breath, patient is seen by pulmonology recommended to continue Atrovent and Xopenex, patient is on azithromycin Rocephin for pneumonia, quality improvement manager has ordered CT scan of the chest to further evaluate pneumonia and COPD, will follow-up and further recommendation to follow, his is present in the room. 10/11 Early this morning patient had an episode of hypoxia when he got up to use urinal at bedside and became short of breath, he was not wearing his oxygen, nurse put 2L of oxygen and after few patient returned to his baseline, seen by Dr. Harden suspect bronchospasm as patient has severe COPD. also patient wore his trilogy last night and felt better Dr. Hraden is making some adjustments will monitor patient overnight, will continue updraft, zithromycine, Rocephin and methylprednisone is taper to prednisone orally 50 mg q.d. will taper as patient's symptoms improved, will give the patient flutter valve, will have PT OT evaluate the patient. 10/12 again last night patient had an episode of hypoxia and sweating the quality improvement manager suspect bronchospasm, this episodes happen when patient is off oxygen and does exertion, I have recommended patient continue wearing oxygen as he has end-stage COPD and will require low concentration of oxygen 1-2 L at rest and with minimal exertion, will continue azithromycin and Rocephin, patient is on prednisone 50 mg q.day, patient will be seen by pulmonology and further recommendation to follow. 10/13 patient continued to have bronchospasm episode and hypoxia, today patient was seen by Dr. Hilliard and had a long discussion with the patient and family, the prognosis is very poor as patient has end-stage COPD recommending hospice care, patient and his have agreed and we have consulted primary care coordinator to arrange for hospice, will continue present management and further recommendation to follow (2) COPD (chronic obstructive pulmonary disease): Qualifiers: COPD type: COPD with acute exacerbation Qualified Code(s): J44.1 - Chronic obstructive pulmonary disease with (acute) exacerbation Code(s): J44.9 - Chronic obstructive pulmonary disease, unspecified Status: Acute Assessment and Plan: I did consult pulmonology. Continue with neb treatments, Solu-Medrol, antibiotics, and BiPAP. Continue with Singulair (3) Community acquired pneumonia: Qualifiers: Laterality: unspecified laterality Qualified Code(s): J18.9 - Pneumonia, unspecified organism Code(s): J18.9 - Pneumonia, unspecifie
[2020-10-13 17:36] LABS: Glucose Point of Care 164 (65-105)
[2020-10-13] MEDS: MELATONIN 3 MG TABLET PO (20:55)
[2020-10-13] MEDS: busPIRone HCL 5 MG TABLET PO (20:56)
[2020-10-14] VITALS (11 sets, daily range): BP systolic 124; BP diastolic 54; PULSE 73–91; RESP 18–20; TEMP 36.2; O2SAT 92–97
[2020-10-14 00:07] LABS: Glucose Point of Care 161 (65-105)
[2020-10-14] MEDS: IPRATROPIUM BR 0.02% INH SOLN 0.5 MG/2.5 ML VIAL INHALATION ×4 (00:27→11:14)
[2020-10-14 05:20] LABS: Hematocrit 39.2 % (42.0-52.0); Hemoglobin 12.7 g/dL (14.0-18.0); Mean Corpuscular HGB Conc 32.4 g/dl (32-36); Mean Corpuscular Hemoglobin 30.8 pg (26-34); Mean Corpuscular Volume 95.1 fl (80-100); Mean Platelet Volume 10.9 fl (7.4-10.4); Platelet Count Result 165 k/mm3 (150-375); Red Blood Count 4.12 M/mm3 (4.6-6.20); Red Cell Distribution Width 13.1 % (11.5-14.5); White Blood Count 13.8 K/mm3 (4.5-10.0)
[2020-10-14 05:38] LABS: Blood Urea Nitrogen 31 mg/dL (9-20); Calcium 8.9 mg/dL (8.4-10.2); Carbon Dioxide > 40 mmol/L (22-30); Chloride 100 mmol/L (98-107); Estimated CRCL calculation 69 ml/min; Estimated Glomerular Filt Rate > 60; Glucose 92 mg/dL (75-110); Potassium 4.7 mmol/L (3.4-5.0); Sodium 137 mmol/L (137-145)
[2020-10-14 07:41] LABS: Glucose Point of Care 77 (65-105)
[2020-10-14] MEDS: lisinopriL 5 MG TABLET PO (08:44)
[2020-10-14] MEDS: MONTELUKAST SODIUM 10 MG TABLET PO (08:44)
[2020-10-14] MEDS: guaiFENesin 12 HR 600 MG TABCR PO (08:44)
[2020-10-14] MEDS: busPIRone HCL 5 MG TABLET PO (08:44)
[2020-10-14] MEDS: METOPROLOL SUCCINATE EXT REL 50 MG TABCR PO (08:44)
[2020-10-14] MEDS: predniSONE 10 MG TABLET 50 MG PO (08:46)
[2020-10-14] MEDS: ASPIRIN 81 MG ENTERIC TABLET PO (08:46)
[2020-10-14] MEDS: ATORVASTATIN 20 MG TABLET PO (08:46)
--- NOTE | 2020-10-14 09:47 | PM.PNPUL ---
Progress Note: A&P Assessment and Plan (1) COPD exacerbation: Code(s): J44.1 - Chronic obstructive pulmonary disease with (acute) exacerbation Status: Acute Assessment and Plan: 10/09 Patient carries a diagnosis of COPD and has hyperinflation on his chest x-ray. No prior PFTs available. He is improving, had severe shortness of breath with worsening hypercarbia and hypoxemia, improved. I will continue his Solu-Medrol and decrease the dose to 40 mg IV q.6 hours. I will continue ipratropium 0.5 mg nebulizers Q 6 hours and continue his leave albuterol at 0.63 mg TID hours nebulized (H/O assymtpomatic SVT last hospitalization). He has chronic respiratory failure from his COPD with an elevated carbon dioxide level of 82 and an elevated serum bicarbonate level of 33. Patient was tried on BiPAP last night with improvement in his blood gas but he is unable to tolerate because the breath is uncomfortable for him. He would benefit from a noninvasive ventilator to prevent future decompensation from his severe COPD. I will initiate noninvasive ventilation tonight with an AVAPS mode of ventilation. 10/10 Currently the patient states that he is slowly improving. Saturations are 99% on room air. Changed to prednisone 50 today. CXR without change. I will change to ipratropium 0.5 mg nebulizers Q 4 HR while awake and continue his levalbuterol at 0.63 mg Q 4 HR while awake nebulized. Ceftriaxone and azithro (both day 2) for possible pneumonia. I will check CT scan to assess for infiltrates and COPD changes. Cornet valve. 10/11 This morning patient had an episode of shortness of breath that started after he was getting out of bed to urinate when he developed a little bit of shortness of breath then a hot flash and then shortness of breath requiring a stat bronchodilator and placing him back on oxygen. It feels like he cannot move air when this happens. Continue prednisone 50 mg PO Q day (day 3 steroids). Continue ipratropium 0.5 mg nebulizers Q 4 HR while awake and increase his levalbuterol from 0.63 mg to 1.25 mg Q 4 HR while awake nebulized. Ceftriaxone and azithro (both day 3) for possible pneumonia. Normal mikhail on sputum culture. 10/13 PLAN: Add anxiolytic; start low dose buspar and stop oral ativan Hospice Consult Explain that Trilogy NPPV can help at night as well as in the day as needed for shortness of breath Physical Therapy O2 adjustment; he needs less than 2 L/at rest. Sati is 96% on 2 L/min at rest. Fan blowing is helpful as this decreases the sensation of breathlessness. 10/14 Patient with no wheezes, tolerating 6 hours of AVAPS-AE. Continue below regimen at home. Plan for DC with hospice. DC home soon on these pulmonary medications: Prednisone 12 day taper with 40 mg PO Q day X 3days, Followed by 30 mg p.o. q.day x3 days, followed by 20 mg p.o. Q day x3 days, followed by 10 mg p.o. q.day x3 days and then off. Levaquin 750 mg p.o. last dose on 10/15 for a total of 7 days of antibiotics. Ipratropium 0.5 mg nebulizers QID at 07:00, 12:00, 17:00 and 22:00 (fits his schedule). Levalbuterol 1.25 mg nebulizer QID at 07:00, 12:00, 17:00 and 22:00 (fits his schedule). Budesonide 0.5 mg nebulizer BID at 07:00 and 17:00 Montelukast 10 mg PO Q day RA at rest, 2 L with ambulation Home AVAPS-AE machine when sleeps with a respiratory rate of 20, tidal volume 500, minimal EPAP 5, maximal EPAP 12, minimal IPAP 6, maximal IPAP 25, maximal pressure 35, inspiratory time 1.2 seconds, and 2 L bleed in. Buspar 5 mg PO Q 12 melatoinin 3 mg PO Q HS. Follow up in pulmonary clinic in [address] Valdivia. (2) Acute respiratory failure with hypoxia and hypercarbia: Code(s): J96.01 - Acute respiratory failure with hypoxia; J96.02 - Acute respiratory failure with hypercapnia Status: Acute Assessment and Plan: 10/09 patient had previously required 2 L nasal cannula oxygen at night and cur
--- NOTE | 2020-10-14 10:24 | PM.DS ---
DS: Admitting Diagnosis Admitting Diagnosis Admitting Diagnosis: Shortness of breath DS: Discharge Diagnosis Discharge Diagnosis (1) Acute respiratory distress: Code(s): R06.03 - Acute respiratory distress Status: Inactive Assessment and Plan: 10/13/20 16:18 The patient is listed as a DNR and I verified with the patient. Patient was severely acidotic. And had an elevated lactic. Most likely due to the acidosis. The patient is on a BiPAP at this time with the settings as mentioned above. Repeat ABGs this morning. Patient was started on azithromycin and Rocephin. Pulmonary consultation has been placed. Patient is chronically on oxygen at 2 L at home. We have a 30% bleed in to the BiPAP. The patient has leukocytosis so we started him on the community-acquired pneumonia antibiotic stewardship. Continue with nebulizer treatments and Solu-Medrol. 10/09 patient is 80-year-old male with history of chronic respiratory failure secondary to hypercapnia was initially seen the [place] emergency depart and patient was transferred to the hospital as his bundle helper is here, upon arrival patient had pCO2 80 and patient was placed on BiPAP and his CO2 has improved, patient is being treated Solu-Medrol, updraft, there is a concern for atypical pneumonia and patient is treated with a Rocephin azithromycin patient states is feeling much better compared to when he arrived, his is present. 10/10 today patient states feeling better compared to yesterday denies any cough or shortness of breath, patient is seen by pulmonology recommended to continue Atrovent and Xopenex, patient is on azithromycin Rocephin for pneumonia, bundle helper has ordered CT scan of the chest to further evaluate pneumonia and COPD, will follow-up and further recommendation to follow, his is present in the room. 10/11 Early this morning patient had an episode of hypoxia when he got up to use urinal at bedside and became short of breath, he was not wearing his oxygen, nurse put 2L of oxygen and after few patient returned to his baseline, seen by Dr. Harden suspect bronchospasm as patient has severe COPD. also patient wore his trilogy last night and felt better Dr. Harden is making some adjustments will monitor patient overnight, will continue updraft, zithromycine, Rocephin and methylprednisone is taper to prednisone orally 50 mg q.d. will taper as patient's symptoms improved, will give the patient flutter valve, will have PT OT evaluate the patient. 10/12 again last night patient had an episode of hypoxia and sweating the bundle helper suspect bronchospasm, this episodes happen when patient is off oxygen and does exertion, I have recommended patient continue wearing oxygen as he has end-stage COPD and will require low concentration of oxygen 1-2 L at rest and with minimal exertion, will continue azithromycin and Rocephin, patient is on prednisone 50 mg q.day, patient will be seen by pulmonology and further recommendation to follow. 10/13 patient continued to have bronchospasm episode and hypoxia, today patient was seen by Dr. Hilliard and had a long discussion with the patient and family, the prognosis is very poor as patient has end-stage COPD recommending hospice care, patient and his have agreed and we have consulted neonatal intensive care nurse to arrange for hospice, will continue present management and further recommendation to follow (2) COPD (chronic obstructive pulmonary disease): Qualifiers: COPD type: COPD with acute exacerbation Qualified Code(s): J44.1 - Chronic obstructive pulmonary disease with (acute) exacerbation Code(s): J44.9 - Chronic obstructive pulmonary disease, unspecified Status: Acute Assessment and Plan: I did consult pulmonology. Continue with neb treatments, Solu-Medrol, antibiotics, and BiPAP. Continue with Singulair (3) Community acquired pneumonia: Qualifiers: Laterality: unspecified laterality Qualified
== END 2020-10-14 11:40 | disposition hospice, home (50) | DRG 190 ==
LOC: ANHIMU 10-10 13:34 → ANH2MED 10-11 02:41 → ANHIMU 10-18 09:25
PROVIDERS: Internal Medicine Pulmonary Disease; Nurse Practitioner; Admitting Provider Family Medicine; PCP Family Medicine; Visit Provider Family Medicine
DX: J44.1 Chronic obstructive pulmonary disease with (acute) exacerbation (principal); J18.9 Pneumonia, unspecified organism; I42.8 Other cardiomyopathies; J96.11 Chronic respiratory failure with hypoxia; J96.12 Chronic respiratory failure with hypercapnia; J44.0 Chronic obstructive pulmonary disease with (acute) lower respiratory infection; R00.0 Tachycardia, unspecified; E78.5 Hyperlipidemia, unspecified; I27.20 Pulmonary hypertension, unspecified; I11.0 Hypertensive heart disease with heart failure; I50.9 Heart failure, unspecified; I48.91 Unspecified atrial fibrillation; Z66 Do not resuscitate; Z79.899 Other long term (current) drug therapy; Z99.81 Dependence on supplemental oxygen; Z87.891 Personal history of nicotine dependence
CPT/HCPCS: 36415; 36600; 71045; 71250; 80048; 80053; 82375; 82805; 82948; 83050; 83605; 85025; 85027; 87070; 87205; 94002; 94003; 94618; 94640; A9270; J0456; J0696; J1815; J2060; J2920; J2930; J7512